=== PATIENT | male | born 1950 | race Caucasian/White ===

== ENCOUNTER → 2019-11-15 | Outpatient (CLI) | payer OTHER ==
[~2019-11-15] MED LIST: ALBU90OI6; ALBU90OI6 INH; ALPR1; ALPR1 PO; AMLO10 PO; AMLO5; ARIP10 PO; ASPI325 PO; ASPI81CH PO; Abilify2 MG PO; Antivert25 MG PO; BUTONI; CARI350 PO; CARV25 PO; CLOB.05TC TOP; CYCL10; DESV50 PO; Dyazide 37.5-21 EACH PO; FISH1000 PO; FLUT.05NI; FURO20; GABA300 PO; GABA300T24 PO; HYDCOR1TC TOP; HYDR10 PO; IMMODIUM A-D PO; Klor-Con 1010 MEQ PO; LISI10; LISINOPRIL PO; MEDICAL MARIJUANA; METH10; METH5; METO50; METPHE20 PO; METPHE5 PO; MORP15ER PO; MULVITMIND; Minocycline HC100 M1 PO; Norco 5-325 Ta1 EACH PO; OTC ALLERGY MED; OXYACE5T PO; POTCHL20ER; POTCHL20ER PO; PRAVASTATIN SOD10 MG PO; PSEU120ER PO; Pepto-Bism525 MG/15 PO; Pravachol PO; QUET100 PO; Robaxin-750750 MG PO; SODCHL.65S; SOMA350 MG PO; TIZA4 PO; TRIA80TC TOP; TRIHYD253A; TRIHYD253A PO; ZESTRIL40 MG PO
[2019-11-20 17:09] LABS: METHYLPHENIDATE 88 ng/mL (.); RITALINIC ACID >10000 ng/mL (.)
== END | disposition home or self-care (01) ==
LOC: LAB EV 08:42 → LAB SHORT 08:42
PROVIDERS: Nurse Practitioner Psychiatric/Mental Health
DX: Z51.81 Encounter for therapeutic drug level monitoring (principal); Z79.899 Other long term (current) drug therapy
CPT/HCPCS: G0480

== ENCOUNTER 2020-06-03 08:32 | Day surgery (SDC) | payer OTHER ==
[~2020-06-03] VITALS: Ht 180.3 cm; Wt 134.5 kg
== END 2020-06-03 11:05 | disposition home or self-care (01) ==
LOC: ORSCSDS 08:32
PROVIDERS: Internal Medicine Gastroenterology
PROC: 0DB78ZX Excision of Stomach, Pylorus, Via Natural or Artificial Opening Endoscopic, Diagnostic (ICD-10-PCS; principal; 2020-06-03 10:00)
PROC: 0DB58ZX Excision of Esophagus, Via Natural or Artificial Opening Endoscopic, Diagnostic (ICD-10-PCS; principal; 2020-06-03 10:00)
PROC: 0DB98ZX Excision of Duodenum, Via Natural or Artificial Opening Endoscopic, Diagnostic (ICD-10-PCS; principal; 2020-06-03 10:00)
DX: K21.9 Gastro-esophageal reflux disease without esophagitis (principal); K29.70 Gastritis, unspecified, without bleeding; G47.33 Obstructive sleep apnea (adult) (pediatric); E66.01 Morbid (severe) obesity due to excess calories; Z68.41 Body mass index [BMI] 40.0-44.9, adult; I10 Essential (primary) hypertension; E78.5 Hyperlipidemia, unspecified; J44.9 Chronic obstructive pulmonary disease, unspecified; R73.03 Prediabetes; Z79.899 Other long term (current) drug therapy
CPT/HCPCS: 82947; 87081; 88305; 88342; J2250; J2704; J7120

== ENCOUNTER → 2021-09-24 | Outpatient (CLI) | payer OTHER | END | disposition home or self-care (01) | LOC: LAB SHORT 09:25 → LAB 09:25 | DX: R22.42 Localized swelling, mass and lump, left lower limb (principal) | CPT/HCPCS: 85379 ==

== ENCOUNTER 2022-05-06 04:43 | Emergency (ER) | payer OTHER ==
[~2022-05-06] VITALS: Ht 180.3 cm; Wt 147.4 kg
== END 2022-05-06 06:52 | disposition home or self-care (01) ==
LOC: ER 04:43
DX: M16.12 Unilateral primary osteoarthritis, left hip (principal); I10 Essential (primary) hypertension; Z88.0 Allergy status to penicillin; Z91.040 Latex allergy status; Z79.899 Other long term (current) drug therapy
CPT/HCPCS: 73502; 96372; 99284-25; A9270; J1885

== ENCOUNTER 2022-05-11 08:52 | Emergency (ER) | payer OTHER ==
[~2022-05-11] VITALS: Ht 180.3 cm; Wt 136.1 kg
[2022-05-11] MEDS ORDERED: Roxicodone5 MG PO (12:25)
== END 2022-05-11 13:28 | disposition home or self-care (01) ==
LOC: ER 08:52
DX: M16.12 Unilateral primary osteoarthritis, left hip (principal); G89.29 Other chronic pain; M54.50 Low back pain, unspecified; R19.4 Change in bowel habit; I11.0 Hypertensive heart disease with heart failure; I50.9 Heart failure, unspecified; E11.9 Type 2 diabetes mellitus without complications; E78.5 Hyperlipidemia, unspecified; G47.30 Sleep apnea, unspecified; Z88.0 Allergy status to penicillin; Z91.040 Latex allergy status; Z79.899 Other long term (current) drug therapy
CPT/HCPCS: 72131; 99284-25; A9270

== ENCOUNTER 2022-06-16 11:32 | Inpatient (IN) | payer OTHER ==
[~2022-06-16] VITALS: Ht 180.3 cm; Wt 132.3 kg
[~2022-06-16 11:32] MED LIST changes: +Roxicodone5 MG PO
[2022-06-16 13:22] LABS: BASOPHILS ABSOLUTE AUTO 0.06 K/mm3 (0.00-0.23); BASOPHILS PERCENT AUTO 1 % (0-2); EOSINOPHILS PERCENT AUTO 2 % (0-6); Hematocrit 43.9 % (37.0-53.0); Hemoglobin 15.2 g/dL (13.5-17.5); IMMATURE GRAN ABSOLUTE AUTO 0.07 K/mm3 (0.00-0.10); IMMATURE GRAN PERCENT AUTO 1 % (0-1); LYMPHOCYTES ABSOLUTE AUTO 1.93 K/mm3 (0.84-5.20); LYMPHOCYTES PERCENT AUTO 17 % (21-46); MONOCYTES ABSOLUTE AUTO 0.82 K/mm3 (0.16-1.47); MONOCYTES PERCENT AUTO 7 % (4-13); Mean Corpuscular HGB 29.9 pg (26.0-34.0); Mean Corpuscular HGB Conc 34.6 g/dL (31.5-36.5); Mean Corpuscular Volume 86 fL (80-100); Mean Platelet Volume 9.4 fL (9.1-12.4); NEUTROPHILS ABSOLUTE AUTO 8.33 K/mm3 (1.96-9.15); NEUTROPHILS PERCENT AUTO 73 % (41-73); Platelet Count 314 K/mm3 (150-400); RDW Coefficient Variation 13.2 % (11.7-14.2); RDW Standard Deviation 41.2 fL (35.1-46.3); Red Blood Cell Count 5.09 M/mm3 (4.30-5.90); White Blood Cell Count 11.41 K/mm3 (4.00-11.30)
[2022-06-16 13:35] LABS: Bun/Creatinine Ratio 18.8 (12.0-20.0); Calcium, Blood 9.5 mg/dL (8.5-10.1); Creatinine, Blood 0.69 mg/dL (0.60-1.20); Potassium, Blood 3.8 mmol/L (3.5-5.5)
[2022-06-16 15:31] LABS: International Normalized Ratio 1.19; Prothrombin Time Results 12.4 Sec (9.7-11.5)
[2022-06-16] MEDS ORDERED: OMEP20ER PO (16:32)
[2022-06-16] MEDS ORDERED: FLOMAX0.4 MG PO (16:33)
[2022-06-16] MEDS ORDERED: TIZANIDINE HCL2 M1 PO (16:34)
[2022-06-16 17:28] VITALS: BP 197/66
--- NOTE | 2022-06-16 18:01 | NUR ---
ARRIVED FROM ED VIA GURNEY, TRANSFERRED TO BED, A&OX4, DENIES ANY PAIN AT THIS TIME, DR. TREVIÑO SAW PT THIS EVENING, ORIENTED TO ROOM AND CALL LIGHT, PAS PLACED, RT FOR CPAP, NPO AFTER MN.
[2022-06-16 19:27] VITALS: BP 164/83
[2022-06-17] VITALS (18 sets, daily range): BP systolic 94–154; BP diastolic 44–84
--- NOTE | 2022-06-17 04:48 | NUR ---
SHIFT SUMMARY ADMITTED FOR L HIP FX, PATIENT IS AOX4. NPO SINCE MIDNIGHT FOR POSSIBLE SURGERY. PAIN MANAGED WITH PO MEDS PER ORDERS. IV IS SALINE LOCKED PATIENT HAS A HX OF CHF, NOTED EDEMA IN BLE. LUNGS SOUNDS CLEAR AND DIMINSHED BASES. CPAP ON THROUGHOUT NIGHT. BLEED IN OF 3L O2. SATS REMAIN ABOVE 94%. CONT. PULSE OX ON. SCD'S IN PLACE. PATIENT VOIDING USING URINAL. DENIES N/T, N/V. VSS. CALL LIGHT IN REACH. WILL REPORT TO DAY RN
[2022-06-17 06:21] LABS: BASOPHILS ABSOLUTE AUTO 0.05 K/mm3 (0.00-0.23); BASOPHILS PERCENT AUTO 1 % (0-2); EOSINOPHILS ABSOLUTE AUTO 0.22 K/mm3 (0.00-0.68); EOSINOPHILS PERCENT AUTO 3 % (0-6); Hematocrit 41.6 % (37.0-53.0); Hemoglobin 14.1 g/dL (13.5-17.5); IMMATURE GRAN ABSOLUTE AUTO 0.04 K/mm3 (0.00-0.10); IMMATURE GRAN PERCENT AUTO 1 % (0-1); LYMPHOCYTES ABSOLUTE AUTO 1.65 K/mm3 (0.84-5.20); LYMPHOCYTES PERCENT AUTO 20 % (21-46); MONOCYTES ABSOLUTE AUTO 0.67 K/mm3 (0.16-1.47); MONOCYTES PERCENT AUTO 8 % (4-13); Mean Corpuscular HGB 29.5 pg (26.0-34.0); Mean Corpuscular HGB Conc 33.9 g/dL (31.5-36.5); Mean Corpuscular Volume 87 fL (80-100); NEUTROPHILS ABSOLUTE AUTO 5.51 K/mm3 (1.96-9.15); NEUTROPHILS PERCENT AUTO 68 % (41-73); Platelet Count 256 K/mm3 (150-400); RDW Coefficient Variation 13.5 % (11.7-14.2); RDW Standard Deviation 42.7 fL (35.1-46.3); Red Blood Cell Count 4.78 M/mm3 (4.30-5.90); White Blood Cell Count 8.14 K/mm3 (4.00-11.30)
--- NOTE | 2022-06-17 10:52 | NUR ---
Spiritual Care Pt. Request Attempted Pt. is soundly resting. Will attempt to see Pt. before the end of my flex shift.
--- NOTE | 2022-06-17 11:50 | NUR ---
PATIENT IS BEING TAKEN BACK TO THE OR.
--- NOTE | 2022-06-17 12:25 | NUR ---
History, Chart, Medications and Allergies reviewed before start of procedure. Lungs clear T/O to Auscultation. Patient confirms NPO status and agrees with scheduled surgery. Pre-Op teaching done. Pt verbalizes understanding. SAUL PATEL AND PHIL ESTRADA SENT WITH PT TO OR. REPORT TO ANDI LIGHT
--- NOTE | 2022-06-17 17:22 | NUR ---
PATIENT CAME BACK FROM PACU TODAY AT 1720. POD 0 LEFT TOTAL HIP- POSTERIOR PATIENT IS A&OX4. VS ARE WNL AND IS ON RA. PATIENT REPORTS A 2/10 PAIN BUT REFUSES PAIN MEDICATION AT THIS TIME. HIS LEFT HIP HAS FOAM WITH GAUZE X2 THAT ARE C/D/I. DENIES NUMBNESS OR TINGLING. CAN WIGGLE ALL FINGERS AND TOES WHEN ASKED. HE IS TOLERATING PO INTAKE AND HAS ATTENDS IN PLACE. IMMOBILIZER IS ALSO IN PLACE ON THE LEFT LEG WITH A ROLLED UP TOWEL IN BETWEEN LEGS. PATIENT IS LAYING IN BED WATCHING TV WITH CALL LIGHT IN REACH.
[2022-06-18 00:09] VITALS: BP 136/72
[2022-06-18 04:30] VITALS: BP 139/75
[2022-06-18 04:48] LABS: BASOPHILS ABSOLUTE AUTO 0.02 K/mm3 (0.00-0.23); BASOPHILS PERCENT AUTO 0 % (0-2); EOSINOPHILS PERCENT AUTO 0 % (0-6); Hematocrit 36.4 % (37.0-53.0); Hemoglobin 12.4 g/dL (13.5-17.5); IMMATURE GRAN ABSOLUTE AUTO 0.07 K/mm3 (0.00-0.10); IMMATURE GRAN PERCENT AUTO 1 % (0-1); LYMPHOCYTES ABSOLUTE AUTO 1.57 K/mm3 (0.84-5.20); LYMPHOCYTES PERCENT AUTO 13 % (21-46); MONOCYTES ABSOLUTE AUTO 0.71 K/mm3 (0.16-1.47); MONOCYTES PERCENT AUTO 6 % (4-13); Mean Corpuscular HGB 29.7 pg (26.0-34.0); Mean Corpuscular HGB Conc 34.1 g/dL (31.5-36.5); Mean Corpuscular Volume 87 fL (80-100); NEUTROPHILS ABSOLUTE AUTO 9.84 K/mm3 (1.96-9.15); NEUTROPHILS PERCENT AUTO 81 % (41-73); Platelet Count 264 K/mm3 (150-400); RDW Coefficient Variation 13.2 % (11.7-14.2); RDW Standard Deviation 42.3 fL (35.1-46.3); Red Blood Cell Count 4.17 M/mm3 (4.30-5.90); White Blood Cell Count 12.21 K/mm3 (4.00-11.30)
[2022-06-18 05:13] LABS: Albumin, Blood 2.5 g/dL (3.4-5.0); Anion Gap 2 mmol/L (6-16); Blood Urea Nitrogen 19 mg/dL (8-24); Bun/Creatinine Ratio 25.3 (12.0-20.0); CO2, Blood 30 mmol/L (21-32); Calcium, Blood 8.4 mg/dL (8.5-10.1); Chloride, Blood 107 mmol/L (98-108); Creatinine, Blood 0.75 mg/dL (0.60-1.20); Glomerular Filtration Rate 95 (60-); Glucose, Blood 128 mg/dL (70-99); Magnesium, Blood 2.1 mg/dL (1.6-2.4); Phosphorus, Blood 3.4 mg/dL (2.5-4.9); Potassium, Blood 3.7 mmol/L (3.5-5.5); Sodium, Blood 139 mmol/L (136-145)
[2022-06-18 07:24] VITALS: BP 146/107
[2022-06-18 07:26] VITALS: BP 143/77
[2022-06-18 15:39] VITALS: BP 119/61
--- NOTE | 2022-06-18 18:24 | NUR ---
SHIFT SUMMARY PT POD 1 L POSTERIOR TOTAL HIP. DRESSINGS CHANGED BY THIS MORNING. C/D/I. GAUZE/ FOAM TAPE IN PLACE. CLOSURE WITH YASHIRA POSTERIOR AND STITCHES ANTERIOR. IMMOBLIZER ON L KNEE IN PLACE WITH ROLLED TOWEL BETWEEN LEGS. A&OX3. O2>95% ON RA. PT INCONTINENT, ATTENDS IN PLACE AND USES URINAL INDEPENDENTLY. PT HAS REDNESS IN FOLDS, MEDICATED PER EMAR. SKIN TEAR ON POSTERIOR UPPER THIGH NOTED IN ASSESSMENT. TODAY IS PT BIRTHDAY. PT ON THE PHONE WITH FAMILY, CALL LIGHT WITHIN REACH. WILL REPORT TO [facility] NURSE.
[2022-06-18 19:18] VITALS: BP 105/61
--- NOTE | 2022-06-19 03:52 | NUR ---
SHIFT SUMMERY PT RESTING IN BED, CALL LIGHTIN REACH. PT HAD INCONT URINE AND BEDDING CHANGED, PT ABLE TO TURN SIDE TO SIDE AND PULL SELF UP TO ASSIST WITH BEDING CHANGE. CALL LIGHT IN REACH.
[2022-06-19 04:22] VITALS: BP 138/60
[2022-06-19 07:26] VITALS: BP 144/72
--- NOTE | 2022-06-19 15:49 | NUR ---
SHIFT SUMMARY POD 2 L TOTAL POSTERIOR HIP. A&OX4. PT USES URINAL, RESIDUAL DRIBBLE. 1 PERSON ASSIST WITH WALKER TO BEDSIDE COMMODE. INCISION C/D/I. NOTICED APPROX 2CM SKIN TEAR IN L ABD FOLD. REDNESS REDUCED WITH USE OF NYSTATIN CREAM. PT PAIN WITHIN ACCEPTABLE LIMITS, MEDICATED PER EMAR. USE OF COLD THERAPY ON HIP. PT RESTING IN BED, CALL LIGHT WITHIN REACH.
[2022-06-19 16:03] VITALS: BP 139/45
[2022-06-19 16:04] VITALS: BP 137/52
[2022-06-19 16:06] VITALS: BP 114/94
--- NOTE | 2022-06-19 18:36 | NUR ---
UPDATE ASSUMED CARE OF PT AT 1600. SINCE PT HAS BEEN UP TO THE COMMODE 4 TIMES HAVING LOOSE STOOLS. TRANSFERRING WITH WALKER AND 2 PERSON ASST. PT DENIES ANY PAIN.
[2022-06-19 19:28] VITALS: BP 119/66
[2022-06-20 04:03] VITALS: BP 126/61
--- NOTE | 2022-06-20 04:57 | NUR ---
SUMMARY: NO ACUTE EVENTS OVERNIGHT. VSS. AOX4. PAIN MEDS PER EMAR. PATIENT AMBULATED 2X ASSIST BETWEEN BED AND CHAIR. INC THROUGHOUT NIGHT CHANGED FREQUENTLY. BED ALARM ON. PATIENT ABLE TO MAKE NEEDS KNOWN.
[2022-06-20 07:24] VITALS: BP 133/67
[2022-06-20] MEDS ORDERED: BACTRIM DS TAB1 EAC1 PO (07:35)
[2022-06-20 11:11] VITALS: BP 143/71
[2022-06-20 14:45] VITALS: BP 109/60
--- NOTE | 2022-06-20 16:12 | NUR ---
SHIFT SUMMARY PATIENT IS ALERT AND ORIENTED X3. PATIENT HAS HAD NO ACUTE EVENTS THIS SHIFT. VITAL SIGNS REVIEWED. PATIENT HAS BEEN A ONE PERSON ASSIST TO BATHROOM FOR FREQUENT URINATION. PATIENT HAS NOT COMPLAINED OF SOB, NAUSEA, VOMITTING. PAIN IS WELL CONTROLLED WITH SCHEDULED PAIN MEDICATION. PATIENT IS ABLE TO MAKE NEEDS KNOWN. PATIENT HAS BEEN RESTING IN RECLINER MOST OF SHIFT. BED IN LOCKED AND LOWEST POSITION. CALL LIGHT IN PLACE. WILL MONITOR UNTIL SHIFT CHANGE.
--- NOTE | 2022-06-20 17:51 | NUR ---
DISCHARGE SUMMARY PATIENT IS BEING DISCHARGED TO [facility]. REFER TO SHIFT SUMMARY. PATIENT REQUESTED TORADOL BEFORE BEING TRANSFERED. [facility] PICKED UP PATIENT.
== END 2022-06-20 17:50 | DRG 522 ==
LOC: ER 11:32 → SURS 16:16
PROVIDERS: Orthopaedic Surgery; Student in an Organized Health Care Education/Training Program; ADMIT Family Medicine
PROC: 0SRB0JA Replacement of Left Hip Joint with Synthetic Substitute, Uncemented, Open Approach (ICD-10-PCS; principal; 2022-06-17 12:30)
DX: S72.002A Fracture of unspecified part of neck of left femur, initial encounter for closed fracture (principal); Z68.41 Body mass index [BMI] 40.0-44.9, adult; F41.9 Anxiety disorder, unspecified; G47.33 Obstructive sleep apnea (adult) (pediatric); F32.A Depression, unspecified; M19.90 Unspecified osteoarthritis, unspecified site; E66.9 Obesity, unspecified; I11.0 Hypertensive heart disease with heart failure; I50.9 Heart failure, unspecified; I27.20 Pulmonary hypertension, unspecified; E78.5 Hyperlipidemia, unspecified; Z96.653 Presence of artificial knee joint, bilateral; Z98.890 Other specified postprocedural states; Z88.0 Allergy status to penicillin; Z91.040 Latex allergy status; Z79.51 Long term (current) use of inhaled steroids; Z79.899 Other long term (current) drug therapy; W18.39XA Other fall on same level, initial encounter; Y92.000 Kitchen of unspecified non-institutional (private) residence as the place of occurrence of the external cause
CPT/HCPCS: 36415; 72170; 73502; 73560-LT; 80048; 80069; 82947; 83036; 83735; 85025; 85610; 85730; 86850; 86900; 86901; 88305; 88311; 93005; 93010; 94660; 94760; 94762; 96374; 97110; 97116; 97161; 97166; 97530; 97535; 99285-25; A9270; C1713; C1776; J0171; J0690; J0735; J1100; J1170; J1815; J1885; J2370; J2405; J2704; J2795; J3010; J3370; J7120

== ENCOUNTER 2022-08-29 00:24 | Emergency (ER) | payer OTHER ==
[~2022-08-29] VITALS: Ht 180.3 cm; Wt 136.1 kg
[~2022-08-29 00:24] MED LIST changes: +BACTRIM DS TAB1 EAC1 PO; +FLOMAX0.4 MG PO; +OMEP20ER PO; +TIZANIDINE HCL2 M1 PO
[2022-08-29 05:45] VITALS: BP 132/75
== END 2022-08-29 06:20 | disposition home or self-care (01) ==
LOC: ER 00:24
DX: T84.021A Dislocation of internal left hip prosthesis, initial encounter (principal); W06.XXXA Fall from bed, initial encounter; Z88.0 Allergy status to penicillin; Z91.040 Latex allergy status; Z79.899 Other long term (current) drug therapy; I11.0 Hypertensive heart disease with heart failure; I50.9 Heart failure, unspecified; G47.30 Sleep apnea, unspecified; E11.9 Type 2 diabetes mellitus without complications; X58.XXXA Exposure to other specified factors, initial encounter; M19.90 Unspecified osteoarthritis, unspecified site
CPT/HCPCS: 27265; 73501; 73502; 73560-LT; 73560-RT; 96374-59; 96375-59; 99152; 99284-25; J1170; J2405; J2704; J3010; J7030

== ENCOUNTER 2022-09-21 10:47 | Emergency (ER) | payer OTHER ==
[~2022-09-21] VITALS: Ht 177.8 cm; Wt 127.0 kg
[2022-09-21] MEDS ORDERED: AMLODIPINE BESYL5 MG PO (11:05)
[2022-09-21] MEDS ORDERED: DESVENLAFAXINE100 M3 PO (11:05)
[2022-09-21] MEDS ORDERED: DEPAKOTE ER500 M2 PO (11:06)
[2022-09-21] MEDS ORDERED: MELO7.5 PO (11:07)
[2022-09-21 11:15] LABS: BASOPHILS ABSOLUTE AUTO 0.03 K/mm3 (0.00-0.23); BASOPHILS PERCENT AUTO 0 % (0-2); EOSINOPHILS ABSOLUTE AUTO 0.14 K/mm3 (0.00-0.68); EOSINOPHILS PERCENT AUTO 2 % (0-6); Hemoglobin 12.6 g/dL (13.5-17.5); IMMATURE GRAN ABSOLUTE AUTO 0.03 K/mm3 (0.00-0.10); IMMATURE GRAN PERCENT AUTO 0 % (0-1); LYMPHOCYTES PERCENT AUTO 26 % (21-46); MONOCYTES ABSOLUTE AUTO 0.66 K/mm3 (0.16-1.47); MONOCYTES PERCENT AUTO 8 % (4-13); Mean Corpuscular HGB 27.3 pg (26.0-34.0); Mean Corpuscular HGB Conc 32.3 g/dL (31.5-36.5); Mean Corpuscular Volume 84 fL (80-100); Mean Platelet Volume 9.6 fL (9.1-12.4); NEUTROPHILS ABSOLUTE AUTO 4.99 K/mm3 (1.96-9.15); NEUTROPHILS PERCENT AUTO 64 % (41-73); Platelet Count 268 K/mm3 (150-400); RDW Coefficient Variation 15.4 % (11.7-14.2); RDW Standard Deviation 47.6 fL (35.1-46.3); Red Blood Cell Count 4.62 M/mm3 (4.30-5.90); White Blood Cell Count 7.85 K/mm3 (4.00-11.30)
[2022-09-21 11:42] LABS: Albumin, Blood 2.7 g/dL (3.4-5.0); Albumin/Globulin Ratio 0.6 (0.8-1.8); Bilirubin, Total 0.5 mg/dL (0.1-1.0); Bun/Creatinine Ratio 32.5 (12.0-20.0); Calcium, Blood 8.5 mg/dL (8.5-10.1); Creatinine, Blood 0.83 mg/dL (0.60-1.20); Globulin, Blood 4.3 g/dL (2.2-4.0)
[2022-09-21 13:45] VITALS: BP 115/58
[2022-09-21] MEDS ORDERED: CEPH500 PO (13:50)
== END 2022-09-21 14:03 | disposition home or self-care (01) ==
LOC: ER 10:47
PROVIDERS: Emergency Medicine
DX: T42.6X1A Poisoning by other antiepileptic and sedative-hypnotic drugs, accidental (unintentional), initial encounter (principal); L03.116 Cellulitis of left lower limb; I11.0 Hypertensive heart disease with heart failure; I50.9 Heart failure, unspecified; E78.5 Hyperlipidemia, unspecified; E11.9 Type 2 diabetes mellitus without complications; Z88.0 Allergy status to penicillin; Z91.040 Latex allergy status; Z79.899 Other long term (current) drug therapy
CPT/HCPCS: 80053; 84484; 85025; 93005; 93010; 99284-25; J7030

== ENCOUNTER 2022-09-25 07:34 | Emergency (ER) | payer OTHER ==
[~2022-09-25] VITALS: Ht 177.8 cm; Wt 127.0 kg
[~2022-09-25 07:34] MED LIST changes: +AMLODIPINE BESYL5 MG PO; +CEPH500 PO; +DEPAKOTE ER500 M2 PO; +DESVENLAFAXINE100 M3 PO; +MELO7.5 PO
[2022-09-25 08:02] LABS: BASOPHILS ABSOLUTE AUTO 0.03 K/mm3 (0.00-0.23); BASOPHILS PERCENT AUTO 0 % (0-2); EOSINOPHILS ABSOLUTE AUTO 0.04 K/mm3 (0.00-0.68); EOSINOPHILS PERCENT AUTO 0 % (0-6); Hematocrit 41.2 % (37.0-53.0); Hemoglobin 13.6 g/dL (13.5-17.5); IMMATURE GRAN ABSOLUTE AUTO 0.07 K/mm3 (0.00-0.10); IMMATURE GRAN PERCENT AUTO 1 % (0-1); LYMPHOCYTES PERCENT AUTO 19 % (21-46); MONOCYTES ABSOLUTE AUTO 0.64 K/mm3 (0.16-1.47); MONOCYTES PERCENT AUTO 7 % (4-13); Mean Corpuscular HGB 27.2 pg (26.0-34.0); Mean Corpuscular Volume 82 fL (80-100); Mean Platelet Volume 9.4 fL (9.1-12.4); NEUTROPHILS ABSOLUTE AUTO 6.79 K/mm3 (1.96-9.15); NEUTROPHILS PERCENT AUTO 73 % (41-73); Platelet Count 257 K/mm3 (150-400); RDW Coefficient Variation 15.1 % (11.7-14.2); RDW Standard Deviation 45.4 fL (35.1-46.3); White Blood Cell Count 9.37 K/mm3 (4.00-11.30)
[2022-09-25 08:14] LABS: Albumin/Globulin Ratio 0.6 (0.8-1.8); Bilirubin, Total 0.6 mg/dL (0.1-1.0); Bun/Creatinine Ratio 15.3 (12.0-20.0); Calcium, Blood 8.7 mg/dL (8.5-10.1); Creatinine, Blood 0.72 mg/dL (0.60-1.20); Globulin, Blood 4.9 g/dL (2.2-4.0); Potassium, Blood 3.6 mmol/L (3.5-5.5); Total Protein, Blood 7.9 g/dL (6.4-8.2)
[2022-09-25 08:55] VITALS: BP 171/94
== END 2022-09-25 09:10 | disposition home or self-care (01) ==
LOC: ER 07:34
PROVIDERS: Emergency Medicine
DX: T84.021A Dislocation of internal left hip prosthesis, initial encounter (principal); S91.302A Unspecified open wound, left foot, initial encounter; R60.0 Localized edema; I11.0 Hypertensive heart disease with heart failure; I50.9 Heart failure, unspecified; E11.9 Type 2 diabetes mellitus without complications; E78.5 Hyperlipidemia, unspecified; E66.01 Morbid (severe) obesity due to excess calories; Z68.41 Body mass index [BMI] 40.0-44.9, adult; Z88.0 Allergy status to penicillin; Z91.040 Latex allergy status; Z79.899 Other long term (current) drug therapy; W18.30XA Fall on same level, unspecified, initial encounter
CPT/HCPCS: 27265; 73501; 73502; 80053; 82550; 85025; 99152; 99284-25; J2704; J7030

== ENCOUNTER 2022-10-13 09:13 | Inpatient (IN) | payer OTHER ==
[~2022-10-13] VITALS: Ht 175.3 cm; Wt 126.3 kg
[2022-10-13 09:28] LABS: Source, Urine Clean Catch
[2022-10-13 09:30] LABS: Appearance, Urine Clear (Clear); Bilirubin, Urine Neg (Neg); Blood, Urine 1+ (Neg); Color, Urine Yellow (P-Yellow); Glucose Qualitative, Urine Neg (Neg); Ketones, Urine 2+ (Neg); Leukocyte Esterase, Urine 1+ (Neg); Nitrite, Urine Neg (Neg); Protein, Urine 1+ (Neg); Urobilinogen, Urine NORM (Normal)
[2022-10-13 09:48] LABS: Mucus Heavy (0-Heavy)
[2022-10-13 09:49] LABS: White Blood Cells, Urine 0-2 /hpf (0-5)
[2022-10-13 09:50] LABS: Red Blood Cells, Urine 0-2 /hpf (0-2)
[2022-10-13 09:51] LABS: Hyaline Casts 0-2 /lpf (0-2); Squamous Epithelial Cells Not Seen /hpf (Few)
[2022-10-13 09:52] LABS: Bacteria Mod /hpf
[2022-10-13 16:13] VITALS: BP 145/71
--- NOTE | 2022-10-13 17:39 | NUR ---
SHIFT SUMMARY PT REPORTS PAIN TOLERABLE WHILE AT REST. PAIN LOCATED TO LEFT HIP. BILATERAL LEGS WITH DRESSINGS ON. PATIENT REPORTS HE SEES HOME HEALTH FOR DRESSING CHANGES "EVERY TWO WEEKS" UNABLE TO REMOVE DRESSINGS AT THIS TIME THEY ARE STUCK TO LEGS, PT REPORTS THEY ARE NOT DUE TO BE CHANGED. INPATIENT WOUND CONSULT PLACED. WILL ATTEMPT TO REMOVE AND REDRESS WOUNDS PATIENT TOLERATES. PLAN IS FOR PATIENT TO BE NPO AT MIDNIGHT FOR REDUCTION OF DISLOCATION TOMORROW. PT AGREEABLE TO PLAN.
--- NOTE | 2022-10-13 18:14 | NUR ---
DRESSING CHANGED TO RLE. SMALL WEEPING SORES ON CALF. COVERED WITH ABSORBANT DRESSING. CIRCULAR PUNCHED OUT WOUND TO DORSAL FOOT AT THE ANKLE. YELLOWISH DRAINAGE IN WOUND PRIOR TO CLEANSING, REDNESS AROUND WOUND. ALGINATE PLACED AND COVERED WITH NON ADHERANT DRESSING TO KEEP DRESSINGS IN PLACE. UNABLE TO REMOVE DRESSING TO LLE R/T PAIN AND IMMOBILIZER, PT WANTS TO ATTEMPT TOMORROW. PT STATES AGAIN THAT IT HAS BEEN TWO WEEKS AT LEAST SINCE DRESSINGS HAVE BEEN CHANGED, HE WAS SUPPOSED TO SCHEDULE AN APPOINTMENT TODAY BUT CANCELED DUE TO BEING ADMITTED TO HOSPITAL.
[2022-10-13 19:16] VITALS: BP 142/71
[2022-10-14] VITALS (21 sets, daily range): BP systolic 102–137; BP diastolic 52–88
[2022-10-14 04:34] LABS: BASOPHILS ABSOLUTE AUTO 0.04 K/mm3 (0.00-0.23); BASOPHILS PERCENT AUTO 1 % (0-2); EOSINOPHILS ABSOLUTE AUTO 0.42 K/mm3 (0.00-0.68); EOSINOPHILS PERCENT AUTO 6 % (0-6); Hemoglobin 12.3 g/dL (13.5-17.5); IMMATURE GRAN ABSOLUTE AUTO 0.04 K/mm3 (0.00-0.10); IMMATURE GRAN PERCENT AUTO 1 % (0-1); LYMPHOCYTES ABSOLUTE AUTO 2.11 K/mm3 (0.84-5.20); LYMPHOCYTES PERCENT AUTO 29 % (21-46); MONOCYTES ABSOLUTE AUTO 0.71 K/mm3 (0.16-1.47); MONOCYTES PERCENT AUTO 10 % (4-13); Mean Corpuscular HGB 26.7 pg (26.0-34.0); Mean Corpuscular HGB Conc 32.4 g/dL (31.5-36.5); Mean Corpuscular Volume 83 fL (80-100); Mean Platelet Volume 9.1 fL (9.1-12.4); NEUTROPHILS ABSOLUTE AUTO 4.05 K/mm3 (1.96-9.15); NEUTROPHILS PERCENT AUTO 55 % (41-73); Platelet Count 291 K/mm3 (150-400); RDW Coefficient Variation 15.9 % (11.7-14.2); RDW Standard Deviation 47.8 fL (35.1-46.3); White Blood Cell Count 7.37 K/mm3 (4.00-11.30)
[2022-10-14 04:56] LABS: Albumin, Blood 2.3 g/dL (3.4-5.0); Albumin/Globulin Ratio 0.5 (0.8-1.8); Bilirubin, Total 0.8 mg/dL (0.1-1.0); Calcium, Blood 8.3 mg/dL (8.5-10.1); Creatinine, Blood 0.73 mg/dL (0.60-1.20); Globulin, Blood 4.6 g/dL (2.2-4.0); Potassium, Blood 3.3 mmol/L (3.5-5.5); Total Protein, Blood 6.9 g/dL (6.4-8.2)
--- NOTE | 2022-10-14 05:14 | NUR ---
SHIFT SUMMARY VSS. PT SLEPT THROUGH THE ENTIRE NIGHT. REPOSITIONED TOLLERATED. HAS BEEN NPO SINCE 0000. DURING AM VITALS IT WAS NOTED PT HAS NOT VOIDED T/O THE NIGHT. PT IS SLEEPING EXTREMELY HARD AND IS AROUNSABLE, BUT IMMEDIATELY FALLS BACK ASLEEP AND IS UNABLE TO AROUSE ENOUGH TO VOID. LAST BLADDER SCAN WAS 398 MLS PLAN TO BLADDER SCAN AT 0600 AND ASSESS IS STRAIT CATH IS NEEDED. PT MEDICATED FOR PAIN ONCE WITH NORCO, AND ONCE WITH KAILASH FLEX FOR MUSCLE SPASMS. WOUNDS NOTED T/O PTS LEGS. DURING BLADDER SCAN, PURULENT DRAINAGE NOTED FROM RIGHT SIDE OF PTS ABD FOLD/LEG, FOUL ODOR NOTED. PLAN FOR PT TO GO TO OR TODAY TO HAVE L HIP ASSESS FOR REDUCTION.
--- NOTE | 2022-10-14 11:48 | NUR ---
PT TO OR AT THIS TIME
--- NOTE | 2022-10-14 12:22 | NUR ---
PT HERE FROM SURGICAL FLOOR VIA BED. PT IS SLEEPY BUT WAKES EASILY TO VOICE AND ANSWERS APPROPRIATELY. PT HAS DOUGLASS CATH DRAINING TODD URINE. PT HAS BANDAGES ON BILATERAL LOWER EXTREMETIES. MEPILEX DRESSING ON RIGHT KNEE. LEFT HIP MARKED PER DR. POWELL AREA IS FIRM, PINK AND WARM TO TOUCH.
--- NOTE | 2022-10-14 12:34 | NUR ---
History, Chart, Medications and Allergies reviewed before start of procedure.Patient confirms NPO status and agrees with scheduled surgery. Pre-Op teaching done. Pt verbalizes understanding.
--- NOTE | 2022-10-14 14:03 | NUR ---
10/14/22 1403 Juanita Castillo PATIENT RECEIVED 1GM OF VANCO IV IN THE PREOP SETTING PRIOR TO ARRIVING IN THE OR. PATIENT ALSO RECEIVED AN ADDITIONAL 1GM OF ANCEF FOR A TOTAL OF 3GM ANCEF IV BY AT 1232 IN THE OR.
--- NOTE | 2022-10-14 18:45 | NUR ---
POST OP: REPORT RECIEVED FROM BOATING SAFETY OFFICEROMARI. PT TO UNIT AT 1630. VSS, A/O, SURGICAL SITES WNL. JENN WRAP FROM OLD DRESSING AT L [place] REMOVED AND PICTURES TAKEN BY NADEGE PRIDE. WOUND DRESSED WITH ALGINATE, EXUDRY AND KERLEX. DRESSING AT L [place] ALSO REMOVED AND REPLACED. PT TO SEE ZIPPER SETTER LOCKSTITCH ON MONDAY WHEN SHE RETURNS TO WORK. L KNEE IMMOBILIZER PLACED. ABDUCTION PILLOW ALSO IN PLACE. PT DENIES ANY PAIN AT THIS TIME. WILL CTM AND REPORT TO NOC RN.
[2022-10-15 01:01] VITALS: BP 105/52
[2022-10-15 03:25] VITALS: BP 114/55
[2022-10-15 04:24] LABS: BASOPHILS ABSOLUTE AUTO 0.01 K/mm3 (0.00-0.23); BASOPHILS PERCENT AUTO 0 % (0-2); EOSINOPHILS PERCENT AUTO 0 % (0-6); Hematocrit 35.7 % (37.0-53.0); Hemoglobin 11.5 g/dL (13.5-17.5); IMMATURE GRAN ABSOLUTE AUTO 0.03 K/mm3 (0.00-0.10); IMMATURE GRAN PERCENT AUTO 0 % (0-1); LYMPHOCYTES ABSOLUTE AUTO 1.34 K/mm3 (0.84-5.20); LYMPHOCYTES PERCENT AUTO 15 % (21-46); MONOCYTES ABSOLUTE AUTO 0.39 K/mm3 (0.16-1.47); MONOCYTES PERCENT AUTO 4 % (4-13); Mean Corpuscular HGB 26.7 pg (26.0-34.0); Mean Corpuscular HGB Conc 32.2 g/dL (31.5-36.5); Mean Corpuscular Volume 83 fL (80-100); Mean Platelet Volume 9.4 fL (9.1-12.4); NEUTROPHILS ABSOLUTE AUTO 7.23 K/mm3 (1.96-9.15); NEUTROPHILS PERCENT AUTO 80 % (41-73); Platelet Count 268 K/mm3 (150-400); RDW Coefficient Variation 15.5 % (11.7-14.2); RDW Standard Deviation 46.7 fL (35.1-46.3)
[2022-10-15 05:25] LABS: Calcium, Blood 8.2 mg/dL (8.5-10.1); Creatinine, Blood 0.85 mg/dL (0.60-1.20); Magnesium, Blood 1.9 mg/dL (1.6-2.4); Potassium, Blood 4.3 mmol/L (3.5-5.5)
--- NOTE | 2022-10-15 06:27 | NUR ---
SHIFT SUMMARY PT A&OX3, LITTLE TROUBLE WITH THE DATE. NO ACUTE CHANGES, VSS. PT RESTED MAJORITY OF SHIFT. PAIN MANAGED WITH SCHEDULE MEDICATIONS. TOLERATING PO INTAKE. DRESSING TO L HIP C/D/I. DRESSING TO BI-LAT LOWER EXT CHANGED 10/14 ON DAY SHIFT, C/D/I. IMMOBILIZER IN PLACE. CALL LIGHT WITHIN REACH.
[2022-10-15 07:10] VITALS: BP 114/72
[2022-10-15 14:47] VITALS: BP 125/58
--- NOTE | 2022-10-15 18:30 | NUR ---
BLE DRESSINGS REMOVED AND WOUNDS CLEANSED. DRESSING ABSORBANT PAD, AND KERLEX REAPPLIED TO WOUNDS. ALLEVYN DRESSINGS PLACED ON PT'S KNEES. KNEE IMMOBILIZER PLACED BACK ON PT'S LEG. POSTERIOR HIP PRECAUTIONS MAINTAINED.
--- NOTE | 2022-10-15 18:36 | NUR ---
SHIFT SUMMARY PT IS POD#1 FROM L HIP REVISION. PAIN MANAGED WITH TYLENOL AND TORADOL. PT ATTEMPTED TO GET OOB WITH THERAPY BUT WAS UNABLE. PT IS TOLERATING PO. PT IS STILL GETTING IV ABX. PLAN OF CARE ONGOING.
[2022-10-15 19:50] VITALS: BP 136/63
[2022-10-16 03:50] VITALS: BP 142/63
--- NOTE | 2022-10-16 05:36 | NUR ---
SHIFT SUMMARY PT A&OX3, PLEASANT AND COOPERATIVE WITH CARE. NO ACUTE CHANGES, VSS. PAIN MANAGED WITH SCHEDULED TYLENOL/TORADOL. TOLERATING PO INTAKE. DOUGLASS REMOVED @0400, CONDOM CATH IN PLACE NOW. PT HAD SMALL/SMEAR BM. AQUACEL TO L HIP CHANGED. CALLS APPROPRIATELY, CALL LIGHT WITHIN REACH.
[2022-10-16 08:09] VITALS: BP 141/70
--- NOTE | 2022-10-16 11:18 | NUR ---
DR. PAK ROUNDED DISCUSSED HOLDING AM METOPROLOL R/T HR <60. DISCUSSED SEROQUEL DOSAGE AND THAT IS APPEARED TO BE CAUSING CONFUSION, DR. PAK LOWERED DOSE AND CHANGED MEDICATION TO PRN. PLAN OF CARE ONGOING.
[2022-10-16 11:53] LABS: Creatinine, Blood 0.63 mg/dL (0.60-1.20); Vancomycin, Trough 13.5 ug/mL (5.0-10.0)
[2022-10-16 14:53] VITALS: BP 146/66
--- NOTE | 2022-10-16 15:45 | NUR ---
L HIP DRAINAGE PT HAS HAD HEAVY SEROSANGUINOUS DRAINAGE FROM L HIP. DRESSING CHANGED AT 1430. BULKY DRESSING OF ABD PAD, GAUZE AND FOAM TAPE PLACED. DR. POWELL NOTIFIED. PER DR. POWELL XARELTO SHOULD BE HELD. DR. PAK NOTIFIED THAT XARELTO WOULD BE HELD TONIGHT. HE WAS ALSO NOTIFIED THAT SCD'S CANNOT BE PLACED R/T BLE WOUNDS. DR. PAK CONFIRMED THAT XARELTO ORDER SHOULD BE DC'D AT THIS TIME.
[2022-10-16 19:31] VITALS: BP 148/66
--- NOTE | 2022-10-16 19:46 | NUR ---
SHIFT SUMMARY PT IS POD#2 FROM L HIP REVISION WITH DR. POWELL. PT HAD INCREASED SEROSANGUINOUS DRAINAGE FROM INCISION SITE, DR. POWELL NOTIFIED AND BULKY DRESSING PLACED ORDERED. PT HAS BEEN INCONTINENT OF MULTIPLE BMS TODAY. PT IS INCONTINENT OF URINE AND IS USING A CONDOM CATH. PT HAS BEEN ABLE TO DO SOME REPOSITIONING WITH VERBAL COACHING. ALLEVYN DRESSING REMOVED FROM BUTTOCKS R/T MULTIPLE BMS SOILING DRESSING, HARMEET RN NOTIFIED. BLE DRESSINGS WILL NEED CHANGED TONIGHT, HARMEET RN NOTIFIED; MESSAGE LEFT FOR WOUND CENTER CONSULT 10/15/22. PT IS TOLERATING PO. PLAN FOR SNF WHEN STABLE FOR DISCHARGE. REPORT GIVEN TO HARMEET RN, DURING BEDSIDE REPORT PT SITTING UP IN BED WITH CALL LIGHT IN REACH AND INVOLVED IN REPORT.
[2022-10-17 02:31] VITALS: BP 133/61
[2022-10-17 07:16] VITALS: BP 139/61
--- NOTE | 2022-10-17 07:42 | NUR ---
SUMMARY NO ACUTE CHANGES. JER EFFECTIVE FOR PAIN.
[2022-10-17 12:41] LABS: BASOPHILS ABSOLUTE AUTO 0.07 K/mm3 (0.00-0.23); BASOPHILS PERCENT AUTO 1 % (0-2); EOSINOPHILS PERCENT AUTO 6 % (0-6); Hematocrit 36.6 % (37.0-53.0); Hemoglobin 11.8 g/dL (13.5-17.5); IMMATURE GRAN ABSOLUTE AUTO 0.04 K/mm3 (0.00-0.10); IMMATURE GRAN PERCENT AUTO 1 % (0-1); LYMPHOCYTES ABSOLUTE AUTO 1.65 K/mm3 (0.84-5.20); LYMPHOCYTES PERCENT AUTO 20 % (21-46); MONOCYTES ABSOLUTE AUTO 0.57 K/mm3 (0.16-1.47); MONOCYTES PERCENT AUTO 7 % (4-13); Mean Corpuscular HGB 27.1 pg (26.0-34.0); Mean Corpuscular HGB Conc 32.2 g/dL (31.5-36.5); Mean Corpuscular Volume 84 fL (80-100); Mean Platelet Volume 9.1 fL (9.1-12.4); NEUTROPHILS ABSOLUTE AUTO 5.24 K/mm3 (1.96-9.15); NEUTROPHILS PERCENT AUTO 65 % (41-73); Platelet Count 309 K/mm3 (150-400); RDW Coefficient Variation 15.6 % (11.7-14.2); RDW Standard Deviation 48.2 fL (35.1-46.3); Red Blood Cell Count 4.35 M/mm3 (4.30-5.90); White Blood Cell Count 8.07 K/mm3 (4.00-11.30)
[2022-10-17 13:02] LABS: Albumin, Blood 2.5 g/dL (3.4-5.0); Albumin/Globulin Ratio 0.5 (0.8-1.8); Bilirubin, Total 0.3 mg/dL (0.1-1.0); Bun/Creatinine Ratio 22.2 (12.0-20.0); Calcium, Blood 8.5 mg/dL (8.5-10.1); Creatinine, Blood 0.68 mg/dL (0.60-1.20); Globulin, Blood 4.8 g/dL (2.2-4.0); Potassium, Blood 3.7 mmol/L (3.5-5.5); Total Protein, Blood 7.3 g/dL (6.4-8.2)
[2022-10-17 14:42] VITALS: BP 140/67
[2022-10-17 19:18] VITALS: BP 124/65
[2022-10-18 04:33] VITALS: BP 139/62
--- NOTE | 2022-10-18 04:37 | NUR ---
SHIFT SUMMARY POD4 L ANGELA W/ REVISION. POSTERIOR HIP PRECAUTIONS W/ KNEE IMMOBILIZER IN PLACE FOR REMINDER OF PRECAUTIONS. COMPRESSION TAPE AND MAX INTACT W/ NO VISIBLE DRAINAGE. ANTICOAGS DC'D R/T BLEEDING/DRAINAGE. PT RECEIVES WOUND CARE M/W/F FOR WOUNDS TO BLLE, DRESSINGS INTACT. NO SCD'S OR COMPRESSION STOCKINGS R/T WOUNDS TO LE. PT AMBULATED TO BATHROOM W/ FWW AND STAFF ASSIST 3X THIS SHIFT, TOLERATED WELL. PT REPORTS LIVES ALONE AND AWAITING MEETING W/ SS FOR POSSIBLE STATE ASSIST CAREGIVERS. NO ACUTE CHANGES THIS SHIFT. PT PLANS FOR DISCHARGE MONDAY TO [facility].
[2022-10-18 07:12] VITALS: BP 138/55
--- NOTE | 2022-10-18 11:48 | NUR ---
Pt. is sitting in a recliner with his leg immobilized when he welcomes my visit. Pt. is pleasant. Facilitate a life review. Pt. verbalized some of his earlier maladies as well as the of his longtime SO. Listen with interest and empathy. Pt. displays evidence of engagement and awareness. Considered matters of grace and belief. Pt. verballized his expectation to be discharged to [facility] tomorrow. Prayed with Pt. Pt. vebralized gratitude for the spiritual care visit and welcomed this auto body shop manager to return.
[2022-10-18 12:32] LABS: Albumin, Blood 2.6 g/dL (3.4-5.0); Albumin/Globulin Ratio 0.6 (0.8-1.8); Bilirubin, Total 0.3 mg/dL (0.1-1.0); Calcium, Blood 8.6 mg/dL (8.5-10.1); Creatinine, Blood 0.72 mg/dL (0.60-1.20); Globulin, Blood 4.6 g/dL (2.2-4.0); Potassium, Blood 3.9 mmol/L (3.5-5.5); Total Protein, Blood 7.2 g/dL (6.4-8.2)
[2022-10-18 12:42] LABS: BASOPHILS ABSOLUTE AUTO 0.06 K/mm3 (0.00-0.23); BASOPHILS PERCENT AUTO 1 % (0-2); EOSINOPHILS ABSOLUTE AUTO 0.58 K/mm3 (0.00-0.68); EOSINOPHILS PERCENT AUTO 6 % (0-6); Hematocrit 38.3 % (37.0-53.0); Hemoglobin 12.4 g/dL (13.5-17.5); IMMATURE GRAN ABSOLUTE AUTO 0.04 K/mm3 (0.00-0.10); IMMATURE GRAN PERCENT AUTO 0 % (0-1); LYMPHOCYTES ABSOLUTE AUTO 2.25 K/mm3 (0.84-5.20); LYMPHOCYTES PERCENT AUTO 23 % (21-46); MONOCYTES PERCENT AUTO 5 % (4-13); Mean Corpuscular HGB 27.1 pg (26.0-34.0); Mean Corpuscular HGB Conc 32.4 g/dL (31.5-36.5); Mean Corpuscular Volume 84 fL (80-100); Mean Platelet Volume 8.8 fL (9.1-12.4); NEUTROPHILS ABSOLUTE AUTO 6.22 K/mm3 (1.96-9.15); NEUTROPHILS PERCENT AUTO 65 % (41-73); Platelet Count 300 K/mm3 (150-400); RDW Coefficient Variation 15.4 % (11.7-14.2); RDW Standard Deviation 47.1 fL (35.1-46.3); Red Blood Cell Count 4.57 M/mm3 (4.30-5.90); White Blood Cell Count 9.65 K/mm3 (4.00-11.30)
[2022-10-18 14:58] VITALS: BP 118/64
[2022-10-18 19:51] VITALS: BP 124/65
--- NOTE | 2022-10-18 22:55 | NUR ---
DISORIENTATION PT WALKED OUT TO HALLWAY QUESTIONING WHERE HIS CAT IS. PT REMINDED OF STATUS AND APPEARS AWARE AT THIS TIME. REPORTS WOKE A LITTLE DISORIENTED. ESCORTED PT BACK TO ROOM WHERE HE USED THE BATHROOM AND BACK TO BED.
[2022-10-19 05:42] VITALS: BP 137/56
--- NOTE | 2022-10-19 06:01 | NUR ---
SHIFT SUMMARY L HIP DISLOCATION/ REVISION. GAUZE/ PRESSURE TAPE DRESSING C/D/I, POLAR PACK IN USE AND KNEE IMMOBILIZER IN PLACE FOR HIP PRECAUTION REMINDERS. PT MEDICATED 2X W/ PERCOCET THIS SHIFT. SBA W/ FWW TO BATHROOM SEVERAL TIMES. PT CONTINUED USE OF CPAP DURING SLEEP. WOUND CARE DRESSINGS TO BLLE C/D/I. CONTINUE TO ENCOURAGE PT TO STAND CLOSE TO TOILET TO PREVENT URINATING ON FLOOR/ FEET. NO ACUTE CHANGES THIS SHIFT. PT PLEASANT AND COOPERATIVE. PT PLANS FOR DISCHARGE TODAY TO [facility]. CALL LIGHT W/IN REACH
[2022-10-19 07:36] LABS: BASOPHILS ABSOLUTE AUTO 0.06 K/mm3 (0.00-0.23); BASOPHILS PERCENT AUTO 1 % (0-2); EOSINOPHILS ABSOLUTE AUTO 0.53 K/mm3 (0.00-0.68); EOSINOPHILS PERCENT AUTO 7 % (0-6); Hematocrit 34.9 % (37.0-53.0); Hemoglobin 11.3 g/dL (13.5-17.5); IMMATURE GRAN ABSOLUTE AUTO 0.02 K/mm3 (0.00-0.10); IMMATURE GRAN PERCENT AUTO 0 % (0-1); LYMPHOCYTES ABSOLUTE AUTO 1.81 K/mm3 (0.84-5.20); LYMPHOCYTES PERCENT AUTO 25 % (21-46); MONOCYTES ABSOLUTE AUTO 0.45 K/mm3 (0.16-1.47); MONOCYTES PERCENT AUTO 6 % (4-13); Mean Corpuscular HGB 27.1 pg (26.0-34.0); Mean Corpuscular HGB Conc 32.4 g/dL (31.5-36.5); Mean Corpuscular Volume 84 fL (80-100); Mean Platelet Volume 8.8 fL (9.1-12.4); NEUTROPHILS ABSOLUTE AUTO 4.46 K/mm3 (1.96-9.15); NEUTROPHILS PERCENT AUTO 61 % (41-73); Platelet Count 295 K/mm3 (150-400); RDW Coefficient Variation 15.6 % (11.7-14.2); RDW Standard Deviation 47.2 fL (35.1-46.3); Red Blood Cell Count 4.17 M/mm3 (4.30-5.90); White Blood Cell Count 7.33 K/mm3 (4.00-11.30)
[2022-10-19 07:53] VITALS: BP 121/92
[2022-10-19 11:38] LABS: BASOPHILS ABSOLUTE AUTO 0.04 K/mm3 (0.00-0.23); BASOPHILS PERCENT AUTO 1 % (0-2); EOSINOPHILS PERCENT AUTO 5 % (0-6); Hematocrit 35.8 % (37.0-53.0); Hemoglobin 12.1 g/dL (13.5-17.5); IMMATURE GRAN ABSOLUTE AUTO 0.04 K/mm3 (0.00-0.10); IMMATURE GRAN PERCENT AUTO 1 % (0-1); LYMPHOCYTES ABSOLUTE AUTO 1.66 K/mm3 (0.84-5.20); LYMPHOCYTES PERCENT AUTO 22 % (21-46); MONOCYTES ABSOLUTE AUTO 0.48 K/mm3 (0.16-1.47); MONOCYTES PERCENT AUTO 6 % (4-13); Mean Corpuscular HGB 27.1 pg (26.0-34.0); Mean Corpuscular HGB Conc 33.8 g/dL (31.5-36.5); Mean Corpuscular Volume 80 fL (80-100); NEUTROPHILS ABSOLUTE AUTO 4.99 K/mm3 (1.96-9.15); NEUTROPHILS PERCENT AUTO 66 % (41-73); RDW Coefficient Variation 15.5 % (11.7-14.2); RDW Standard Deviation 44.6 fL (35.1-46.3); Red Blood Cell Count 4.47 M/mm3 (4.30-5.90); White Blood Cell Count 7.61 K/mm3 (4.00-11.30)
[2022-10-19 12:00] LABS: SARS-Cov-2 (COVID-19) PCR, MMC NEGATIVE (NEGATIVE)
[2022-10-19 12:05] LABS: Platelet Count 280 K/mm3 (150-400)
--- NOTE | 2022-10-19 12:19 | NUR ---
GERALDO PT GERALDO IN LOW 40S AFTER WORKING WITH THERAPY. ASYMPTOMATIC. APICAL PULSE DONE AND HAD READING OF 54 WHICH CORRELTED WITH NIBP. CALLED AND DISCUSSED WITH DR COY. ORDERS OBTAINED TO PLACE ON TELE TO MONITOR. PT SITTING UP IN CHAIR. CALL LIGHT IN REACH.
--- NOTE | 2022-10-19 12:57 | NUR ---
TELE PER ANTONY; SR w/PACS AT 69
[2022-10-19 13:08] LABS: Albumin, Blood 2.5 g/dL (3.4-5.0); Albumin/Globulin Ratio 0.6 (0.8-1.8); Bilirubin, Total 0.3 mg/dL (0.1-1.0); Calcium, Blood 8.6 mg/dL (8.5-10.1); Creatinine, Blood 0.77 mg/dL (0.60-1.20); Globulin, Blood 4.4 g/dL (2.2-4.0); Total Protein, Blood 6.9 g/dL (6.4-8.2)
--- NOTE | 2022-10-19 13:13 | NUR ---
ANTHONY/WOUND CARE IN TO SEE PT, CHANGES BLE DRESSINGS.
[2022-10-19 15:01] VITALS: BP 123/56
--- NOTE | 2022-10-19 16:45 | NUR ---
REPORT GIVEN TO CLARA AT . PT AWAITING TRANSPORT TO FACILITY. SITTING UP IN CHAIR. IMMOBILIZER IN PLACE. CALL LIGHT IN REACH.
--- NOTE | 2022-10-19 17:07 | NUR ---
PT DISCHARGED TO SNF PT LEFT UNIT IN WC TRANSPORT WITH POSSESSIONS. TRANSPORTER GIVEN DC PACKET.
== END 2022-10-19 17:03 | DRG 467 ==
LOC: ER 09:13 → ORSCMMR 09:14 → SURS 09:14 → ORSCMMR 12:22 → SURS 14:00 → ORSCMMR 10-16 09:26 → SURS 10-16 09:26
PROVIDERS: Family Medicine; Internal Medicine Endocrinology, Diabetes & Metabolism; Orthopaedic Surgery; Physician Assistant; ADMIT Family Medicine
PROC: 0SPS0JZ Removal of Synthetic Substitute from Left Hip Joint, Femoral Surface, Open Approach (ICD-10-PCS; 2022-10-14)
PROC: 0SRS03Z Replacement of Left Hip Joint, Femoral Surface with Ceramic Synthetic Substitute, Open Approach (ICD-10-PCS; principal; 2022-10-14 12:30)
DX: T84.021A Dislocation of internal left hip prosthesis, initial encounter (principal); Z68.41 Body mass index [BMI] 40.0-44.9, adult; I50.9 Heart failure, unspecified; F41.9 Anxiety disorder, unspecified; I11.0 Hypertensive heart disease with heart failure; E78.5 Hyperlipidemia, unspecified; Z20.822 Contact with and (suspected) exposure to COVID-19; E87.6 Hypokalemia; E11.42 Type 2 diabetes mellitus with diabetic polyneuropathy; M19.90 Unspecified osteoarthritis, unspecified site; G47.33 Obstructive sleep apnea (adult) (pediatric); G89.29 Other chronic pain; F90.9 Attention-deficit hyperactivity disorder, unspecified type; F32.9 Major depressive disorder, single episode, unspecified; K21.9 Gastro-esophageal reflux disease without esophagitis; E66.9 Obesity, unspecified; I70.90 Unspecified atherosclerosis; Z96.653 Presence of artificial knee joint, bilateral; Z96.642 Presence of left artificial hip joint; W01.0XXA Fall on same level from slipping, tripping and stumbling without subsequent striking against object, initial encounter; Y93.01 Activity, walking, marching and hiking; Y92.009 Unspecified place in unspecified non-institutional (private) residence as the place of occurrence of the external cause; Z98.890 Other specified postprocedural states; Z88.0 Allergy status to penicillin; Z91.040 Latex allergy status; Z79.899 Other long term (current) drug therapy; Z79.2 Long term (current) use of antibiotics
CPT/HCPCS: 27266; 36415; 72170; 73502; 76000; 80048; 80053; 80202; 81001; 82565; 82947; 83735; 85025; 85651; 86140; 87070; 87075; 87086; 87205; 94660; 94762; 97110; 97116; 97161; 97165; 97530; 97535; 99152; 99285-25; A9270; C1713; C1776; J0171; J0690; J0735; J1100; J1170; J1885; J2371; J2405; J2704; J2795; J3010; J3260; J3370; J3480; J7030; J7120; U0002

== ENCOUNTER 2022-12-26 16:10 | Emergency (ER) | payer OTHER ==
[~2022-12-26] VITALS: Ht 180.3 cm; Wt 122.5 kg
[2022-12-26 16:58] LABS: BASOPHILS ABSOLUTE AUTO 0.06 K/mm3 (0.00-0.23); BASOPHILS PERCENT AUTO 1 % (0-2); EOSINOPHILS PERCENT AUTO 2 % (0-6); Hematocrit 36.2 % (37.0-53.0); Hemoglobin 11.3 g/dL (13.5-17.5); IMMATURE GRAN ABSOLUTE AUTO 0.03 K/mm3 (0.00-0.10); IMMATURE GRAN PERCENT AUTO 0 % (0-1); LYMPHOCYTES ABSOLUTE AUTO 2.27 K/mm3 (0.84-5.20); LYMPHOCYTES PERCENT AUTO 27 % (21-46); MONOCYTES ABSOLUTE AUTO 0.74 K/mm3 (0.16-1.47); MONOCYTES PERCENT AUTO 9 % (4-13); Mean Corpuscular HGB 26.5 pg (26.0-34.0); Mean Corpuscular HGB Conc 31.2 g/dL (31.5-36.5); Mean Corpuscular Volume 85 fL (80-100); Mean Platelet Volume 9.7 fL (9.1-12.4); NEUTROPHILS ABSOLUTE AUTO 5.02 K/mm3 (1.96-9.15); NEUTROPHILS PERCENT AUTO 60 % (41-73); Platelet Count 237 K/mm3 (150-400); Red Blood Cell Count 4.27 M/mm3 (4.30-5.90); White Blood Cell Count 8.32 K/mm3 (4.00-11.30)
[2022-12-26 17:33] LABS: Source, Urine Straight Cath
[2022-12-26 17:47] VITALS: BP 128/72
[2022-12-26 18:07] LABS: Albumin, Blood 2.6 g/dL (3.4-5.0); Albumin/Globulin Ratio 0.5 (0.8-1.8); Bilirubin, Total 0.9 mg/dL (0.1-1.0); Bun/Creatinine Ratio 25.5 (12.0-20.0); Creatinine, Blood 0.82 mg/dL (0.60-1.20); Globulin, Blood 5.4 g/dL (2.2-4.0); Potassium, Blood 3.3 mmol/L (3.5-5.5); Thyroid Stimulating Hormone 1.22 uIU/mL (0.360-4.800)
[2022-12-26 18:32] LABS: Appearance, Urine Clear (Clear); Blood, Urine Neg (Neg); Glucose Qualitative, Urine Neg (Neg); Ketones, Urine Neg (Neg); Leukocyte Esterase, Urine 1+ (Neg); Nitrite, Urine Neg (Neg); Protein, Urine 1+ (Neg); Urobilinogen, Urine 1+ (Normal)
[2022-12-26 18:36] LABS: Influenza A, PCR NEGATIVE (NEGATIVE); Influenza B, PCR NEGATIVE (NEGATIVE); Resp Syncytial Virus, PCR NEGATIVE (NEGATIVE); SARS-Cov-2 (COVID-19) PCR, MMC NEGATIVE (NEGATIVE)
[2022-12-26 19:26] LABS: Bilirubin, Urine 1+ (Neg); Color, Urine Amber (P-Yellow)
[2022-12-26 19:28] LABS: Red Blood Cells, Urine 0-2 /hpf (0-2)
[2022-12-26 19:29] LABS: Amorphous Light (0-Heavy); Bacteria Few /hpf; Mucus Mod (0-Heavy); Squamous Epithelial Cells Rare /hpf (Few)
== END 2022-12-26 20:15 | disposition home or self-care (01) ==
LOC: ER 16:10
PROVIDERS: Emergency Medicine
DX: R53.1 Weakness (principal); I11.0 Hypertensive heart disease with heart failure; I50.30 Unspecified diastolic (congestive) heart failure; E11.9 Type 2 diabetes mellitus without complications; F32.A Depression, unspecified; F41.9 Anxiety disorder, unspecified; Z88.0 Allergy status to penicillin; Z91.040 Latex allergy status; Z79.899 Other long term (current) drug therapy; Z20.822 Contact with and (suspected) exposure to COVID-19
CPT/HCPCS: 0241U; 51701; 51798; 71045; 80053; 81001; 83880; 84443; 84484; 85025; 93005; 93010; 96374-59; 99285-25; J2405

== ENCOUNTER 2022-12-30 15:40 | Emergency (ER) | payer OTHER ==
[~2022-12-30] VITALS: Ht 177.8 cm; Wt 117.9 kg
[2022-12-30 15:49] VITALS: BP 146/79
[2022-12-30] MEDS ORDERED: CEPH500 PO (16:21)
== END 2022-12-30 16:51 | disposition home or self-care (01) ==
LOC: ER 15:40
DX: S91.342A Puncture wound with foreign body, left foot, initial encounter (principal); W45.0XXA Nail entering through skin, initial encounter; I11.0 Hypertensive heart disease with heart failure; I50.30 Unspecified diastolic (congestive) heart failure; E11.9 Type 2 diabetes mellitus without complications; F41.9 Anxiety disorder, unspecified; F32.A Depression, unspecified; Z23 Encounter for immunization; Z88.0 Allergy status to penicillin; Z91.040 Latex allergy status; Z79.899 Other long term (current) drug therapy
CPT/HCPCS: 73650; 90471; 90715; 99283-25; A9270

== ENCOUNTER 2023-02-02 10:18 | Emergency (ER) | payer OTHER ==
[~2023-02-02] VITALS: Ht 182.9 cm; Wt 122.5 kg
[2023-02-02 13:55] VITALS: BP 168/71
== END 2023-02-02 13:52 | disposition home or self-care (01) ==
LOC: ER 10:18
DX: T84.021A Dislocation of internal left hip prosthesis, initial encounter (principal); Y79.2 Prosthetic and other implants, materials and accessory orthopedic devices associated with adverse incidents; I11.0 Hypertensive heart disease with heart failure; I50.30 Unspecified diastolic (congestive) heart failure; I27.20 Pulmonary hypertension, unspecified; G47.30 Sleep apnea, unspecified; E11.9 Type 2 diabetes mellitus without complications; E78.5 Hyperlipidemia, unspecified; Z79.01 Long term (current) use of anticoagulants; Z79.899 Other long term (current) drug therapy; Z88.0 Allergy status to penicillin; Z91.040 Latex allergy status; X50.9XXA Other and unspecified overexertion or strenuous movements or postures, initial encounter
CPT/HCPCS: 27265; 73501; 73502; 96374; 99152; 99284-25; J1170; J2704; J7030

== ENCOUNTER 2023-12-28 21:16 | Emergency (ER) | payer OTHER ==
[~2023-12-28] VITALS: Ht 180.3 cm; Wt 127.0 kg
[2023-12-28 22:25] LABS: BASOPHILS ABSOLUTE AUTO 0.04 K/mm3 (0.00-0.23); BASOPHILS PERCENT AUTO 0 % (0-2); EOSINOPHILS ABSOLUTE AUTO 0.08 K/mm3 (0.00-0.68); EOSINOPHILS PERCENT AUTO 1 % (0-6); Hematocrit 45.3 % (37.0-53.0); Hemoglobin 15.2 g/dL (13.5-17.5); IMMATURE GRAN ABSOLUTE AUTO 0.07 K/mm3 (0.00-0.10); IMMATURE GRAN PERCENT AUTO 1 % (0-1); LYMPHOCYTES ABSOLUTE AUTO 3.38 K/mm3 (0.84-5.20); LYMPHOCYTES PERCENT AUTO 32 % (21-46); MONOCYTES ABSOLUTE AUTO 0.88 K/mm3 (0.16-1.47); MONOCYTES PERCENT AUTO 8 % (4-13); Mean Corpuscular HGB 27.1 pg (26.0-34.0); Mean Corpuscular HGB Conc 33.6 g/dL (31.5-36.5); Mean Corpuscular Volume 81 fL (80-100); Mean Platelet Volume 9.6 fL (9.1-12.4); NEUTROPHILS ABSOLUTE AUTO 6.28 K/mm3 (1.96-9.15); NEUTROPHILS PERCENT AUTO 59 % (41-73); Platelet Count 327 K/mm3 (150-400); RDW Coefficient Variation 14.7 % (11.7-14.2); RDW Standard Deviation 42.5 fL (35.1-46.3); White Blood Cell Count 10.73 K/mm3 (4.00-11.30)
[2023-12-28 22:40] LABS: Albumin, Blood 3.6 g/dL (3.4-5.0); Albumin/Globulin Ratio 0.8 (0.8-1.8); Bilirubin, Total 0.9 mg/dL (0.1-1.0); Bun/Creatinine Ratio 25.7 (12.0-20.0); Calcium, Blood 9.6 mg/dL (8.5-10.1); Creatinine, Blood 1.05 mg/dL (0.60-1.20); Globulin, Blood 4.7 g/dL (2.2-4.0); Potassium, Blood 3.1 mmol/L (3.5-5.5); Total Protein, Blood 8.3 g/dL (6.4-8.2)
[2023-12-28 23:52] LABS: Magnesium, Blood 1.4 mg/dL (1.6-2.4)
[2023-12-29 01:00] VITALS: BP 125/68
[2023-12-29] MEDS ORDERED: Magnesium Sulf 2 GM/Water 50ML 50 ML IV ONE (01:35)
[2023-12-29 02:37] LABS: C DIFFICILE DNA NEGATIVE (Negative)
[2023-12-29] MEDS ORDERED: Loperamide2 MG PO (02:49)
[2023-12-29] MEDS ORDERED: DICY20 PO (02:49)
[2023-12-29] MEDS ORDERED: Dicyclomine HCl 10 MG/ML 2ML Amp IM ONE (02:50)
[2023-12-29] MEDS ORDERED: Loperamide HCl 2 MG Cap PO ONE (02:50)
[2023-12-29] MEDS ORDERED: Potassium Chloride 20 MEQ TabCR PO ONE (02:50)
== END 2023-12-29 03:52 | disposition home or self-care (01) ==
LOC: ER 21:16
PROVIDERS: Emergency Medicine
DX: E87.6 Hypokalemia (principal); E83.42 Hypomagnesemia; R19.7 Diarrhea, unspecified; I11.0 Hypertensive heart disease with heart failure; I50.9 Heart failure, unspecified; E11.9 Type 2 diabetes mellitus without complications; G47.30 Sleep apnea, unspecified; Z79.899 Other long term (current) drug therapy; Z88.0 Allergy status to penicillin; Z91.040 Latex allergy status
CPT/HCPCS: 80053; 83735; 85025; 87493; 96365; 96372-59; 99284-25; A9270; J0500; J3475

== ENCOUNTER → 2024-07-02 | Outpatient (CLI) | payer OTHER ==
[~2024-07-02] MED LIST changes: +DICY20 PO; +Loperamide2 MG PO
== END | disposition home or self-care (01) ==
LOC: LAB 18:19 → LAB SHORT 18:19
DX: N39.0 Urinary tract infection, site not specified (principal)
CPT/HCPCS: 87086

== ENCOUNTER 2024-09-30 08:04 | Inpatient (IN) | payer OTHER ==
[~2024-09-30] VITALS: Ht 182.9 cm; Wt 128.3 kg
[2024-09-30] MEDS ORDERED: NS 1,000 ML IV SCH ×3 (08:35→13:55)
[2024-09-30 09:03] LABS: BASOPHILS ABSOLUTE AUTO 0.04 K/mm3 (0.00-0.23); BASOPHILS PERCENT AUTO 0 % (0-2); EOSINOPHILS ABSOLUTE AUTO 0.03 K/mm3 (0.00-0.68); EOSINOPHILS PERCENT AUTO 0 % (0-6); Hematocrit 32.7 % (37.0-53.0); Hemoglobin 11.2 g/dL (13.5-17.5); IMMATURE GRAN ABSOLUTE AUTO 0.07 K/mm3 (0.00-0.10); IMMATURE GRAN PERCENT AUTO 1 % (0-1); LYMPHOCYTES ABSOLUTE AUTO 2.07 K/mm3 (0.84-5.20); LYMPHOCYTES PERCENT AUTO 23 % (21-46); MONOCYTES ABSOLUTE AUTO 0.91 K/mm3 (0.16-1.47); MONOCYTES PERCENT AUTO 10 % (4-13); Mean Corpuscular HGB Conc 34.3 g/dL (31.5-36.5); Mean Corpuscular Volume 83 fL (80-100); NEUTROPHILS ABSOLUTE AUTO 5.89 K/mm3 (1.96-9.15); NEUTROPHILS PERCENT AUTO 65 % (41-73); NRBC ABSOLUTE 0.00 K/mm3 (0.00-0.02); NRBC Auto 0.0 /100 WBC (0.0-0.2); Platelet Count 272 K/mm3 (150-400); RDW Coefficient Variation 15.4 % (11.7-14.2); RDW Standard Deviation 46.6 fL (35.1-46.3)
[2024-09-30] MEDS ORDERED: BUME1 PO (09:10)
[2024-09-30] MEDS ORDERED: FLUC200 PO (09:10)
[2024-09-30] MEDS ORDERED: TAMS.4ER PO (09:10)
[2024-09-30] MEDS ORDERED: MELO7.5 PO (09:11)
[2024-09-30 09:14] LABS: Alanine Aminotransfer (ALT/SGP 18.0 U/L (12-78); Albumin, Blood 2.1 g/dL (3.4-5.0); Albumin/Globulin Ratio 0.4 (0.8-1.8); Anion Gap 13.0 mmol/L (3-11); Aspartate Aminotrans (AST/SGOT 21.0 U/L (12-37); Bilirubin, Total 1.6 mg/dL (0.1-1.0); Blood Urea Nitrogen 29.0 mg/dL (8-24); CO2, Blood 28.0 mmol/L (21-32); Calcium, Blood 6.6 mg/dL (8.5-10.1); Chloride, Blood 93.0 mmol/L (98-108); Creatinine, Blood 0.94 mg/dL (0.60-1.20); Globulin, Blood 4.7 g/dL (2.2-4.0); Glucose, Blood 107.0 mg/dL (70-99); Potassium, Blood 3.8 mmol/L (3.5-5.5); Sodium, Blood 130.0 mmol/L (136-145); Total Protein, Blood 6.8 g/dL (6.4-8.2)
[2024-09-30] MEDS ORDERED: Magnesium Sulf 2 GM/Water 50ML 50 ML IV ONE ×2 (09:20→16:40)
[2024-09-30] MEDS ORDERED: CARV25 PO (09:56)
[2024-09-30] MEDS ORDERED: LISI20 PO (09:56)
[2024-09-30] MEDS ORDERED: AMLO5 PO (09:56)
[2024-09-30] MEDS ORDERED: OMEP20ER PO (09:56)
[2024-09-30] MEDS ORDERED: Calcium Carbon500 MG PO (09:56)
[2024-09-30] MEDS ORDERED: ACET325 PO (09:57)
[2024-09-30] MEDS ORDERED: DIVA250ER PO (09:57)
[2024-09-30] MEDS ORDERED: BISA5EC (09:57)
[2024-09-30] MEDS ORDERED: DIVA500ER PO (09:57)
[2024-09-30] MEDS ORDERED: LOPE2C PO (10:08)
[2024-09-30] MEDS ORDERED: POTCHL20ER PO (10:11)
[2024-09-30] MEDS ORDERED: TIZA4 PO (10:11)
[2024-09-30] MEDS ORDERED: KETO15TC TOP (10:12)
[2024-09-30] MEDS ORDERED: ARTHRITIS PAIN150 GM TOP (10:12)
[2024-09-30] MEDS ORDERED: DOCU100 PO (10:12)
[2024-09-30] MEDS ORDERED: DESV50 PO (10:12)
[2024-09-30] MEDS ORDERED: Artificial Tear15 ML BOTHEYES (10:12)
[2024-09-30] MEDS ORDERED: MEMANTINE H2 MG/1 ML (10:12)
[2024-09-30] MEDS ORDERED: ALKINDI SPRINK0.5 MG (10:13)
[2024-09-30] MEDS ORDERED: METAMUCIL174 GM PO (10:13)
[2024-09-30] MEDS ORDERED: BETA.05TCA TOP (10:13)
[2024-09-30] MEDS ORDERED: DOXY100 PO (10:13)
[2024-09-30] MEDS ORDERED: TRAM50 PO (10:14)
[2024-09-30 10:56] LABS: Source, Urine Clean Catch
[2024-09-30 11:14] LABS: Color, Urine Amber (P-Yellow); Glucose Qualitative, Urine Neg (Neg); Ketones, Urine Neg (Neg); Leukocyte Esterase, Urine 1+ (Neg); Protein, Urine 2+ (Neg); Specific Gravity, Urine 1.015 (1.003-1.022); Urobilinogen, Urine 2+ (Normal)
[2024-09-30 11:32] LABS: Bilirubin, Urine 1+ (Neg)
[2024-09-30 11:33] LABS: Red Blood Cells, Urine 0-2 /hpf (0-2)
[2024-09-30 13:40] VITALS: BP 108/57
[2024-09-30] MEDS ORDERED: CefTRIAXone Sodium 1,000 MG in NS 100 ML IV SCH (14:00)
[2024-09-30] MEDS ORDERED: BISA10S PR (15:44)
[2024-09-30] MEDS ORDERED: Milk of Magnesia PO (15:46)
[2024-09-30] MEDS ORDERED: Hydrocortiso453.6 G1 TOP (15:47)
[2024-09-30] MEDS ORDERED: Insulin Regular 100 UNIT/ML 10ML Vial SC SCH (16:30)
[2024-09-30] MEDS ORDERED: CALCIUM GLUC IN NACL, ISO-OSM 50 ML IV ONE (16:40)
[2024-09-30 16:58] VITALS: BP 101/53
--- NOTE | 2024-09-30 19:25 | NUR ---
ADMIT/SHIFT SUMMARY: PT IS A NEW ADMIT, ARRIVING F/ER AT APPROX 1335. PT IS A&Ox4, ANSWERS QUESTIONS APPROPRIATELY, ABLE TO MAKE NEEDS KNOWN. PT HAS BEEN 1-2 ASSIST W/FWW TO BS. PT DENIES SOB, O2 SATS >93% ON RA. PT DENIES CP, SR ON MONITOR, RATE 70s. INDWELLING DOUGLASS CATHETER PLACED THIS SHIFT FOR RETENTION, DRAINING TODD/ORANGE COLORED URINE TO GRAVITY. SURGICAL CONSULTATION CALLED, SURE PREP INITIATED PER ORDERS, PT TO BE NPO TOMORROW AM AT [address] KELSEY. MAGNESIUM AND CALCIUM HAVE BEEN REPLETED THIS SHIFT. REPORT GIVEN TO NADEGE LIVINGSTON TO ASSUME CARE OF PT.
[2024-09-30 20:22] VITALS: BP 94/55
[2024-09-30] MEDS ORDERED: Divalproex Sodium 250 MG TABCR PO SCH (21:00)
[2024-09-30] MEDS ORDERED: Lactobacil 2-S.Thermo-Bifido 1 1 Cap PO SCH (21:00)
[2024-09-30] MEDS ORDERED: Divalproex Sodium 500 MG TABCR PO SCH (21:00)
[2024-09-30 23:47] VITALS: BP 117/54
[2024-10-01 03:43] VITALS: BP 117/58
[2024-10-01 03:54] LABS: BASOPHILS ABSOLUTE AUTO 0.02 K/mm3 (0.00-0.23); BASOPHILS PERCENT AUTO 0 % (0-2); EOSINOPHILS ABSOLUTE AUTO 0.02 K/mm3 (0.00-0.68); EOSINOPHILS PERCENT AUTO 0 % (0-6); Hematocrit 32.0 % (37.0-53.0); Hemoglobin 11.1 g/dL (13.5-17.5); IMMATURE GRAN ABSOLUTE AUTO 0.03 K/mm3 (0.00-0.10); IMMATURE GRAN PERCENT AUTO 0 % (0-1); LYMPHOCYTES ABSOLUTE AUTO 1.35 K/mm3 (0.84-5.20); LYMPHOCYTES PERCENT AUTO 20 % (21-46); MONOCYTES ABSOLUTE AUTO 0.71 K/mm3 (0.16-1.47); MONOCYTES PERCENT AUTO 11 % (4-13); Mean Corpuscular HGB Conc 34.7 g/dL (31.5-36.5); Mean Corpuscular Volume 81 fL (80-100); NEUTROPHILS ABSOLUTE AUTO 4.61 K/mm3 (1.96-9.15); NEUTROPHILS PERCENT AUTO 69 % (41-73); NRBC ABSOLUTE 0.00 K/mm3 (0.00-0.02); NRBC Auto 0.0 /100 WBC (0.0-0.2); Platelet Count 264 K/mm3 (150-400); RDW Coefficient Variation 15.3 % (11.7-14.2); RDW Standard Deviation 44.3 fL (35.1-46.3)
[2024-10-01 04:23] LABS: Anion Gap 12.0 mmol/L (3-11); Blood Urea Nitrogen 22.0 mg/dL (8-24); CO2, Blood 29.0 mmol/L (21-32); Calcium, Blood 7.1 mg/dL (8.5-10.1); Chloride, Blood 94.0 mmol/L (98-108); Creatinine, Blood 0.69 mg/dL (0.60-1.20); Glucose, Blood 111.0 mg/dL (70-99); Magnesium, Blood 1.4 mg/dL (1.6-2.4); Potassium, Blood 3.3 mmol/L (3.5-5.5); Sodium, Blood 132.0 mmol/L (136-145)
--- NOTE | 2024-10-01 06:31 | NUR ---
NOC SHIFT SUMMARY PT IS A+O X4 ABLE TO MAKE NEEDS KNOWN, DID HAVE A FEW EPISODES OFF CALLING OUT AND NOT USING HIS CALLL LIGHT. PT DID NOT HOWEVER ATTEMPT TO GET UP W/O ASSISTANCE. PT IS A 1-2 PERSON TRANSFER TO THE BSC W/ FWW AND GB. SECOND HALF OF SURPREP GIVEN AT 0600. PATIENT GOT UP AND DOWN TO THE BSC SEVERAL TIMES BEFORE HE WAS ABLE TO HAVE A BM YESTERDAY. TWO UNMEASURED LARGE BM'S D/T HIS URGENCY AND MOST OF IT ENDING UP ON THE FLOOR. PT WAS CLEANED UP AND LIEN WAS CHANGED. PT IS EXTERMLY "ANNOYED" THAT HE HAS TO DRINK THE OTHER PORTION OF THE PREP, BUT IS STILL DRINKING IT. TELE IN PLACE, DENIES CHEST PAIN OR PRESSURE. RA SATTING 90% AND ABOVE. HE DOES ENDOURSE BACK PAIN THAT IS CHRONIC. BED IN LOWEST POSTION, CALL LIGHT IN REACH.
[2024-10-01 07:47] VITALS: BP 107/65
[2024-10-01] MEDS ORDERED: Enoxaparin 40 MG/0.4 ML SYR SC SCH ×2 (09:00)
[2024-10-01] MEDS ORDERED: Magnesium Sulf 2 GM/Water 50ML 50 ML IV ONE (09:30)
[2024-10-01 09:39] VITALS: BP 114/49
[2024-10-01 11:46] VITALS: BP 98/59
[2024-10-01] MEDS ORDERED: MOMETASONE 0.1% TOP (13:33)
[2024-10-01 15:16] VITALS: BP 123/60
--- NOTE | 2024-10-01 15:53 | NUR ---
SHIFT SUMMARY/TRANSFER: PT HAS BEEN ALERT, TWICE THIS SHIFT C/O FEELING FUZZY HEADED AND UNSURE OF WHAT IS GOING ON BUT THEN HAS BEEN ABLE TO ANSWER ORIENTATION QUESTIONS, OTHERWISE PT HAS BEEN Ox4. MAGNESIUM AND POTASSIUM SUPPLEMENTED THIS SHIFT. PT GENERALLY WEAK, BUT ASSISTS W/TURNS. PT DENIES SOB OR CP, O2 SATS >93% ON RA, SR ON MONITOR W/RATE MOSTLY 70s. SURE PREP ADMINISTERED PER ORDERS, PT's STOOL CONTINUES TO BE MURKY YELLOW AND DIFFICULT TO SEE THROUGH, DR KELSEY NOTIFIED W/PLANS TO ADMINISTER ADDITIONAL PREP W/PROCEDURE BEING POSTPONED UNTIL TOMORROW (10/02). REDNESS TO COCCYX, PT REPOSITIONED FOR PRESSURE DISTRIBUTION, PT TOLERATING WELL. IV FLUIDS INFUSING PER ORDERS. PT ADMISSION STATUS CHANGED TO MEDICAL, NEW ROOM ASSIGNMENT RECEIVED, PT WILL BE TRANSFERED AFTER REPORT GIVEN.
--- NOTE | 2024-10-01 17:05 | NUR ---
TRANSFER: PT RECEIVES ROOM ASSIGNMENT IN MEDICAL DEPT, REPORT GIVEN TO NADEGE PATHAK. PT TRANSFERED W/OUT INCIDENT.
--- NOTE | 2024-10-01 17:37 | NUR ---
PATIENT TRANSFERRED FROM PCU 18 TO ROOM 357. REPORT RECEIVED FROM NADEGE FLORES. PATIENT ORIENTED TO ROOM AND USE OF CALL LIGHT. 2 RN SKIN CHECK COMPLETED WITH NADEGE CRANE. PATIENT HAS REDNESS TO BUTTOCKS FROM FREQUENT DIARRHEA AND SOME DARK DISCOLORED SKIN TO KNEES AND LOWER LEGS. PATIENT A/OX3, CONFUSED ABOUT SITUTATION, REORIENTED EASILY. BED ALARM SET FOR SAFETY AND BED PLACED IN LOWEST POSITION. PATIENT DENIES ANY NEEDS AT THIS TIME.
[2024-10-01 19:30] VITALS: BP 126/56
--- NOTE | 2024-10-01 23:15 | NUR ---
ASSUMED CARE OF PT AT 2300 AND THIS RN AGREES TO CHEYANNE'S NOCTE SHIFT ASSESSMENT FINDINGS. PT IS RESTING COMFORTABLY W/O S/S DISTRESS AND DENIES PAIN AND COMPLAINTS. HE REMAINS ON A CLEAR LIQUID DIET PENDING PROBABLE SCOPE IN AM W/PLAN TO COMMENCE SUPREP AT 0600 PER ORDERS. LIQUID BROWN STOOL PERSISTS W/SMALL AMT OF CHUNKS STILL OBSERVED, ATTENDS CHANGED PRN.
[2024-10-02] VITALS (28 sets, daily range): BP systolic 70–132; BP diastolic 38–87
[2024-10-02 05:06] LABS: BASOPHILS ABSOLUTE AUTO 0.01 K/mm3 (0.00-0.23); BASOPHILS PERCENT AUTO 0 % (0-2); Hematocrit 35.2 % (37.0-53.0); Hemoglobin 12.3 g/dL (13.5-17.5); LYMPHOCYTES ABSOLUTE AUTO 1.08 K/mm3 (0.84-5.20); LYMPHOCYTES PERCENT AUTO 23 % (21-46); MONOCYTES ABSOLUTE AUTO 0.29 K/mm3 (0.16-1.47); MONOCYTES PERCENT AUTO 6 % (4-13); Mean Corpuscular HGB Conc 34.9 g/dL (31.5-36.5); Mean Corpuscular Volume 82 fL (80-100); NRBC ABSOLUTE 0.00 K/mm3 (0.00-0.02); NRBC Auto 0.0 /100 WBC (0.0-0.2); Platelet Count 302 K/mm3 (150-400); RDW Coefficient Variation 15.2 % (11.7-14.2); RDW Standard Deviation 45.7 fL (35.1-46.3)
[2024-10-02 05:08] LABS: EOSINOPHILS ABSOLUTE AUTO 0.01 K/mm3 (0.00-0.68); EOSINOPHILS PERCENT AUTO 0 % (0-6); IMMATURE GRAN ABSOLUTE AUTO 0.06 K/mm3 (0.00-0.10); IMMATURE GRAN PERCENT AUTO 1 % (0-1); NEUTROPHILS ABSOLUTE AUTO 3.34 K/mm3 (1.96-9.15); NEUTROPHILS PERCENT AUTO 70 % (41-73)
[2024-10-02 05:37] LABS: Anion Gap 11.0 mmol/L (3-11); Blood Urea Nitrogen 11.0 mg/dL (8-24); CO2, Blood 26.0 mmol/L (21-32); Calcium, Blood 7.0 mg/dL (8.5-10.1); Chloride, Blood 97.0 mmol/L (98-108); Creatinine, Blood 0.58 mg/dL (0.60-1.20); Glucose, Blood 88.0 mg/dL (70-99); Magnesium, Blood 1.8 mg/dL (1.6-2.4); Potassium, Blood 3.2 mmol/L (3.5-5.5); Sodium, Blood 131.0 mmol/L (136-145)
--- NOTE | 2024-10-02 06:30 | NUR ---
SUMMARY: PT A/OX2-3 BUT IS FORGETFULL TO SITUATION AND PULLS/REMOVES LINES. TELE AND CONT BIOX REPLACED T/O NOCTE AND BED ALARM ON FOR POSSIBLE IMPULSVITITY. HE REMAINS ON CLEAR LIQUID DIET W/SUPREP COMMENCED AT O600 FOR SCOPE PLANNED AT 1000. PT HAD X1 BM PRIOR THAT WAS LIQUID BROWN W/A SMALL AMT OF CHUNKS STILL OBSERVED. REDNESS NOTED TO BUTTOCKS FROM FREQ DIARRHEA AND LEO CARE COMPLETED W/CREAM APPLIED PRN. PT ASSISTED W/REPOSITOINING PRN. HE'S NSR/S.TACH ON TELE AT 60'S-100'S BPM. DOUGLASS IS PATENT/DRAINING W/DARK TODD BLOOD TINGED URINE OBSERVED. NO ACUTE CHANGES, VSS/AFEBRILE. WILL REPORT TO DAY RN.
--- NOTE | 2024-10-02 09:10 | NUR ---
BOWEL PRE PT HAD A LARGE LIQUID, THICK BROWN WITH CHUNKS BOWEL MOVEMENT. DR LIANG CONTACTED. NO ORDERS. CARE ONGOING./
[2024-10-02] MEDS ORDERED: NS 1,000 ML IV SCH (12:15)
--- NOTE | 2024-10-02 12:16 | NUR ---
LOW BP DR AMARO CALLED. ORDER RECEIVED. CARE ONGOING.
--- NOTE | 2024-10-02 12:42 | NUR ---
BLOD PRESSURE BOLUS STARTED PER ORDER. HYPOTENSION REPORTED TO DAY SURGERY. CARE ONGOING.
--- NOTE | 2024-10-02 13:47 | NUR ---
DAY SURGERY DAY SURGERY NOTIFIED OF CURRENT BP 86/53. CARE ONGOING
--- NOTE | 2024-10-02 13:51 | NUR ---
LOW BP CALLED DR AMARO ABOUT BP 86/53. ORDERS RECEIVED. CARE ONGOING.
--- NOTE | 2024-10-02 17:11 | NUR ---
DR PREM HERNANDEZ LITER OF FLUID BOLUS COMPLETED. BP 68/40 MANULLY RIGHT UE AND 74/40 MANULA LEFT UE. NEW ORDER FOR LITER #3 GIVEN. RUNNING 999/HR. CARE DEMAR Browne
--- NOTE | 2024-10-02 18:08 | NUR ---
SUSTAINED HYPOTENSION INFORMED DR AMARO PT BP 78/40. NO IMPROVEMENT WITH THIRD LITER OF NS. SHE REQUESTED ICU WITH LEVAPHED. NURSING NETWORK CONTROL SUPERVISOR CONTACTED. TALKED WITH PT. HE IS AGREEABLE TO TRANSFER. CARE ONGOING.
--- NOTE | 2024-10-02 18:48 | NUR ---
ICU 15 PT TRANSFERED TO ICU 15 VIA BED. REPORT GIVEN TO RN. CARE ONGOING.
--- NOTE | 2024-10-02 19:15 | NUR ---
PATIENT ARRIVED IN ICU AT 1837. HYPOTENSTION, STAFF PICKING UP LEVO FROM THE PHARMACY PT DENIES ANY CHEST PAIN/PRESSURE OR LIGHTHEADED/DIZZINESS. HE IS ALERT AND ORIENTED X 3-4 WITH SOME CONFUSION REGARDING TIME LINE OF EVENTS OF THIS HOSPITALIZATION BUT ANSWERS QUESTIONS APPROPRIATELY. SMALL CLEAR/YELLOW BM AT START OF SHIFT. STATES HE IS HUNGRY. REPORT GIVEN TO ON COMING RN.
[2024-10-02] MEDS ORDERED: DIVA250ER PO (19:58)
[2024-10-02] MEDS ORDERED: Vasopressin 20 UNITS in NS 100 ML IV SCH (20:55)
[2024-10-02 22:34] LABS: Hematocrit 31.8 % (37.0-53.0); Hemoglobin 10.8 g/dL (13.5-17.5); Mean Corpuscular HGB Conc 34.0 g/dL (31.5-36.5); Mean Corpuscular Volume 86 fL (80-100); NRBC ABSOLUTE 0.00 K/mm3 (0.00-0.02); NRBC Auto 0.0 /100 WBC (0.0-0.2); Platelet Count 290 K/mm3 (150-400); RDW Coefficient Variation 15.8 % (11.7-14.2); RDW Standard Deviation 48.9 fL (35.1-46.3)
--- NOTE | 2024-10-02 22:55 | NUR ---
PATIENT HAVING A PROCEEDURE AT THIS TIME.
[2024-10-02 23:03] LABS: Alanine Aminotransfer (ALT/SGP 13.0 U/L (12-78); Albumin, Blood 1.7 g/dL (3.4-5.0); Albumin/Globulin Ratio 0.5 (0.8-1.8); Anion Gap 10.0 mmol/L (3-11); Aspartate Aminotrans (AST/SGOT 12.0 U/L (12-37); Bilirubin, Total 0.6 mg/dL (0.1-1.0); Blood Urea Nitrogen 14.0 mg/dL (8-24); CO2, Blood 23.0 mmol/L (21-32); Calcium, Blood 6.8 mg/dL (8.5-10.1); Chloride, Blood 99.0 mmol/L (98-108); Creatinine, Blood 0.84 mg/dL (0.60-1.20); Globulin, Blood 3.6 g/dL (2.2-4.0); Glucose, Blood 116.0 mg/dL (70-99); Magnesium, Blood 1.5 mg/dL (1.6-2.4); Potassium, Blood 3.4 mmol/L (3.5-5.5); Sodium, Blood 129.0 mmol/L (136-145); Total Protein, Blood 5.3 g/dL (6.4-8.2)
[2024-10-03] VITALS (92 sets, daily range): BP systolic 73–141; BP diastolic 38–108
[2024-10-03] MEDS ORDERED: Potassium Chl 20MEQ/Water100ML 100 ML IV SCH (00:05)
[2024-10-03] MEDS ORDERED: Magnesium Sulf 2 GM/Water 50ML 50 ML IV ONE (00:05)
--- NOTE | 2024-10-03 00:07 | NUR ---
CALL TO DR CAPUTO REGARDING LABS. POTASSIUM AND MAG ORDERED PER ICU ELECTROLYTE PROTOCOL.
[2024-10-03] MEDS ORDERED: CALCIUM GLUC IN NACL, ISO-OSM 50 ML IV ONE (00:20)
[2024-10-03 02:27] LABS: BAND PERCENT MAN 23 % (0-8); BASOPHILS ABSOLUTE MAN 0.00 K/mm3 (0.00-0.23); BASOPHILS PERCENT MAN 0 % (0-2); EOSINOPHILS ABSOLUTE MAN 0.00 K/mm3 (0.00-0.68); EOSINOPHILS PERCENT MAN 0 % (0-6); LYMPHOCYTES ABSOLUTE MAN 1.43 K/mm3 (0.84-5.20); LYMPHOCYTES PERCENT MAN 9 % (21-46); MONOCYTES ABSOLUTE MAN 0.15 K/mm3 (0.16-1.47); MONOCYTES PERCENT MAN 1 % (4-13); NEUTROPHILS ABSOLUTE MAN 14.34 K/mm3 (1.96-9.15); SEG NEUTROPHILS PERCENT MAN 67 % (41-73)
[2024-10-03 05:00] LABS: Hematocrit 33.1 % (37.0-53.0); Hemoglobin 11.1 g/dL (13.5-17.5); Mean Corpuscular HGB Conc 33.5 g/dL (31.5-36.5); Mean Corpuscular Volume 84 fL (80-100); NRBC ABSOLUTE 0.00 K/mm3 (0.00-0.02); NRBC Auto 0.0 /100 WBC (0.0-0.2); Platelet Count 316 K/mm3 (150-400); RDW Coefficient Variation 15.6 % (11.7-14.2); RDW Standard Deviation 47.2 fL (35.1-46.3)
[2024-10-03 06:01] LABS: Anion Gap 11.0 mmol/L (3-11); Blood Urea Nitrogen 15.0 mg/dL (8-24); CO2, Blood 25.0 mmol/L (21-32); Calcium, Blood 7.4 mg/dL (8.5-10.1); Chloride, Blood 98.0 mmol/L (98-108); Creatinine, Blood 0.73 mg/dL (0.60-1.20); Glucose, Blood 73.0 mg/dL (70-99); Potassium, Blood 3.9 mmol/L (3.5-5.5); Sodium, Blood 130.0 mmol/L (136-145)
--- NOTE | 2024-10-03 06:03 | NUR ---
SHIFT SUMMARY PT ALERT, ORIENTED X4 AT START OF SHIFT, BECAME FORGETFUL, DISORIENTED TO SITUATION LATER IN SHIFT, REORIENTED TO SURROUNDINGS AND SITUATION FREQ. BP UNSTABLE AT START OF SHIFT REQUIRING LEVOPHED AND THEN ADDITION OF VASOPRESSIN. DR CAPUTO UPDATED WITH LEVO VIA PERIPHERAL LINE AT MAX OF 10 MCG AND NEED FOR CENTRAL LINE. DR CAPUTO INSERTED RIGHT IJ CENTRAL LINE AND PRESSORS WHICHED TO CENTRAL LINE. TITRATED PRESSORS T/O NIGHT TO KEEP MAP>65. VASOPRESSIN ON HOLD AT THIS TIME AND LEVOPHED AT 5 MCG (SEE FLOWSHEET) LABS DRAWN PRIOR TO CENTRAL LINE INSERTION, RESULTS REPORTED TO DR CAPUTO, ORDERS RECEIVED FOR K, MG, AND CA REPLACEMENTS WHICH WERE GIVEN. REPEAT LABS DRAWN AFTER COMPLETION OF REPLACEMENTS, RESULTS PENDING. RR AN ISSUE OFF/ON T/O SHIFT, PT CPAP MACHINE AVAIL AND OFFERED MULT TIMES, PT REFUSED UNTIL 0545. NOW LESS TACHYPNIC, PT STATES HE FEELS LESS SOB. O2 SAT REMAINED >96% T/O SHIFT IN SPITE OF HIGHER RR. PT NPO AFTER MIDNIGHT PER ORDER, PENDING POSSIBLE COLONOSCOPY TODAY. WILL UPDATE DAY RN WITH ALL OUTSTANDING ISSUES AND PROBLEMS TO DATE.
[2024-10-03 06:12] LABS: BAND PERCENT MAN 29 % (0-8); BASOPHILS ABSOLUTE MAN 0.00 K/mm3 (0.00-0.23); BASOPHILS PERCENT MAN 0 % (0-2); EOSINOPHILS ABSOLUTE MAN 0.11 K/mm3 (0.00-0.68); EOSINOPHILS PERCENT MAN 1 % (0-6); LYMPHOCYTES ABSOLUTE MAN 2.27 K/mm3 (0.84-5.20); LYMPHOCYTES PERCENT MAN 20 % (21-46); MONOCYTES ABSOLUTE MAN 0.34 K/mm3 (0.16-1.47); MONOCYTES PERCENT MAN 3 % (4-13); NEUTROPHILS ABSOLUTE MAN 8.62 K/mm3 (1.96-9.15); SEG NEUTROPHILS PERCENT MAN 47 % (41-73)
--- NOTE | 2024-10-03 18:10 | NUR ---
SUMMARY PT A/O X4. FORGETFUL AT TIMES AND WILL SAY SOMETHING THAT DOESN'T FOLLOW CONVERSATION. CALLED DR. KELSEY THIS AFTERNOON ABOUT PT BEING NPO FOR COLONOSCOPY. DR. KELSEY SAYS HE WILL NOT BE GETTING ONE NOW. PT NOW TAKING CL DIET WITHOUT ISSUE. ON LEVOPHED AT 5MCG/MIN. DECREASED UO, DR. AMARO AWARE. OOB TO CHAIR WITH LIFT FOR CLOSE TO 2HOURS. WORKED WITH PT AND OT WELL. UNABLE TO DO MRI WITH PT ON LEVOPHED. PT IS WEAKER ON R SIDE. NO OTHER CHANGES.
[2024-10-04] VITALS (84 sets, daily range): BP systolic 79–136; BP diastolic 44–105
[2024-10-04 04:02] LABS: BASOPHILS ABSOLUTE AUTO 0.10 K/mm3 (0.00-0.23); BASOPHILS PERCENT AUTO 1 % (0-2); Hematocrit 33.3 % (37.0-53.0); Hemoglobin 11.3 g/dL (13.5-17.5); LYMPHOCYTES ABSOLUTE AUTO 1.61 K/mm3 (0.84-5.20); LYMPHOCYTES PERCENT AUTO 10 % (21-46); MONOCYTES ABSOLUTE AUTO 0.44 K/mm3 (0.16-1.47); MONOCYTES PERCENT AUTO 3 % (4-13); Mean Corpuscular HGB Conc 33.9 g/dL (31.5-36.5); Mean Corpuscular Volume 82 fL (80-100); NRBC ABSOLUTE 0.03 K/mm3 (0.00-0.02); NRBC Auto 0.2 /100 WBC (0.0-0.2); Platelet Count 323 K/mm3 (150-400); RDW Coefficient Variation 15.7 % (11.7-14.2); RDW Standard Deviation 47.0 fL (35.1-46.3)
[2024-10-04 04:03] LABS: EOSINOPHILS ABSOLUTE AUTO 0.02 K/mm3 (0.00-0.68); EOSINOPHILS PERCENT AUTO 0 % (0-6); IMMATURE GRAN ABSOLUTE AUTO 0.26 K/mm3 (0.00-0.10); IMMATURE GRAN PERCENT AUTO 2 % (0-1); NEUTROPHILS ABSOLUTE AUTO 14.33 K/mm3 (1.96-9.15); NEUTROPHILS PERCENT AUTO 86 % (41-73)
[2024-10-04 04:17] LABS: Anion Gap 8.0 mmol/L (3-11); Blood Urea Nitrogen 26.0 mg/dL (8-24); CO2, Blood 29.0 mmol/L (21-32); Calcium, Blood 7.8 mg/dL (8.5-10.1); Chloride, Blood 97.0 mmol/L (98-108); Creatinine, Blood 0.84 mg/dL (0.60-1.20); Glucose, Blood 104.0 mg/dL (70-99); Potassium, Blood 3.8 mmol/L (3.5-5.5); Sodium, Blood 130.0 mmol/L (136-145)
[2024-10-04 04:34] LABS: BAND PERCENT MAN 31 % (0-8); BASOPHILS ABSOLUTE MAN 0.00 K/mm3 (0.00-0.23); BASOPHILS PERCENT MAN 0 % (0-2); EOSINOPHILS ABSOLUTE MAN 0.00 K/mm3 (0.00-0.68); EOSINOPHILS PERCENT MAN 0 % (0-6); LYMPHOCYTES ABSOLUTE MAN 1.34 K/mm3 (0.84-5.20); LYMPHOCYTES PERCENT MAN 8 % (21-46); MONOCYTES ABSOLUTE MAN 0.16 K/mm3 (0.16-1.47); MONOCYTES PERCENT MAN 1 % (4-13); NEUTROPHILS ABSOLUTE MAN 15.25 K/mm3 (1.96-9.15); SEG NEUTROPHILS PERCENT MAN 60 % (41-73)
--- NOTE | 2024-10-04 06:31 | NUR ---
SHIFT SUMMARY REMAINS ALERT, ANSWERS ORIENTATION QUESTIONS CORRECTLY, BUT FORGETFUL AND NEEDS PERIODIC REORIENTING TO SURROUNDINGS AND SITUATION. RR CON'T MID 20'S TO LOW 30'S, REFUSES USE OF CPAP MACHINE, NC 2L PERIODICALLY PLACED, PT OCCAS REMOVES AND IT IS REAPPLIED. DENIES SOB. REMAINING PIV IN RIGHT FA REMOVED BY PT. RIGHT IJ CL ONLY ACCESS NOW. STILL IN AFIB 100'S TO 120'S, LEVO GTT AT 6 MCG FOR LAST FEW HOURS TO KEEP MAP>65. AFEBRILE. ORAL FULL LIQ, MOSTLY SIPS OF H20 INTAKE T/O NIGHT, U.O. MARGINAL T/O NIGHT. WILL UPDATE DAY RN WITH ALL OUTSTANDING ISSUES AND PROBLEMS TO DATE.
[2024-10-04] MEDS ORDERED: NS 500 ML IV STA (09:57)
[2024-10-04 10:50] LABS: pH Blood Venous 7.38 (7.34-7.37)
[2024-10-04] MEDS ORDERED: Albumin (Human) 25gm/100ml 100 ML IV SCH (12:15)
[2024-10-04] MEDS ORDERED: Cosyntropin 0.25 MG / ML 1ML Vial IV ONE (12:25)
[2024-10-04] MEDS ORDERED: NS 1,000 ML IV ONE (13:00)
[2024-10-04] MEDS ORDERED: NS 250 ML IV PRN (14:05)
--- NOTE | 2024-10-04 18:45 | NUR ---
PT LEHHARGIC BUT ORIENTED X3, WITH PERIODS OF CONFUSION AND MILD DISORIENTATION. REORIENTS EASILY. AFEBRILE BUT SKIN IS WARM AND DIAPHORETIC. PT REPORTS FEELING HOT - FAN AND ICE PACK AT BEDSIDE. GOWN REMOVED PER PT REQUEST DUE TO FEELING HOT AND SMOTHERED. PT INITIALLY IN AFIB WITH RATE 120S-130S BUT CONVERTED AROUND 0830 TO AN TACHYCARDIC ATRIAL ARRYTHMIA WITH FREQUENT PACS. PT HYPOTENSIVE, ON LEVOPHED AND MIDODRINE. PT ON ROOM AIR AT SHIFT CHANGE - AGREED TO UTILIZE CPAP RR INCREASED TO HIGH 40S AND REMAINED SHALLOW. DR. AMARO NOTIFIED OF OVERALL POOR PRESENTATION OF PATIENT AND PULMONARY CONSULT PLACED. DR. BOLANOS NOTIFIED IN UNIT. PT RECEIVED 1500 ML NS IV BOLUS, LR IVF AT 125/HR, 50G ALBUMIN, SOLUMEDROL BLOOD CULTURES PERFORMED, ACTH STIM TEST PERFORMED. DR. BOLANOS NOTIFIED OF DIMINISHED UOP OF 300 FOR SHIFT. AFTER RECEIVING IV FLUIDS, PT HR IMPROVED WITH TRANSIENT AND SELF-LIMITING EPISODES OF AFIB RVR HIGH 170S. LEVO CONTINUES TO INFUSE. RR IMPROVED AND NOW IN 20S. CHG BATH PERFORMED. LINEN AND LIFT SHEET CHANGED. CVL TO RIJ. SAFETY, COMFORT, HYGIENE ADDRESSED. PT RESTING COMFORTABLY IN BED WITH NO DISTRESS PRESENT.
[2024-10-04] MEDS ORDERED: NS 1,000 ML IV SCH (20:25)
[2024-10-05] VITALS (55 sets, daily range): BP systolic 92–147; BP diastolic 46–96
[2024-10-05 03:48] LABS: Hematocrit 27.9 % (37.0-53.0); Hemoglobin 9.5 g/dL (13.5-17.5); Mean Corpuscular HGB Conc 34.1 g/dL (31.5-36.5); Mean Corpuscular Volume 83 fL (80-100); NRBC ABSOLUTE 0.00 K/mm3 (0.00-0.02); NRBC Auto 0.0 /100 WBC (0.0-0.2); Platelet Count 223 K/mm3 (150-400); RDW Coefficient Variation 15.9 % (11.7-14.2); RDW Standard Deviation 48.1 fL (35.1-46.3)
[2024-10-05 04:08] LABS: BAND PERCENT MAN 18 % (0-8); BASOPHILS ABSOLUTE MAN 0.00 K/mm3 (0.00-0.23); BASOPHILS PERCENT MAN 0 % (0-2); EOSINOPHILS ABSOLUTE MAN 0.00 K/mm3 (0.00-0.68); EOSINOPHILS PERCENT MAN 0 % (0-6); LYMPHOCYTES ABSOLUTE MAN 0.60 K/mm3 (0.84-5.20); LYMPHOCYTES PERCENT MAN 5 % (21-46); MONOCYTES ABSOLUTE MAN 0.36 K/mm3 (0.16-1.47); MONOCYTES PERCENT MAN 3 % (4-13); NEUTROPHILS ABSOLUTE MAN 11.15 K/mm3 (1.96-9.15); SEG NEUTROPHILS PERCENT MAN 74 % (41-73)
[2024-10-05 04:12] LABS: Anion Gap 10.0 mmol/L (3-11); Blood Urea Nitrogen 27.0 mg/dL (8-24); CO2, Blood 26.0 mmol/L (21-32); Calcium, Blood 7.6 mg/dL (8.5-10.1); Chloride, Blood 99.0 mmol/L (98-108); Creatinine, Blood 0.61 mg/dL (0.60-1.20); Glucose, Blood 115.0 mg/dL (70-99); Potassium, Blood 3.6 mmol/L (3.5-5.5); Sodium, Blood 131.0 mmol/L (136-145)
--- NOTE | 2024-10-05 07:27 | NUR ---
ASSUME CARE: I have assumed care of this patient. At this time, he is awake and alert in bed on 3L O2 via NC.
[2024-10-05] MEDS ORDERED: Folic Acid 1 MG TAB PO SCH (09:00)
[2024-10-05] MEDS ORDERED: Albumin (Human) 25gm/100ml 100 ML IV ONE (10:55)
[2024-10-05] MEDS ORDERED: Vancomycin (Pharmacy Consult) IV SCH (14:45)
[2024-10-05] MEDS ORDERED: Vancomycin HCL 2,500 MG in NS 500 ML IV ONE (14:50)
--- NOTE | 2024-10-05 19:11 | NUR ---
SHIFT SUMMARY: Pt was up in chair for several hours today via lift. He was weaned down to room air and levophed titrated off. Pt attempted to stand to transfer to commode, however his legs were too weak. Pt attempted to call brother, Chris, without answer. Garrett in place for retention, draining clear dutch urine to gravity. Tylenol was given once for right shoulder pain. Cardiac rhythm changed to Afib in 110-120s; Dr Rico notified.
[2024-10-06 00:12] VITALS: BP 135/85
[2024-10-06 04:00] VITALS: BP 152/75
[2024-10-06 04:10] LABS: Hematocrit 31.2 % (37.0-53.0); Hemoglobin 10.5 g/dL (13.5-17.5); Mean Corpuscular HGB Conc 33.7 g/dL (31.5-36.5); Mean Corpuscular Volume 83 fL (80-100); NRBC ABSOLUTE 0.00 K/mm3 (0.00-0.02); NRBC Auto 0.0 /100 WBC (0.0-0.2); Platelet Count 240 K/mm3 (150-400); RDW Coefficient Variation 15.9 % (11.7-14.2); RDW Standard Deviation 48.5 fL (35.1-46.3)
--- NOTE | 2024-10-06 04:22 | NUR ---
SHIFT SUMMARY PT REMAINS ALERT HOWEVER FORGETFUL THROUGHOUT NIGHT. PLEASANTLY CONFUSED. VSS ON RA/CPAP @ NOC TO REMAINS >90%. ON TELE PT AFIB 100-120 WITH OCCASIONAL SPIKES TO 150s BUT DOES NOT SUSTAIN. PT HAS NO C/O PAIN THROUGHOUT NIGHT. ATTEMPTED THROUGHOUT NIGHT TO HAVE A BM BUT WAS UNSUCCESSFUL AND ONLY PASSED GAS. MEPILEX PLACED ON COCCYX D/T REDNESS. SHIFTING PT IN BED WITH PILLOWS AND WEDGES Q2HR. DOUGLASS CONTINUES TO DRAIN WITH GRAVITY, LESS THAN ADEQUATE DARK TODD URINE. FLUIDS RUNNING @ 50CC/HR. NO FURTHER QUESTIONS OR CONCERNS AT THIS TIME. WILL CONTINUE WITH PLAN OF CARE.
[2024-10-06 04:26] LABS: Albumin, Blood 1.9 g/dL (3.4-5.0); Anion Gap 7 mmol/L (3-11); Blood Urea Nitrogen 24 mg/dL (8-24); CO2, Blood 29 mmol/L (21-32); Calcium, Blood 7.9 mg/dL (8.5-10.1); Chloride, Blood 96 mmol/L (98-108); Creatinine, Blood 0.56 mg/dL (0.60-1.20); Glucose, Blood 121 mg/dL (70-99); Phosphorus, Blood 1.7 mg/dL (2.5-4.9); Potassium, Blood 4.0 mmol/L (3.5-5.5); Sodium, Blood 128 mmol/L (136-145)
[2024-10-06 04:33] LABS: BAND PERCENT MAN 34 % (0-8); BASOPHILS ABSOLUTE MAN 0.00 K/mm3 (0.00-0.23); BASOPHILS PERCENT MAN 0 % (0-2); EOSINOPHILS ABSOLUTE MAN 0.00 K/mm3 (0.00-0.68); EOSINOPHILS PERCENT MAN 0 % (0-6); LYMPHOCYTES ABSOLUTE MAN 0.91 K/mm3 (0.84-5.20); LYMPHOCYTES PERCENT MAN 8 % (21-46); MONOCYTES ABSOLUTE MAN 0.68 K/mm3 (0.16-1.47); MONOCYTES PERCENT MAN 6 % (4-13); MYELOCYTE ABSOLUTE MAN 0.11 K/mm3 (0.00-0.00); MYELOCYTE PERCENT MAN 1 % (0-0); NEUTROPHILS ABSOLUTE MAN 9.67 K/mm3 (1.96-9.15); SEG NEUTROPHILS PERCENT MAN 51 % (41-73)
[2024-10-06 07:19] VITALS: BP 122/81
[2024-10-06 12:00] VITALS: BP 125/73
[2024-10-06 16:43] VITALS: BP 107/63
--- NOTE | 2024-10-06 16:53 | NUR ---
SHIFT SUMMARY PT HAS CONTINUED TO BE CONFUSED THROUGHOUT THE DAY, OFTEN THINKING HE WAS AT HIS BROTHER'S HOUSE OR SOMEWHERE OTHER THAN THE HOSPITAL. HE HAS NOT HAD MANY HALLUCINATIONS HE HAD THIS MORNING. HE KEEPS SAYING HE IS READY TO GO HOME AND HAS TO BE REMINDED WHY HE IS IN THE HOSPITAL. PT RESPONDS WELL TO REORIENTATION, BUT DOESN'T RETAIN THE INFORMATION FOR LONG. PT GOT UP TO THE CHAIR WITH THE LIFT TODAY, LIGHTS ON AND DRAPES OPEN THROUGHOUT THE DAY TO TRY AND HELP WITH THE DELIRIUM. PT'S LUNGS ARE CLEAR, BUT HE HAS DYSPNEA WITH MINIMAL EXERTION. HE IS IN SR WITH FREQUENT PACS. DURING HIS BATH, WHEN HE WAS LYING FLAT AND ROLLING BACK AND FORTH, HE HAD SHORT, SELF - LIMITING RUNS OF SVT WITH RATE IN THE 150S. SPOKE WITH DR. AMARO THIS AFTERNOON AND RECEIVED OK TO ADVANCE DIET TOLERATED. NO BM TODAY. TODD COLORED URINE IN THE DOUGLASS BAG. PT'S BROTHER VISITED WITH HIM TODAY.
[2024-10-06 20:00] VITALS: BP 103/50
[2024-10-07] VITALS: BP 109/52
[2024-10-07 05:27] LABS: Hematocrit 35.8 % (37.0-53.0); Hemoglobin 12.3 g/dL (13.5-17.5); Mean Corpuscular HGB Conc 34.4 g/dL (31.5-36.5); Mean Corpuscular Volume 82 fL (80-100); NRBC ABSOLUTE 0.02 K/mm3 (0.00-0.02); NRBC Auto 0.1 /100 WBC (0.0-0.2); Platelet Count 238 K/mm3 (150-400); RDW Coefficient Variation 16.0 % (11.7-14.2); RDW Standard Deviation 48.1 fL (35.1-46.3)
[2024-10-07 05:53] LABS: Albumin, Blood 1.5 g/dL (3.4-5.0); Anion Gap 10 mmol/L (3-11); Blood Urea Nitrogen 24 mg/dL (8-24); CO2, Blood 26 mmol/L (21-32); Calcium, Blood 7.3 mg/dL (8.5-10.1); Chloride, Blood 96 mmol/L (98-108); Creatinine, Blood 0.57 mg/dL (0.60-1.20); Glucose, Blood 91 mg/dL (70-99); Phosphorus, Blood 2.2 mg/dL (2.5-4.9); Potassium, Blood 3.9 mmol/L (3.5-5.5); Sodium, Blood 128 mmol/L (136-145)
[2024-10-07 06:07] LABS: BAND PERCENT MAN 17 % (0-8); BASOPHILS ABSOLUTE MAN 0.00 K/mm3 (0.00-0.23); BASOPHILS PERCENT MAN 0 % (0-2); EOSINOPHILS ABSOLUTE MAN 0.00 K/mm3 (0.00-0.68); EOSINOPHILS PERCENT MAN 0 % (0-6); LYMPHOCYTES ABSOLUTE MAN 1.21 K/mm3 (0.84-5.20); LYMPHOCYTES PERCENT MAN 8 % (21-46); METAMYELOCYTE ABSOLUTE MAN 0.30 K/mm3 (0.00-0.00); METAMYELOCYTE PERCENT MAN 2 % (0-0); MONOCYTES ABSOLUTE MAN 0.45 K/mm3 (0.16-1.47); MONOCYTES PERCENT MAN 3 % (4-13); MYELOCYTE ABSOLUTE MAN 0.15 K/mm3 (0.00-0.00); MYELOCYTE PERCENT MAN 1 % (0-0); NEUTROPHILS ABSOLUTE MAN 13.04 K/mm3 (1.96-9.15); SEG NEUTROPHILS PERCENT MAN 69 % (41-73)
[2024-10-07 08:29] VITALS: BP 91/62
[2024-10-07 11:27] VITALS: BP 103/71
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
[2024-10-07 14:40] VITALS: BP 115/58
[2024-10-07 16:00] VITALS: BP 97/60
[2024-10-07 17:14] LABS: Anion Gap 7.0 mmol/L (3-11); Blood Urea Nitrogen 31.0 mg/dL (8-24); CO2, Blood 23.0 mmol/L (21-32); Calcium, Blood 7.9 mg/dL (8.5-10.1); Chloride, Blood 95.0 mmol/L (98-108); Creatinine, Blood 0.75 mg/dL (0.60-1.20); Glucose, Blood 117.0 mg/dL (70-99); Potassium, Blood 4.3 mmol/L (3.5-5.5); Sodium, Blood 121.0 mmol/L (136-145)
--- NOTE | 2024-10-07 17:35 | NUR ---
SHIFT SUMMARY PT'S MENTATION IMPROVED THROUGHOUT THE DAY, TO THE POINT PT WAS ORIENTED TO PERSON, PLACE, AND YEAR. NO HALLUCINATIONS NOTICED THIS AFTERNOON. HE WAS ABLE TO WORK WITH SPEECH, PT AND OT. LUNGS ARE CLEAR, RA, REMAINS IN SR WITH PACs. STILL HAVING OCCASIONAL SHORT RUNS OF SVT. MAP CURRENTLY 67. POOR URINE OUTPUT TODAY. SPOKE WITH DR. MILLER ABOUT IT THIS AFTERNOON AND REPEAT BMP DONE. DR. MILLER NOTIFIED WITH RESULTS.
[2024-10-08] VITALS (17 sets, daily range): BP systolic 65–106; BP diastolic 47–82
[2024-10-08 03:32] LABS: Hematocrit 31.1 % (37.0-53.0); Hemoglobin 10.7 g/dL (13.5-17.5); Mean Corpuscular HGB Conc 34.4 g/dL (31.5-36.5); Mean Corpuscular Volume 82 fL (80-100); NRBC ABSOLUTE 0.00 K/mm3 (0.00-0.02); NRBC Auto 0.0 /100 WBC (0.0-0.2); Platelet Count 277 K/mm3 (150-400); RDW Coefficient Variation 16.0 % (11.7-14.2); RDW Standard Deviation 47.8 fL (35.1-46.3)
[2024-10-08 03:52] LABS: BAND PERCENT MAN 14 % (0-8); BASOPHILS ABSOLUTE MAN 0.00 K/mm3 (0.00-0.23); BASOPHILS PERCENT MAN 0 % (0-2); EOSINOPHILS ABSOLUTE MAN 0.00 K/mm3 (0.00-0.68); EOSINOPHILS PERCENT MAN 0 % (0-6); LYMPHOCYTES ABSOLUTE MAN 1.27 K/mm3 (0.84-5.20); LYMPHOCYTES PERCENT MAN 5 % (21-46); METAMYELOCYTE ABSOLUTE MAN 0.25 K/mm3 (0.00-0.00); METAMYELOCYTE PERCENT MAN 1 % (0-0); MONOCYTES ABSOLUTE MAN 0.76 K/mm3 (0.16-1.47); MONOCYTES PERCENT MAN 3 % (4-13); NEUTROPHILS ABSOLUTE MAN 23.15 K/mm3 (1.96-9.15); SEG NEUTROPHILS PERCENT MAN 77 % (41-73)
[2024-10-08 03:59] LABS: Alanine Aminotransfer (ALT/SGP 16.0 U/L (12-78); Albumin, Blood 1.4 g/dL (3.4-5.0); Albumin/Globulin Ratio 0.4 (0.8-1.8); Anion Gap 10.0 mmol/L (3-11); Aspartate Aminotrans (AST/SGOT 17.0 U/L (12-37); Bilirubin, Total 0.9 mg/dL (0.1-1.0); Blood Urea Nitrogen 37.0 mg/dL (8-24); CO2, Blood 26.0 mmol/L (21-32); Calcium, Blood 7.6 mg/dL (8.5-10.1); Chloride, Blood 94.0 mmol/L (98-108); Creatinine, Blood 0.73 mg/dL (0.60-1.20); Globulin, Blood 3.9 g/dL (2.2-4.0); Glucose, Blood 110.0 mg/dL (70-99); Phosphorus, Blood 2.7 mg/dL (2.5-4.9); Potassium, Blood 3.9 mmol/L (3.5-5.5); Sodium, Blood 126.0 mmol/L (136-145); Total Protein, Blood 5.3 g/dL (6.4-8.2)
--- NOTE | 2024-10-08 05:45 | NUR ---
SHIFT SUMMARY PT HAS TOLERATED SHIFT OVERNIGHT WELL WITH NO SIGNIFICANT EVENTS. PT IS CURRENTLY RESTING COMFORTABLY IN ROOM. PT HAS BEEN CONFUSED THROUGHOUT SHIFT THIS EVENING. PT IS ABLE TO STATE NAME AND BIRTHDAY AND LOCATION ACCURATELY. CALL LIGHT WITHIN REACH. WILL CONTINUE TO MONITOR UNTIL REPORT PASSED TO DAY SHIFT TEAM.
--- NOTE | 2024-10-08 08:07 | NUR ---
NURSING ICU DAYSHIFT: Assumed care of pt at approx 0700. Awake, slow to respond, speech quiet. Oriented to self only, stated year is 2075 and Doyle is president. Very pleasant, follows simple commands, significant weakness and requires assistance w/ADL's. Skin pale w/scattered bruising to ext's, tegaderm to RIJ where previous CL was removed, redness reported to coccyx and abrasion to L buttocks. Cardiac monitoring in place, NSR w/frequent PAC's, SBP 90's prior to a.m. meds, trace general edema t/o, no c/o CP/pressure. L/S cta in upper lobes, RLL dim w/minimal air movement, LLL dim w/fine crackles, respirations shallow and rapid, O2 sat mid 90's on RA, occ SUPERINTENDENT TESTS cough. Abd obese, mildly distended, BT+, c/o mild nausea this a.m., FC in place draining dutch/orange urine. PG to LUE w/LR infusing at 50mls/hr. Nurse physician rounding completed, discussed plan of care. Follow up abd CT to be completed today. Pt denies any current questions/needs. Call light in reach though frequent rounding required. No s/s of acute distress, cont to monitor for any changes.
[2024-10-08] MEDS ORDERED: Cefepime HCl 2,000 MG in NS 100 ML IV SCH ×2 (14:00→23:00)
--- NOTE | 2024-10-08 15:46 | NUR ---
TRANSFER OF CARE Pt spent majority of a.m. in chair. Worked with PT/OT, tolerated minimally. Abd CT completed this afternoon, results given to this RN and PMD by radiologist. Surgeon consulted by PMD, surgical plan discussed and consent completed at bedside. Pt changed back to ICU status, LR increased to 200mls/hr x1 liter, new abx administered as ordered, pt xferred BTB w/ceiling lift. Noted to have short episodes of SVT w/HR 150's, provider notified. New d/o received for PO metoprolol tartrate. Transfer care to peer RN, report provided.
--- NOTE | 2024-10-08 15:56 | NUR ---
ASSUMPTION OF CARE ASSUMED CARE OF PT AT APPROXIMATELY 1500, PT AWAKE AND SLIGHTLY CONFUSED IN BED. ORIENTED TO SELF AND PLACE, CONFUSED ON SITUATION AND TIME. PT EASILY REDIRECTED AND IS COOPERATIVE W/ CARE ABLE TO ANSWER SIMPLE QUESTIONS AND FOLLOW COMMANDS. PT ABLE TO MOVE ALL EXTREMETIES, BUT IS WEAK. PT DENIES PAIN, BUT REPORTS ABD FEELS "FULL". LUNG SOUNDS DIM T/O DESAI, SATURATING >95% ON RA. NSR ON MONITOR W/ OCCASIONAL PAC AND RUNS OF SVT. ABD FIRM TO PALPATION, PT DENIES TENDERNESS. BOWEL SOUNDS HYPOACTIVE. DOUGLASS CATHERTER IN PLACE ND DRAINING TODD URINE TO GRAVITY D/T RETENTION. SCATTERED ECCHYMOSIS ON EXTREMETIES AND OLD CVC TO RIJ. DRESSING OF XEROFORM GAUZE AND TEGADERM REMOVED. REDNESS TO COCCYX NOTED. ACCESS: LUE POWERGLIDE, LUE PIV GTTS: LR AT 200ML/HR
[2024-10-08] MEDS ORDERED: MetroNIDAZOLE 500MG/NS 100 ml 100 ML IV SCH (16:00)
[2024-10-08] MEDS ORDERED: Etomidate 2MG / ML 10ML Vial ONE (16:22)
[2024-10-08] MEDS ORDERED: Ropivacaine 0.2% HCl/Pf 2 MG/ML 20ML Vial ONE (16:22)
[2024-10-08] MEDS ORDERED: Midazolam HCl 1MG / ML 2ML Vial ONE (16:25)
[2024-10-08] MEDS ORDERED: Bupivacaine 0.5% HCl 5 MG/ML 30MLVIAL ONE (16:42)
[2024-10-08] MEDS ORDERED: Benzocaine Oral Spray 0.5ML UD ONE (16:59)
--- NOTE | 2024-10-08 17:00 | NUR ---
DEPARTURE FROM ROOM TO OR PT TAKEN TO OR BY SURGERY TEAM VIA BED AT 1700. TAKEN ON CONINUOUS CARDIAC MONITORING.
[2024-10-08] MEDS ORDERED: FentaNYL Citrate 50 MCG/ML 2 ML Injection ONE ×2 (17:26→17:50)
[2024-10-08] MEDS ORDERED: Metoprolol Tartrate 0 ML IV ONE (17:32)
[2024-10-08] MEDS ORDERED: Metoclopramide HCl 5MG / ML 2ML Vial ONE (17:32)
[2024-10-08] MEDS ORDERED: Metoprolol Tartrate 1 MG/ML 5 ML VIAL IV SCH (17:40)
[2024-10-08] MEDS ORDERED: Ondansetron HCl 2 MG / ML 2ML Vial ONE (18:22)
[2024-10-08] MEDS ORDERED: Dexamethasone Sod Phos 10 MG/ML 1ML VIAL ONE (18:22)
[2024-10-08] MEDS ORDERED: HYDROmorphone HCl/Pf 1MG SYR ONE (18:59)
[2024-10-08] MEDS ORDERED: HYDROmorphone HCl/Pf 1MG SYR IV PRN (19:30)
[2024-10-08] MEDS ORDERED: HydrALAZINE HCl 20 MG / ML 1ML Vial IV PRN (19:30)
[2024-10-08] MEDS ORDERED: ePHEDrine Sulfate 50 MG/ML 1ML Injection IV PRN (19:30)
[2024-10-08] MEDS ORDERED: Ondansetron HCl 2 MG / ML 2ML Vial IV PRN (19:30)
[2024-10-08] MEDS ORDERED: Rocuronium Bromide 10 MG/ML 5ML Injection IV ONE (19:35)
[2024-10-08] MEDS ORDERED: FentaNYL Citrate 50 MCG/ML 2 ML Injection IV PRN ×2 (19:35)
[2024-10-08] MEDS ORDERED: Sugammadex Sodium 200 MG/2ML SDV (100 MG/ML) ONE (19:36)
[2024-10-08] MEDS ORDERED: ALBUMIN HUMAN IV ONE ×2 (21:30→21:45)
[2024-10-09] VITALS (84 sets, daily range): BP systolic 80–137; BP diastolic 49–78
[2024-10-09] MEDS ORDERED: Hydrogen Peroxide 1.5 % Solution MT SCH
--- NOTE | 2024-10-09 00:35 | NUR ---
ASSUMPTION OF CARE/RETURN FROM OR: ASSUMED CARE OF PT AT 1899; REPORT RECIEVED FROM ARABELLA LIGHT. PT RETURNED FROM OR AT 2101. PT REMAINS INTUBATED WITH 7.0, 25 @ TEETH. PT ARRRIVED UNRESPONSIVE, BAGGED BY ANESTHESIOLOGIST. JANETT RT PLACED PT ON VENT WITH SETTINGS AC/VC 16/480/5/45, SPO2 90<; PT LUNGS ARE CLEAR WITH DIM BASES. PT SR ON MONITOR WITH HR 70-80'S, SBP 90'S. PT HAS NGT THAT IS TO LIS; GREEN BILE NOTED. PT HAD ILEUCECECTOMY WITH INCISION TO R. ABD AND ASHIA DRESSING IN PLACE; SMALL AMOUNTS OF BLOOD NOTED ON ASHIA DRESSING, OUTLINED. ILEOSTOMY TO RLQ WITH A DUSKY STOMA; DR. LIANG AT BEDSIDE TO ASSESS STOMA WITH THIS RN AND ACKNOWLEDGE APPEARANCE OF STOMA AND ASHIA DRESSING. PT HAS DOUGLASS THAT IS PATENT AND DRAINING TO GRAVITY; DARK YELLOW URINE. 19 FR ANJELICA DRAIN IN PLACE WITH SANGUINEOUS FLUID NOTED. PG TO ROGER THAT FLUSHES BUT DOES NOT DRAW BACK; PIV TO ROGER THAT IS PATENT AND INFUSING. LR @ 200 ML/HR AND PROPOFOL @ 10 MCG. AROUND 2229 PT BECOMES HYPOTENSIVE WITH MAPS <65, DR BOLANOS NOTIFIED AND LEVO INITIATED. CURRENTLY LEVO IS RUNNING AT 10 MCG WITH MAP 65<. PT IS GRIMACING TO PAIN BUT DOES NOT OPEN EYES OR MOVE EXTREMITIES.
[2024-10-09] MEDS ORDERED: NS 1,000 ML IV ONE (01:25)
[2024-10-09] MEDS ORDERED: Albumin (Human) 25gm/100ml 100 ML IV ONE (01:25)
[2024-10-09 03:25] LABS: Hematocrit 25.3 % (37.0-53.0); Hemoglobin 8.7 g/dL (13.5-17.5); Mean Corpuscular HGB Conc 34.4 g/dL (31.5-36.5); Mean Corpuscular Volume 84 fL (80-100); NRBC ABSOLUTE 0.05 K/mm3 (0.00-0.02); NRBC Auto 0.1 /100 WBC (0.0-0.2); Platelet Count 287 K/mm3 (150-400); RDW Coefficient Variation 16.5 % (11.7-14.2); RDW Standard Deviation 50.5 fL (35.1-46.3)
[2024-10-09 03:42] LABS: Alanine Aminotransfer (ALT/SGP 13.0 U/L (12-78); Albumin, Blood 1.8 g/dL (3.4-5.0); Albumin/Globulin Ratio 0.6 (0.8-1.8); Anion Gap 10.0 mmol/L (3-11); Aspartate Aminotrans (AST/SGOT 18.0 U/L (12-37); Bilirubin, Total 1.1 mg/dL (0.1-1.0); Blood Urea Nitrogen 40.0 mg/dL (8-24); CO2, Blood 24.0 mmol/L (21-32); Calcium, Blood 6.9 mg/dL (8.5-10.1); Chloride, Blood 100.0 mmol/L (98-108); Creatinine, Blood 0.84 mg/dL (0.60-1.20); Globulin, Blood 2.9 g/dL (2.2-4.0); Glucose, Blood 126.0 mg/dL (70-99); Potassium, Blood 4.2 mmol/L (3.5-5.5); Sodium, Blood 130.0 mmol/L (136-145); Total Protein, Blood 4.7 g/dL (6.4-8.2)
[2024-10-09 03:51] LABS: BAND PERCENT MAN 17 % (0-8); BASOPHILS ABSOLUTE MAN 0.00 K/mm3 (0.00-0.23); BASOPHILS PERCENT MAN 0 % (0-2); EOSINOPHILS ABSOLUTE MAN 0.00 K/mm3 (0.00-0.68); EOSINOPHILS PERCENT MAN 0 % (0-6); LYMPHOCYTES ABSOLUTE MAN 1.19 K/mm3 (0.84-5.20); LYMPHOCYTES PERCENT MAN 3 % (21-46); METAMYELOCYTE ABSOLUTE MAN 0.39 K/mm3 (0.00-0.00); METAMYELOCYTE PERCENT MAN 1 % (0-0); MONOCYTES ABSOLUTE MAN 0.39 K/mm3 (0.16-1.47); MONOCYTES PERCENT MAN 1 % (4-13); MYELOCYTE ABSOLUTE MAN 0.39 K/mm3 (0.00-0.00); MYELOCYTE PERCENT MAN 1 % (0-0); NEUTROPHILS ABSOLUTE MAN 37.59 K/mm3 (1.96-9.15); SEG NEUTROPHILS PERCENT MAN 77 % (41-73)
--- NOTE | 2024-10-09 03:57 | NUR ---
PT UPDATE: DR. BOLANOS CALLED AND NOTIFIED OF LEVO @ 10 MCG AND DIFFICULTY OBTAINING MORE PERIPHREAL ACCESS. DR. BOLANOS PLACED CENTRAL LINE TO R. SUBCLAVIAN. PG TO ROGER INFILTRATED; DR BOLANOS AWARE. PT CONTINUES ON LEVO @ 10 MCG, LR @ 125 MLS/HR AND PROPOFOL @ 5 MCG.
[2024-10-09] MEDS ORDERED: Pantoprazole Sodium 40 MG Injection IV SCH (06:00)
--- NOTE | 2024-10-09 06:06 | NUR ---
SHIFT SUMMARY: PT REMAINS INTUBATED AND SEDATED, VENT SETTINGS AC/VC 16/480/5/45% AND PROPOFOL @ 15 MCG. PT LEVO @ 14 MCG WITH SBP 90'S AND MAP 64<. PT AROUSES TO VERBAL STIMULI AND ATTEMPTS TO OPEN EYES, CONTINUTES WITH GRIMACING WITH PAIN. ALL OTHER VSS. ASHIA DRESSING CHANGED DUE TO FAILURE TO SEAL; UNBLE TO GET A GOOD SEAL AT THIS TIME. RLQ ILEOSTOMY CONTINUES DUSKY, DARK RED, LIQUID OUTPUT NOTED IN BAG. ANJELICA DRAIN NOTED TO LLQ WITH APPROX 160 MLS OUTPUT OF SANGUINEOUS LIQUID. PT DOUGLASS PATENT AND DRAINING TO GRAVITY; OLIGURIA NOTED, TODD URINE, DR. BOLANOS AWARE. NGT CONTINUES TO LIS WITH 100 MLS OUTPUT OF DARK GREEN LIQUID. R. SUBCLAVIAN CENTRAL LINE PATENT WITH LR @ 125 MLS/HR.
--- NOTE | 2024-10-09 07:00 | NUR ---
0700 assumption of care note patient is resting comfortably in sedation of propofol of 15mcg/kg/hr on the ventilator. patient is in restraints therese upper extrem. Patient is on levophed for bp support. midline diamante drain in place mild suction Dr Tarango aware. Patient has a wendie more drain to left quad. putting out serosangoineus fluid. Ostomy to right quad is purple in color with dark red liqud from it about 20ml. out. Patient has abd that is distended and hypobowel tones. Patient has ng to left nare with green bile out from it. Patient has ETT 7.0 25 at teeth, teeth or partially missing, asked dental hygienist to see pt. Patient has central line to right subclavian. dressing dry and intact. all ports flushable and return blood back. coccyx has red area and mepilex is in place. will continue care as directed.
[2024-10-09] MEDS ORDERED: Cetylpyridinium Chloride 1 EA MISC MT SCH (08:00)
[2024-10-09 08:39] LABS: Magnesium, Blood 2.0 mg/dL (1.6-2.4); Phosphorus, Blood 3.4 mg/dL (2.5-4.9)
[2024-10-09] MEDS ORDERED: MetroNIDAZOLE 500MG/NS 100 ml 100 ML IV SCH (10:00)
[2024-10-09] MEDS ORDERED: Albumin (Human) 25gm/100ml 100 ML IV SCH (12:30)
--- NOTE | 2024-10-09 17:39 | NUR ---
END OF SHIFT NOTE PATIENT HAS REMAINED INTUBATED T/O THE DAY WITH A RASS OF -2 TO -1. PT IS ON PROPOFOL AT 15MCG AND LEVOPHED DOWN TO 10MCG. ALSO HE IS ON LR AT 125/HR AND DID GET ALBUMIN TODAY. HIS NG IS TO LIS WITH GREEN BILE OUT. DR OK TO GIVE MEDS DOWN TUBE PER DR LIANG HOWEVER TODAY IT WAS REST DAY AND DR BOLANOS CHANGED MEDS TO IV. PT HAS THE 7.0 ETT 25 AND TEETH. SPUTUM IS FROTHY WHITE MODERATE AMOUNT OUT. PT HAS BEEN SEE BY THE DENTAL HYGIENIST TODAY. HIS MIDLIN INCISION IS BELOW A ASHIA DRAIN AND IT IS OK TO NOT HAVE A FULL SUCTION ON IT NOW PER DR LIANG, "ITS A DRESSING NOW" NO SIGNS OF BLEEDING THROUGHT THE MIDLINE DRESSING. PT HAS AN OSTOMY THAT IS STILL DRK PURPLE IN COLOR. DR LIANG IS AWARE. PT HAS A ANJELICA ESPINO DRAIN TO LEFT QUAD. WITH SERIOSANGENOUS FLUID OUT. PT HAS A DOUGLASS 14 FR AND IS PUTTING OUT GOOD VOLUME TODAY. STILL ORANGE IN COLOR HOWEVER. PT HAD HIS LEFT ARM ELEVATED MOST OF DAY D/T EDEMA 3 TO 4+ WHERE IT HAD INFILTRATED LAST NIGHT. CENTRAL LINE IN PLACE TO RIGHT SUBCLAVIAN. ALL PORTS ARE FLUSHING AND DRAWING BLOOD BACK FROM IT. HE DID GET A CHLORHEXIDINE BATH TODAY. RESTRAINTS REMAIN ON AT THIS TIME. BUT DID WAKE AND OR GIVE A GRIMMACE WITH ORAL CARE AND TURNS. HE DID GET FENTANYL IV FOR PAIN TO ABD WITH TURNS. WILL GIVE REPORT TO NEXT SHIFT AT SHIFT CHANGE
--- NOTE | 2024-10-09 20:07 | NUR ---
ASSUMPTION OF CARE/ASSESSMENT: ASSUMED CARE OF PT AT 1900; REPORT RECIEVED FROM KIKE LIGHT. PT REMAINS INTUBATED AND SEDATED WITH VENT SETTINGS AC/VC 16/480/5/30%. PT GRIMACES TO PAIN, ATTEMPTING TO OPEN EYES TO VERBAL STIMULI AND VERY WEAKLY GRIPPING HANDS ON COMMAND. PT PAINFUL WITH REPOSITIONING; PRN PAIN MEDS. LUNG SOUNDS ARE COARSE WITH DIM BASES, SPO2 94<. SR ON MONITOR WITH HR 60'S, SBP 120'S AND MAP 65<. NGT TO LIS WITH DARK GREEN OUTPUT. ILEOSTOMY TO RLQ, STOMA DARK PURPLE WITH MINIMAL DARK RED OUTPUT; DR. LIANG AWARE. MIDLINE INCISION WITH YASHIRA AND A ASHIA DRESSING THAT IS C/D/I; ASHIA DRESSING UNABLE TO GET A SEAL ON IT, PROVIDER AWARE AND NO CONCERNS. ANJELICA DRAIN TO LLQ THAT IS PATENT AND DRAINING SEROSANGUINEOUS FLUID. DOUGLASS PATENT AND DRAINING TO GRAVITY; URINE YELLOW AND OUTPUT NOTED TO BE INCREASING. PPP X 4, SCD'S IN PLACE. PT HAS R. SUBCLAVIAN CENTRAL LINE THAT IS INFUSING LEVO @ 6 MCG, PROPOFOL @ 15 MCG AND LR @ 125 MLS/HR.
[2024-10-09] MEDS ORDERED: Lactobacil 2-S.Thermo-Bifido 1 1 Cap PT SCH (21:00)
[2024-10-10] VITALS (83 sets, daily range): BP systolic 85–187; BP diastolic 43–132
[2024-10-10 04:09] LABS: Hematocrit 19.8 % (37.0-53.0); Hemoglobin 6.7 g/dL (13.5-17.5); Mean Corpuscular HGB Conc 33.8 g/dL (31.5-36.5); Mean Corpuscular Volume 83 fL (80-100); NRBC ABSOLUTE 0.02 K/mm3 (0.00-0.02); NRBC Auto 0.1 /100 WBC (0.0-0.2); Platelet Count 256 K/mm3 (150-400); RDW Coefficient Variation 16.8 % (11.7-14.2); RDW Standard Deviation 50.8 fL (35.1-46.3)
[2024-10-10 04:33] LABS: Alanine Aminotransfer (ALT/SGP 11.0 U/L (12-78); Albumin, Blood 1.9 g/dL (3.4-5.0); Albumin/Globulin Ratio 0.7 (0.8-1.8); Anion Gap 7.0 mmol/L (3-11); Aspartate Aminotrans (AST/SGOT 15.0 U/L (12-37); Bilirubin, Total 1.1 mg/dL (0.1-1.0); Blood Urea Nitrogen 27.0 mg/dL (8-24); CO2, Blood 27.0 mmol/L (21-32); Calcium, Blood 7.1 mg/dL (8.5-10.1); Chloride, Blood 104.0 mmol/L (98-108); Creatinine, Blood 0.58 mg/dL (0.60-1.20); Globulin, Blood 2.6 g/dL (2.2-4.0); Glucose, Blood 113.0 mg/dL (70-99); Phosphorus, Blood 2.1 mg/dL (2.5-4.9); Potassium, Blood 3.6 mmol/L (3.5-5.5); Sodium, Blood 134.0 mmol/L (136-145); Total Protein, Blood 4.5 g/dL (6.4-8.2)
[2024-10-10 04:40] LABS: BAND PERCENT MAN 13 % (0-8); BASOPHILS ABSOLUTE MAN 0.00 K/mm3 (0.00-0.23); BASOPHILS PERCENT MAN 0 % (0-2); EOSINOPHILS ABSOLUTE MAN 0.00 K/mm3 (0.00-0.68); EOSINOPHILS PERCENT MAN 0 % (0-6); LYMPHOCYTES ABSOLUTE MAN 0.48 K/mm3 (0.84-5.20); LYMPHOCYTES PERCENT MAN 2 % (21-46); METAMYELOCYTE ABSOLUTE MAN 0.48 K/mm3 (0.00-0.00); METAMYELOCYTE PERCENT MAN 2 % (0-0); MONOCYTES ABSOLUTE MAN 0.97 K/mm3 (0.16-1.47); MONOCYTES PERCENT MAN 4 % (4-13); MYELOCYTE ABSOLUTE MAN 0.48 K/mm3 (0.00-0.00); MYELOCYTE PERCENT MAN 2 % (0-0); NEUTROPHILS ABSOLUTE MAN 21.87 K/mm3 (1.96-9.15); SEG NEUTROPHILS PERCENT MAN 77 % (41-73)
--- NOTE | 2024-10-10 06:30 | NUR ---
SHIFT SUMMARY: NO ACUTE CHANGES OVERNIGHT; VSS THROUGHOUT THE SHIFT. PT REMAINS INTUBATED AND SEDATED, VENT SETTINGS UNCHANGED. PROPOFOL @ 20 MCG. LEVO WAS TITRATED OFF THIS MORNING. PT ILEOSTOMY TO RLQ REMAINS DARK PURPLE WITH DARK RED FLUID OUTPUT AND SOME YELLOW PARTICLES IN OUTPUT; DR. LIANG AWARE OF STOMA APPEARANCE. MIDLINE INCISION WITH ASHIA DRESSING REMAINS C/D/I; UNABLE TO GET A SEAL ON ASHIA DRESSING. ANJELICA DRAIN TO LLQ WITH 20 MLS OUTPUT THIS SHIFT OF SEROSANGUINOUS FLUID. HGB AT 6.7 THIS MORNING; WAITING FOR A UNIT OF PRBC'S FROM BLOOD BANK. WILL REPORT OFF TO ONCOMING RN.
--- NOTE | 2024-10-10 07:12 | NUR ---
ASSUMED CARE OF PATIENT AT APPROXIMATELY 0700. REPORT RECEIVED FROM NADEGE SOTELO. PT INTUBATED AND SEDATED, ROUSES TO VERBAL STIMULI DURING BEDSIDE REPORT. CONTINUOUS CARDIAC MONITORING IN PLACE, BP STABLE. VENT SETTINGS A/C VC 16/480/5/30%. NGT TO LIS. ILEOSTOMY TO RLQ, STOMA IS DARK PURPLE. MIDLINE c ASHIA DRESSING C/D/I. ANJELICA DRAIN TO LLQ. DOUGLASS PATENT. R SUBCLAVIAN INFUSING PROPOFOL AT 20 MCG/KG/MIN, LR AT 125. CALCIUM REPLACEMENT INFUSING. SEE SHIFT ASSESSMENT FOR FULL DETAILS.
--- NOTE | 2024-10-10 09:56 | NUR ---
EXTUBATION Pt extubated to room air at 0951. SpO2 97%. RR 20. Pt nodding head yes/no appropriately to answer questions. Restraints removed.
[2024-10-10] MEDS ORDERED: FentaNYL Citrate 50 MCG/ML 2 ML Injection IV PRN ×2 (10:40→12:25)
[2024-10-10] MEDS ORDERED: TPN Consult Notification XX ONE (13:25)
[2024-10-10] MEDS ORDERED: Parenteral Electolytes 40 ML,POTASSIUM PHOS,M-BASIC-D-BASIC 30 MMOL,Multivitamins 10 ML... IV SCH ×3 (17:00)
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
--- NOTE | 2024-10-10 21:04 | NUR ---
ASSUMPTION OF CARE/ASSESSMENT: ASSUMED CARE OF PT AT 1900; BEDSIDE SHIFT REPORT RECIEVED FROM PALMA LIGHT. PT IS A&O X 3, UNABLE TO STATE WHY HE IS AT THE HOSPITAL AND WHICH MONTH IT IS, BUT VERY PLEASANT AND COOPERATIVE WITH CARE. PT ON NC @ 2LPM, LUNGS CLEAR T/O WITH DIM BASES AND DENIES SOB AT THIS TIME. PT SR ON MONITOR WITH HR 60-70'S, SBP 140'S AND DENIES CHEST PAIN/PRESSURE. PT HAS NGT IN PLACE TO LIS, DARK GREEN OUTPUT NOTED. PT POST-OP DAY 2 FROM ILECECECTOMY AND ILEOSTOMY TO RLQ THAT IS DARK PURPLE AND DARK RED OUTPUT NOTED; DR. LIANG AWARE. ANJELICA DRAIN TO LLQ WITH SEROSANGUINEOUS OUTPUT. PT HAS PICC TO LONA THAT IS PATENT AND INFUSING LR @ 125 MLS/HR AND CPN @ 50 MLS/HR. R. SUBCLAVIAN CENTRAL LINE TAKEN OUT WITH A PETROLEUM AND GAUZE DRESSING IN PLACE WITH CLEAR TEGADERM; PT TOLERATED REMOVAL WELL. SMALL AMOUNT OF BLOOD ON DRESSING, SITE WITHOUT HEMATOMA AND NO TENDERNESS. PT HAS DOUGLASS THAT IS PATENT AND DRAINING TO GRAVITY. BED LOWERED, CALL LIGHT IN REACH.
[2024-10-11] VITALS (65 sets, daily range): BP systolic 123–188; BP diastolic 57–153
[2024-10-11] MEDS ORDERED: HydrALAZINE HCl 20 MG / ML 1ML Vial IV PRN (03:40)
[2024-10-11 04:07] LABS: Hematocrit 27.5 % (37.0-53.0); Hemoglobin 9.3 g/dL (13.5-17.5); Mean Corpuscular HGB Conc 33.8 g/dL (31.5-36.5); Mean Corpuscular Volume 83 fL (80-100); NRBC ABSOLUTE 0.04 K/mm3 (0.00-0.02); NRBC Auto 0.1 /100 WBC (0.0-0.2); Platelet Count 285 K/mm3 (150-400); RDW Coefficient Variation 16.3 % (11.7-14.2); RDW Standard Deviation 49.1 fL (35.1-46.3)
[2024-10-11 04:23] LABS: Albumin, Blood 1.8 g/dL (3.4-5.0); Anion Gap 7 mmol/L (3-11); Blood Urea Nitrogen 20 mg/dL (8-24); CO2, Blood 29 mmol/L (21-32); Calcium, Blood 7.2 mg/dL (8.5-10.1); Chloride, Blood 103 mmol/L (98-108); Creatinine, Blood 0.52 mg/dL (0.60-1.20); Glucose, Blood 97 mg/dL (70-99); Magnesium, Blood 1.9 mg/dL (1.6-2.4); Phosphorus, Blood 1.7 mg/dL (2.5-4.9); Potassium, Blood 3.6 mmol/L (3.5-5.5); Sodium, Blood 135 mmol/L (136-145); Triglycerides 178 mg/dL (30-160)
[2024-10-11 04:30] LABS: BAND PERCENT MAN 8 % (0-8); BASOPHILS ABSOLUTE MAN 0.00 K/mm3 (0.00-0.23); BASOPHILS PERCENT MAN 0 % (0-2); EOSINOPHILS ABSOLUTE MAN 0.00 K/mm3 (0.00-0.68); EOSINOPHILS PERCENT MAN 0 % (0-6); METAMYELOCYTE ABSOLUTE MAN 0.30 K/mm3 (0.00-0.00); METAMYELOCYTE PERCENT MAN 1 % (0-0); MONOCYTES ABSOLUTE MAN 0.00 K/mm3 (0.16-1.47); MONOCYTES PERCENT MAN 0 % (4-13); MYELOCYTE ABSOLUTE MAN 1.23 K/mm3 (0.00-0.00); MYELOCYTE PERCENT MAN 4 % (0-0); NEUTROPHILS ABSOLUTE MAN 29.27 K/mm3 (1.96-9.15); SEG NEUTROPHILS PERCENT MAN 87 % (41-73)
[2024-10-11] MEDS ORDERED: Potassium Phosphate Dibasic 20 MM in Dextrose 5% 500 ML IV ONE (05:20)
--- NOTE | 2024-10-11 05:55 | NUR ---
SHIFT SUMMARY: NO ACUTE CHANGE OVERNIGHT; VSS THROUGHOUT THE NIGHT, WITH THE EXCEPTION OF HTN. PRN HYDRALAZINE GIVEN WITH MINIMAL EFFECT THIS MORNING. PT REMAINS ON 2LPM VIA NC. MIDLINE INCISION WITH ASHIA DRESSING REMAINS INTAKE WITH NO NEW BLEEDING NOTED ON DRESSING. 30 MLS OUTPUT FROM ANJELICA DRAIN, 20 MLS OUTPUT FROM ILEOSTOMY. STOMA APPEARANCE REMAINS UNCHANGED. DOUGLASS PATENT AND DRAINING TO GRAVITY. PT DID NOT SLEEP AT ALL, CONTINUES PLEASANTLY CONFUSED BY ABLE TO STATE NAME/, CITY, LOCATION AND YEAR. CPN @ 50 MLS/HR AND PT RECEIVING KPHOS THIS MORNING. WILL REPORT OFF TO ONCOMING RN.
--- NOTE | 2024-10-11 07:04 | NUR ---
ASSUMED CARE OF PATIENT AT APPROXIMATELY 0700. REPORT RECEIVED FROM NADEGE SOTELO. PT AWAKE, INTERACTING c STAFF APPROPRIATELY DURING BEDSIDE REPORT. REPORTS PAIN IN HIS BACK AND SHOULDERS. CONTINUOUS CARDIAC MONITORING IN PLACE. ON 2LPM O2 VIA NC. DOUGLASS PATENT AND DRAINING TO GRAVITY. CPN INFUSING AT 50, K PHOS INFUSING. SEE SHIFT ASSESSMENT FOR FULL DETAILS.
[2024-10-11] MEDS ORDERED: Labetalol HCL 5 MG/ML 20MLVIAL IV PRN (10:00)
[2024-10-11] MEDS ORDERED: Enoxaparin 40 MG/0.4 ML SYR SC SCH (11:00)
[2024-10-11] MEDS ORDERED: Ipratropium/Albuterol SulF 2.5-0.5MG/3 ML Amp INH SCH (15:55)
[2024-10-11] MEDS ORDERED: PARENTERAL ELECTOLYTES POTASSIUM PHOSPHATE DIBASIC MM MULTIVITAMINS ZINC IV SCH (17:00)
[2024-10-11] MEDS ORDERED: [UNRECOGNIZED DRUG - OTHER] IV SCH (17:00)
--- NOTE | 2024-10-11 17:21 | NUR ---
SHIFT SUMMARY PT REMAINED ALERT AND ORIENTED X 3 T/O ENTIRETY OF SHIFT. PT INTIALLY UNSURE TO WHY HE WAS IN THE HOSPITAL BUT WHEN HE IS REMINDED OF PRECIPITATING EVENTS HE STATES HE REMEMBERS. ABLE TO FOLLOW COMMANDS, MAKE PURPOSEFUL MOVEMENTS, AND MAKE NEEDS KNOWN. AFEBRILE. MEDICATED FOR PAIN PER EMAR c GOOD BENEFIT. TO CHAIR FOR A FEW HOURS TODAY. CONTINUOUS CARDIAC MONITORING IN PLACE SHOWS SR. HYPERTENSIVE THIS SHIFT, MEDICATED PER EMAR c GOOD BENEFIT. ONE EPISODE OF DESATURATION TO 80'S THIS SHIFT. 10LPM O2 APPLIED TAYLA OXYMASK, PT TURNED c DEEP COUGH AND SATURATIONS RETURNED TO 90'S. IMAGING ORDERED PER DR. PARISH. NOW ON 2LPM O2 VIA NC c O2 SATURATION > 92%. PT CONTINUES TO HAVE THICK SECRETIONS THAT HE IS ABLE TO SELF SUCTION. CPN INFUSING VIA PICC. DOUGLASS PATENT c TODD COLORED URINE OUT. INCREASED OUTPUT TO OSTOMY, DR. LIANG AWARE. 20 ml OUT OF ANJELICA DRAIN. ISLAND DRESSING APPLIED TO MIDLINE PER DR. GARTH reynolds ORDERS TO CHANGE PRN. WILL CONTINUE TO MONITOR AND REPORT TO ONCOMING RN.
--- NOTE | 2024-10-11 21:08 | NUR ---
ASSUMPTION OF CARE: ASSUMED CARE AT START OF SHIFT (1899). PT IS DOING WELL AND RESTING IN BED. PT ALERT AND FOLLOWING COMMANDS. PT STATES THEY ARE HAVE 9/10 ABDOMNIAL AND BACK PAIN BUT NO CP OR SOB AT THIS TIME. LUNG SOUNDS ARE EQUAL AND COARSE THROUGHOUT, O2 @ 2LPM VIA NC WITH SPO2 >95%. SINUS RYTHM SBP: 150'S MAP >65 HR: 70'S. IV: PICC LINE IN LUE. DOUGLASS CATHETER IN PLACE AND DRAINING TO GRAVITY. NG TUBE PLACED AND CONNECTED TO CONTINUOUS SUCTION. ILLOSTOMY IN RLQ AND ANJELICA DRAIN ON L SIDE. LINES, CORDS, AND TUBES PLACED OUT OF REACH. CALL LIGHT PLACED WITHIN REACH.
[2024-10-12] VITALS (87 sets, daily range): BP systolic 88–170; BP diastolic 61–98
[2024-10-12 04:04] LABS: Hematocrit 28.9 % (37.0-53.0); Hemoglobin 9.8 g/dL (13.5-17.5); Mean Corpuscular HGB Conc 33.9 g/dL (31.5-36.5); Mean Corpuscular Volume 83 fL (80-100); NRBC ABSOLUTE 0.06 K/mm3 (0.00-0.02); NRBC Auto 0.2 /100 WBC (0.0-0.2); Platelet Count 297 K/mm3 (150-400); RDW Coefficient Variation 16.4 % (11.7-14.2); RDW Standard Deviation 49.1 fL (35.1-46.3)
[2024-10-12 04:21] LABS: Albumin, Blood 1.6 g/dL (3.4-5.0); Anion Gap 8 mmol/L (3-11); Blood Urea Nitrogen 21 mg/dL (8-24); CO2, Blood 29 mmol/L (21-32); Calcium, Blood 7.1 mg/dL (8.5-10.1); Chloride, Blood 101 mmol/L (98-108); Creatinine, Blood 0.42 mg/dL (0.60-1.20); Glucose, Blood 114 mg/dL (70-99); Magnesium, Blood 1.8 mg/dL (1.6-2.4); Phosphorus, Blood 2.1 mg/dL (2.5-4.9); Potassium, Blood 4.0 mmol/L (3.5-5.5); Sodium, Blood 134 mmol/L (136-145)
[2024-10-12 04:23] LABS: BAND PERCENT MAN 6 % (0-8); BASOPHILS ABSOLUTE MAN 0.00 K/mm3 (0.00-0.23); BASOPHILS PERCENT MAN 0 % (0-2); EOSINOPHILS ABSOLUTE MAN 0.00 K/mm3 (0.00-0.68); EOSINOPHILS PERCENT MAN 0 % (0-6); LYMPHOCYTES ABSOLUTE MAN 0.26 K/mm3 (0.84-5.20); LYMPHOCYTES PERCENT MAN 1 % (21-46); MONOCYTES ABSOLUTE MAN 0.79 K/mm3 (0.16-1.47); MONOCYTES PERCENT MAN 3 % (4-13); MYELOCYTE ABSOLUTE MAN 0.53 K/mm3 (0.00-0.00); MYELOCYTE PERCENT MAN 2 % (0-0); NEUTROPHILS ABSOLUTE MAN 24.93 K/mm3 (1.96-9.15); SEG NEUTROPHILS PERCENT MAN 88 % (41-73)
--- NOTE | 2024-10-12 06:23 | NUR ---
SHIFT SUMMARY: PT IS DOING WELL AND RESTING IN BED. NO ACUTE CHANGES DURING THE SHIFT. PT WAS ABLE TO SLEEP PART OF THE NIGHT. PT CONTINUE TO HAVE BACK PAIN AND IS GETTING PAIN MEDICATION PER EMR ORDERS. VITAL SIGN HAVE BEEN STABLE. PICC LINE IN RUE. DOUGLASS CATHER IN PLACE AND DRAINING TO GRAVITY. ILLOSTOMY IN RLQ. ANJELICA DRAIN ON LLQ. NG TUBE IS CONECTED TO CONTINUOUS SUCTION. LINES, CORDS, AND TUBES PLACED OUT OF REACH. CALL LIGHT PLACED WITHIN REACH. PT WILL SOMETIMES PRESS CALL LIGHT BUT WILL USUALLY START TO CALL OUT WHEN THEY NEED ASSISTANCE.
[2024-10-12] MEDS ORDERED: Furosemide 10 MG / ML 2ML Vial IV SCH (10:00)
--- NOTE | 2024-10-12 10:26 | NUR ---
AM NOTE: THIS RN ASSUMED CARE OF PT AT APPROX 0700, BEDSIDE REPORT FROM NOC RN. PT ALERT, ORIENTED X4 THIS AM. ABLE TO ANSWER QUESTIONS APPROPRIATELY & COMMUNICATE NEEDS. SPEECH IS SOFT & SLOW BUT CLEAR. HR 70-90'S, SINUS RHYTHM ON MONITOR. SBP 130-160'S, MAP >65. SPO2 >90% ON 2L VIA NC. NT SUCTION THIS AM PER RT W/ THICK YELLOW SECRETIONS. PT W/ WEAK COUGH EFFORT, UNABLE TO CLEAR OWN SECRETIONS W/ SELF-SUCTION. LUNG SOUNDS DIM BILATERALLY POST-SUCTION. AFEBRILE. DOUGLASS CATH PATENT & DRAINING TODD URINE TO GRAVITY. OSTOMY W/ LIQUID BROWN OUTPUT THIS AM, STOMA NOTED TO BE DUSKY IN APPEARANCE; DR. LIANG AWARE. NGT TO LOW-INTERMITTENT SUCTION PER ORDERS. MIDLINE ABD DRESSING CHANGED BY DR. LIANG THIS AM. SB DRAIN W/ MINIMAL SEROSANGUINEOUS OUTPUT. PT UP TO CHAIR THIS AM W/ LIFT, ABLE TO PARTICIPATE IN PHYSICAL THERAPY. CALL LIGHT IN REACH.
[2024-10-12] MEDS ORDERED: TPN Consult Notification XX ONE (12:45)
[2024-10-12] MEDS ORDERED: PARENTERAL ELECTOLYTES POTASSIUM PHOSPHATE DIBASIC MM MULTIVITAMINS ZINC IV SCH (17:00)
[2024-10-12] MEDS ORDERED: [UNRECOGNIZED DRUG - OTHER] IV SCH (17:00)
--- NOTE | 2024-10-12 17:21 | NUR ---
END OF SHIFT NOTE: NO ACUTE EVENTS THIS SHIFT. PT REMAINS A/OX3-4, SOFT-SPOKEN BUT ABLE TO COMMUNICATE NEEDS W/ STAFF. VOICES DESIRE TO PARTICIPATE IN CARE, REQUIRES ENCOURAGEMENT TO COUGH & MOVE EXTREMITIES. HR 80-100'S, SINUS RHYTHM ON MONITOR. SBP 100-130'S THIS AFTERNOON, MAP >65. SPO2 >90% ON ROOM AIR. TMAX 100.2, DOWN TO 99.4 W/ FAN IN PLACE. DOUGLASS CATH PATENT & DRAINING TODD URINE TO GRAVITY; 2450ML OUTPUT. OSTOMY TO RLQ W/ MINIMAL LIQUID BROWN OUTPUT. STOMA REMAINS DUSKY, DR. LIANG AWARE. NGT TO LIS, 50ML LIGHT BROWN OUTPUT THIS SHIFT. SB DRAIN TO LEFT ABD W/ APPROX 10ML SEROSANGUINEOUS OUTPUT THIS SHIFT. CPN INFUSING PER ORDERS. PT TOLERATING ICE CHIPS WELL, NO S/SX OF ASPIRATION OBSERVED BY THIS RN. NO OTHER NEEDS AT THIS TIME, CALL LIGHT IN REACH.
--- NOTE | 2024-10-12 20:57 | NUR ---
ASSUMPTION OF CARE: ASSUMED CARE AT START OF SHIFT (1899). REPORT RECEIVED FROM DAY SHIFT RN. PT IS DOING WELL AND RESTING IN BED. ALERT AND FOLLOWING COMMANDS. PT STATES HAVING 7/10 BACK/BUTTOCKS PAIN BUT NO CP OR SOB AT THIS TIME. LUNG SOUNDS ARE EQUAL AND COARSE THROUGHOUT AND DIMINISHED IN THE BASES. SPO2 >95% ON RA. SINUS RYTHM, SBP: 120-140'S MAP >65 AND HR: 70-80'S. IV: PICC LINE IN RUE. ILLIOSTOMY IN RLQ, SB DRAIN ON L ABDOMEN. DOUGLASS CATHETER IN PLACE AND DRAINING TO GRAVITY. LINES AND CORDS PLACED OUT OF REACH. CALL LIGHT PLACED WITHIN REACH.
[2024-10-13] VITALS (32 sets, daily range): BP systolic 114–147; BP diastolic 59–111
[2024-10-13 04:27] LABS: Hematocrit 29.9 % (37.0-53.0); Hemoglobin 10.2 g/dL (13.5-17.5); Mean Corpuscular HGB Conc 34.1 g/dL (31.5-36.5); Mean Corpuscular Volume 84 fL (80-100); NRBC ABSOLUTE 0.04 K/mm3 (0.00-0.02); NRBC Auto 0.2 /100 WBC (0.0-0.2); Platelet Count 278 K/mm3 (150-400); RDW Coefficient Variation 16.1 % (11.7-14.2); RDW Standard Deviation 48.9 fL (35.1-46.3)
[2024-10-13 04:50] LABS: BAND PERCENT MAN 6 % (0-8); BASOPHILS ABSOLUTE MAN 0.00 K/mm3 (0.00-0.23); BASOPHILS PERCENT MAN 0 % (0-2); EOSINOPHILS ABSOLUTE MAN 0.00 K/mm3 (0.00-0.68); EOSINOPHILS PERCENT MAN 0 % (0-6); LYMPHOCYTES % ATYPICAL MANUAL 1 % (0-0); LYMPHOCYTES ABSOLUTE MAN 0.51 K/mm3 (0.84-5.20); LYMPHOCYTES PERCENT MAN 1 % (21-46); METAMYELOCYTE ABSOLUTE MAN 0.25 K/mm3 (0.00-0.00); METAMYELOCYTE PERCENT MAN 1 % (0-0); MONOCYTES ABSOLUTE MAN 0.00 K/mm3 (0.16-1.47); MONOCYTES PERCENT MAN 0 % (4-13); MYELOCYTE ABSOLUTE MAN 1.28 K/mm3 (0.00-0.00); MYELOCYTE PERCENT MAN 5 % (0-0); NEUTROPHILS ABSOLUTE MAN 23.55 K/mm3 (1.96-9.15); SEG NEUTROPHILS PERCENT MAN 86 % (41-73)
[2024-10-13 04:55] LABS: Alanine Aminotransfer (ALT/SGP 11.0 U/L (12-78); Albumin, Blood 1.6 g/dL (3.4-5.0); Albumin/Globulin Ratio 0.4 (0.8-1.8); Anion Gap 7.0 mmol/L (3-11); Aspartate Aminotrans (AST/SGOT 15.0 U/L (12-37); Bilirubin, Total 0.7 mg/dL (0.1-1.0); Blood Urea Nitrogen 24.0 mg/dL (8-24); CO2, Blood 31.0 mmol/L (21-32); Calcium, Blood 7.3 mg/dL (8.5-10.1); Chloride, Blood 98.0 mmol/L (98-108); Creatinine, Blood 0.44 mg/dL (0.60-1.20); Globulin, Blood 3.6 g/dL (2.2-4.0); Glucose, Blood 121.0 mg/dL (70-99); Magnesium, Blood 1.7 mg/dL (1.6-2.4); Phosphorus, Blood 2.4 mg/dL (2.5-4.9); Potassium, Blood 4.1 mmol/L (3.5-5.5); Sodium, Blood 132.0 mmol/L (136-145); Total Protein, Blood 5.2 g/dL (6.4-8.2)
--- NOTE | 2024-10-13 06:18 | NUR ---
SHIFT SUMMARY: PT IS DOING WELL AND RESTING IN BED. PT WAS ABLE TO SLEEP PART OF THE NIGHT. PT HAS BEEN IN CONSTANT GENERALIZED PAIN AND HAS BEEN RECEIVING PAIN MEDS PER EMR ORDERS. PT IS STILL NPO, BUT PASSED A BEDSIDE SWALLOW EVAL SO THEY COULD TAKE THEIR 2100 PO MEDICATIONS AND NG TUBE SUCTION WAS PLACED ON PAUSE FOR 2 HOURS AFTER PT RECEIVED THEIR PO MEDS. SPO2 WOULD DROP INTO THE 80'S WHILE PT WAS SLEEPING, THEY WERE PLACED ON O2 @ 2LPM VIA NC AND SPO2 >95%. BP REMAINED STABLE THROUGHOUT THE NIGHT. ODUGLASS CATHTER IN PLACE AND DRAINING TO GRAVITY. ILOSTOMY ON RLQ, SB DRAIN ON L ABDOMEN. PICC LINE IN RUE. PT'S NG TUBE WAS PARTIALLY PULLED OUT IN THE MIDDLE OF THE SHFIT, NG TUBE PUSHED BACK IN, PLACMENT WAS CONFIRMED WITH X-RAY. INTERMITENT SUCTION WAS PAUSED AFTER NG TUBE WAS DISLODGED AND RESTARTED ONCE PLACEMENT WAS CONFIRMED. LINES, CORDS, AND TUBES PLACED OUT OF REACH. CALL LIGHT PLACED WITHIN REACH.
--- NOTE | 2024-10-13 09:00 | NUR ---
ASSUMPTION OF CARE ASSUMPTION OF CARE AT 0700. PT A&Ox4, SLOW TO RESPOND AND SOFT SPOKEN, CALLS AND COMMUNICATES NEEDS APPROPRIATELY. BP STABLE, AFIB 110's, DENIES CP/PRESSURE. SpO2> 92% RA, DENIES SOB. DR. LIANG TO BEDSIDE AT START OF SHIFT TO REMOVE NGT & SB DRAIN, AND CHANGED MIDLINE INCISION DRESSING. DOUGLASS CATH IN PLACE WITH PALE YELLOW URINE OUT. C/O OF GENERALIZED PAIN, REPOSITIONING AND MEDICATING PER EMAR. DISCUSSED PAIN MANAGEMEMT WITH PROVIDER, ORDERS PLACED. DR. LIANG ADVANCED PTs DIET TO CLEARS, PT TOLERATING AT THIS TIME. CALL LIGHT IN REACH, BED IN LOWEST POSITION.
[2024-10-13] MEDS ORDERED: Morphine Sulfate 4 MG/1 ML Injection IV PRN (09:05)
--- NOTE | 2024-10-13 19:12 | NUR ---
SHIFT SUMMARY SEE PREVIOUS NOTE. NO ACUTE CHANGES. BP STABLE, AFIB 110's, DENIES CP/PRESSURE. SpO2> 92% RA, DENIES SOB. SATS DROP TO HIGH 80's AFTER IV PAIN MEDICATION, 2L VIA NC BRINGS SATS BACK TO 90's. MANAGED PAIN PER EMAR. MIDLINE INCISION WITH HEAVY DRAINAGE, DRESSING CHANGED NEEDED PER ORDERS. OSTOMY VERY DARK/DUSKY, DR. LIANG AWARE; SMALL AMOUNT OF BROWN LIQUID OUTPUT. DOUGLASS CATH IN PLACE WITH PALE YELLOW OUTPUT. PT TRANSFERED TO PCU 20 VIA HOSPITAL BED AT APPROXIMATELY 1840 BY THIS RN AND CONTINUED CARE IN PCU. NO OTHER EVENTS, WILL REPORT TO ONCOMING RN.
[2024-10-14 03:19] VITALS: BP 150/88
[2024-10-14 03:55] LABS: Anion Gap 5.0 mmol/L (3-11); Blood Urea Nitrogen 27.0 mg/dL (8-24); CO2, Blood 34.0 mmol/L (21-32); Calcium, Blood 7.4 mg/dL (8.5-10.1); Chloride, Blood 95.0 mmol/L (98-108); Creatinine, Blood 0.43 mg/dL (0.60-1.20); Glucose, Blood 106.0 mg/dL (70-99); Magnesium, Blood 1.5 mg/dL (1.6-2.4); Phosphorus, Blood 2.6 mg/dL (2.5-4.9); Potassium, Blood 4.3 mmol/L (3.5-5.5); Sodium, Blood 130.0 mmol/L (136-145)
--- NOTE | 2024-10-14 04:41 | NUR ---
SHIFT SUMMARY: POD 6 EX LAP ILEOCECECTOMY WITH ILEOSTOMY PATIENT IS A&OX4 BUT IS SOFT SPOKEN/SLOW TO RESPOND TO QUESTIONS BUT ANSWERS APPROPRIATELY. VITALS ARE STABLE AND PATIENT IS CURRENTLY ON HIS CPAP SINCE HE IS SLEEPING INTERMITTENTLY WITH SPO2 >90%. ILEOSTOMY HAD LIQUID BROWN OUTPUT IN OSTOMY BAG WELL NEEDED BURPED DURING THE NIGHT. ABD MIDLINE INCISION AND OLD SB SITE DRESSING ARE C/D/I AT THIS TIME. Q2H TURNS TOLERATED. DOUGLASS DRAINING TO GRAVITY WITH NO KINKS IN TUBING WITH TODD/DARK YELLOW URINE OUTPUT. TPN AND TKO NS FLUIDS RUNNING THROUGH HIS LONA PICC LINE. Q6H CBG CHECKS. PAIN IS MANAGED WITH IV MORPHINE AND FENTANYL PER APR. PATIENT IS LAYING IN BED WITH CALL LIGHT IN REACH.
[2024-10-14] MEDS ORDERED: Magnesium Sulf 2 GM/Water 50ML 50 ML IV ONE (06:30)
--- NOTE | 2024-10-14 08:30 | NUR ---
UPDATE DR. LIANG IN THIS AM AND CHANGED DRESSING TO MIDLINE INCISION. ILEOSTOMY DRESSING NOTED TO BE SOILED. APPLIANCE REMOVED AND NEW APPLIANCE PLACED. STOMA IS DUSKY IN THE CENTER, BUT PINK AROUND THE EDGES. LIQUID BROWN OUTPUT NOTED.
[2024-10-14 08:38] VITALS: BP 140/81
[2024-10-14] MEDS ORDERED: Mag Sulfate 1 GM/D5% 100ML 100 ML IV STA (09:45)
[2024-10-14 11:30] LABS: Hematocrit 29.3 % (37.0-53.0); Hemoglobin 9.8 g/dL (13.5-17.5); Mean Corpuscular HGB Conc 33.4 g/dL (31.5-36.5); Mean Corpuscular Volume 85 fL (80-100); NRBC ABSOLUTE 0.03 K/mm3 (0.00-0.02); NRBC Auto 0.1 /100 WBC (0.0-0.2); Platelet Count 301 K/mm3 (150-400); RDW Coefficient Variation 16.9 % (11.7-14.2); RDW Standard Deviation 48.9 fL (35.1-46.3)
[2024-10-14 11:49] LABS: BAND PERCENT MAN 5 % (0-8); BASOPHILS ABSOLUTE MAN 0.00 K/mm3 (0.00-0.23); BASOPHILS PERCENT MAN 0 % (0-2); EOSINOPHILS ABSOLUTE MAN 0.00 K/mm3 (0.00-0.68); EOSINOPHILS PERCENT MAN 0 % (0-6); LYMPHOCYTES ABSOLUTE MAN 0.56 K/mm3 (0.84-5.20); LYMPHOCYTES PERCENT MAN 2 % (21-46); METAMYELOCYTE ABSOLUTE MAN 1.13 K/mm3 (0.00-0.00); METAMYELOCYTE PERCENT MAN 4 % (0-0); MONOCYTES ABSOLUTE MAN 0.00 K/mm3 (0.16-1.47); MONOCYTES PERCENT MAN 0 % (4-13); MYELOCYTE ABSOLUTE MAN 0.28 K/mm3 (0.00-0.00); MYELOCYTE PERCENT MAN 1 % (0-0); NEUTROPHILS ABSOLUTE MAN 26.31 K/mm3 (1.96-9.15); SEG NEUTROPHILS PERCENT MAN 88 % (41-73)
[2024-10-14 12:38] VITALS: BP 128/78
--- NOTE | 2024-10-14 14:53 | NUR ---
UPDATE BED ASSIGNMENT PROVIDED ON MEDICAL FLOOR. REPORT GIVEN TO FIGUEROA LIGHT. PT TAKEN UP VIA BED WITH ALL OF HIS BELONGINGS.
[2024-10-14 15:01] VITALS: BP 130/71
--- NOTE | 2024-10-14 15:20 | NUR ---
PT TRANSFERED FROM PCU 20 TO RM 364. PT TRANSPORTED BY BED AND REMAINED IN BED. PT A/Ox2 STATES HE IS IN HOSPITAL BUT BELIEVES HE IS IN [place]. PT REPORTS 8/10 PAIN TO ABD - TREATED PER EMAR. UPPER LOBES OF LUNG CLEAR/DIMINISHED. DRESSINGS TO ABD C/D/I. DOUGLASS PATENT AND DRAINING YELLOW URINE. ILEOSTOMY DRAINING SOFT/LIQUID BROWN STOOL, MINIMAL GAS PRESENT AT THIS TIME. STOMA DUSKY IN COLOR - SODER AWARE. ABX STARTED PER EMAR. PICC LINE TO [facility]. ICE WATER PROVIDED. ORIENTED TO CALL SYSTEM. PT CURRENTLY RESTING IN BED WITH CALL LIGHT WITHIN REACH AND BED IN LOWEST POSITION.
[2024-10-14] MEDS ORDERED: PARENTERAL ELECTOLYTES POTASSIUM PHOSPHATE DIBASIC MM MULTIVITAMINS ZINC IV SCH (17:00)
[2024-10-14] MEDS ORDERED: [UNRECOGNIZED DRUG - OTHER] IV SCH (17:00)
--- NOTE | 2024-10-14 17:37 | NUR ---
NO ACUTE CHANGES SINCE TRANSFER FROM PCU. NEW BAG TPN STARTED WITH NEW TUBING. TREATED FOR PAIN PER EMAR. DOUGLASS PATENT AND DRAINING. OSTOMY INTACT WITH MINIMAL - EMPTYING NOT REQUIRED, OSTOMY BURPED. PT CURRENTY RESTING IN BED WITH BED IN LOWEST POSITION AND CALL LIGHT WITHIN REACH, CALLS APPROPRIATELY.
[2024-10-14 19:21] VITALS: BP 131/64
[2024-10-15] VITALS (7 sets, daily range): BP systolic 133–154; BP diastolic 66–79
[2024-10-15 05:06] LABS: BASOPHILS ABSOLUTE AUTO 0.06 K/mm3 (0.00-0.23); BASOPHILS PERCENT AUTO 0 % (0-2); EOSINOPHILS ABSOLUTE AUTO 0.01 K/mm3 (0.00-0.68); EOSINOPHILS PERCENT AUTO 0 % (0-6); Hematocrit 27.2 % (37.0-53.0); Hemoglobin 9.2 g/dL (13.5-17.5); IMMATURE GRAN ABSOLUTE AUTO 1.47 K/mm3 (0.00-0.10); IMMATURE GRAN PERCENT AUTO 6 % (0-1); LYMPHOCYTES ABSOLUTE AUTO 1.50 K/mm3 (0.84-5.20); LYMPHOCYTES PERCENT AUTO 6 % (21-46); MONOCYTES ABSOLUTE AUTO 0.70 K/mm3 (0.16-1.47); MONOCYTES PERCENT AUTO 3 % (4-13); Mean Corpuscular HGB Conc 33.8 g/dL (31.5-36.5); Mean Corpuscular Volume 84 fL (80-100); NEUTROPHILS ABSOLUTE AUTO 20.75 K/mm3 (1.96-9.15); NEUTROPHILS PERCENT AUTO 85 % (41-73); NRBC ABSOLUTE 0.00 K/mm3 (0.00-0.02); NRBC Auto 0.0 /100 WBC (0.0-0.2); Platelet Count 300 K/mm3 (150-400); RDW Coefficient Variation 17.1 % (11.7-14.2); RDW Standard Deviation 49.2 fL (35.1-46.3)
[2024-10-15 05:29] LABS: Anion Gap 8.0 mmol/L (3-11); Blood Urea Nitrogen 23.0 mg/dL (8-24); CO2, Blood 32.0 mmol/L (21-32); Calcium, Blood 7.5 mg/dL (8.5-10.1); Chloride, Blood 98.0 mmol/L (98-108); Creatinine, Blood 0.4 mg/dL (0.60-1.20); Glucose, Blood 121.0 mg/dL (70-99); Magnesium, Blood 1.9 mg/dL (1.6-2.4); Phosphorus, Blood 2.4 mg/dL (2.5-4.9); Potassium, Blood 4.5 mmol/L (3.5-5.5); Sodium, Blood 133.0 mmol/L (136-145)
[2024-10-15 05:31] LABS: BAND PERCENT MAN 1 % (0-8); BASOPHILS ABSOLUTE MAN 0.00 K/mm3 (0.00-0.23); BASOPHILS PERCENT MAN 0 % (0-2); EOSINOPHILS ABSOLUTE MAN 0.00 K/mm3 (0.00-0.68); EOSINOPHILS PERCENT MAN 0 % (0-6); LYMPHOCYTES ABSOLUTE MAN 1.22 K/mm3 (0.84-5.20); LYMPHOCYTES PERCENT MAN 5 % (21-46); METAMYELOCYTE ABSOLUTE MAN 1.22 K/mm3 (0.00-0.00); METAMYELOCYTE PERCENT MAN 5 % (0-0); MONOCYTES ABSOLUTE MAN 0.48 K/mm3 (0.16-1.47); MONOCYTES PERCENT MAN 2 % (4-13); MYELOCYTE ABSOLUTE MAN 0.24 K/mm3 (0.00-0.00); MYELOCYTE PERCENT MAN 1 % (0-0); NEUTROPHILS ABSOLUTE MAN 21.30 K/mm3 (1.96-9.15); SEG NEUTROPHILS PERCENT MAN 86 % (41-73)
--- NOTE | 2024-10-15 06:25 | NUR ---
PATIENT HAS CONFUSION ABOUT WHEN AND WHERE AT NIGHT NEEDING FREQUENT REORIENTATON . ON TELE PATIENT HR FREQUENTLY AND BRIEFLY CLIMBES ABOVE 150. PATIENT HAD RUN OF VT X7 DR NOTIFIED AND NEW ORDERS RECEIVED. ILEOSTOMY STOMA LOOKS DUSKY, PRODUCING LOOSE BROWN STOOL. DOUGLASS DRAINING WELL WITH GOOD YELLOW URINE PRODCTION. DEHIS IN MIDLINE INCISSION IS DRAINING REDDISH PINK CLEAR LIQUID DRESSING OF GAUZE AND TAPE CHANGED. NEW MEPELEX DRESSING APPLIED TO SKIN TEAR UNDER SCROTUM. PATIENT C/O BACK PAIN MANAGED WITH PRN'S. TRIPPLE LUMAN PICC FLUSHES AND DRAWS WELL. RUNNING TPN AT 102HR.
--- NOTE | 2024-10-15 07:39 | NUR ---
ASSUMPTION OF CARE: THIS RN ASSUMED CARE OF PATIENT. AWAKE DURING SHIFT CHANGE REPORT. LYING IN BED c HOB ELEVATED. ON LIFT SHEET. BREATHING EVEN AND UNLABORED c ROOM AIR. MAINTAINING SPO2 >92% c RA PER CONTINUOUS PULSE OX. CPAP @ BEDSIDE. DOUGLASS PATENT AND DRAINING YELLOW URINE TO GRAVITY. OSTOMY PATENT c DUSKY STOMA (PROVIDER AWARE) AND DRAIING LIQUID BROWN STOOL. MOST RECENT TELE READING @ ACC MONITOR SHOWS SINUS RHYTHM c PAIRED PVCs @ 95bpm. BED IN LOWEST POSITION. CALL LIGHT WITHIN REACH. ACUTE NEEDS MET.
--- NOTE | 2024-10-15 09:37 | NUR ---
CALL FROM TELE: PT SUSTAINING HR IN 150s. IRREGULAR RHYTHM ON AUSCULTATION. BP 140s/70s.
--- NOTE | 2024-10-15 11:38 | NUR ---
DR AMARO TO BEDSIDE FOR ROUNDING.
--- NOTE | 2024-10-15 14:05 | NUR ---
DR LIANG AND MED STUDENT TO BEDSIDE FOR ROUNDING. MIDLINE DRESSING CHANGE. MINIMAL DRAINAGE. NO C/O ABD PAIN. OKAY TO ADVANCE DIET TOLERATED TO REGULAR FOODS AND COMPLETE TPN ORDER ONCE THIS BAG IS COMPLETE. DR. AMARO NOTIFIED.
[2024-10-15] MEDS ORDERED: Insulin Regular 100 UNIT/ML 10ML Vial SC SCH (16:30)
--- NOTE | 2024-10-15 18:01 | NUR ---
END OF SHIFT SUMMARY: A&Ox2-3. DOES NOT UTILIZE CALL LIGHT SYSTEM AND CALLS INTO HALLWAY FOR HELP. BEDBOUND c MECHANICAL LIFT FOR TRANSFERS. MEDS WHOLE c FLUIDS. OSTOMY PATENT AND DRAINING DARK BROWN, LIQUID, FROTHY STOOL WITH PINKENING STOMA. DOUGLASS PATENT AND DRAINING YELLOW URINE TO GRAVITY. NO PAIN AT BEGINNING OF SHIFT THAT HAS SINCE RESOLVED. DR LIANG TO BEDSIDE. MIDLINE DRESSING CHANGED c MINIMAL DRAINAGE PRESENT. ORDERS TO DC TPN AND ADVANCE DIET TOLERATED. GLUCOSE CHECKS CHANGED TO AC/HS. SEEN BY STx. ANTICIPATE DC TO SNF. BED IN LOWEST POSITION, CALL LIGHT WITHIN REACH, ALL NEEDS MET. REPORT TO ONCOMING NURSE.
[2024-10-15] MEDS ORDERED: Albuterol 2.5 MG/3 ML VIAL INH PRN (20:10)
[2024-10-16] VITALS (9 sets, daily range): BP systolic 97–142; BP diastolic 67–98
[2024-10-16 04:54] LABS: BASOPHILS ABSOLUTE AUTO 0.04 K/mm3 (0.00-0.23); BASOPHILS PERCENT AUTO 0 % (0-2); EOSINOPHILS ABSOLUTE AUTO 0.01 K/mm3 (0.00-0.68); EOSINOPHILS PERCENT AUTO 0 % (0-6); Hematocrit 28.8 % (37.0-53.0); Hemoglobin 9.4 g/dL (13.5-17.5); IMMATURE GRAN ABSOLUTE AUTO 0.86 K/mm3 (0.00-0.10); IMMATURE GRAN PERCENT AUTO 4 % (0-1); LYMPHOCYTES ABSOLUTE AUTO 1.60 K/mm3 (0.84-5.20); LYMPHOCYTES PERCENT AUTO 8 % (21-46); MONOCYTES ABSOLUTE AUTO 0.68 K/mm3 (0.16-1.47); MONOCYTES PERCENT AUTO 4 % (4-13); Mean Corpuscular HGB Conc 32.6 g/dL (31.5-36.5); Mean Corpuscular Volume 86 fL (80-100); NEUTROPHILS ABSOLUTE AUTO 16.30 K/mm3 (1.96-9.15); NEUTROPHILS PERCENT AUTO 84 % (41-73); NRBC ABSOLUTE 0.03 K/mm3 (0.00-0.02); NRBC Auto 0.2 /100 WBC (0.0-0.2); Platelet Count 313 K/mm3 (150-400); RDW Coefficient Variation 17.3 % (11.7-14.2); RDW Standard Deviation 50.1 fL (35.1-46.3)
[2024-10-16 05:23] LABS: Magnesium, Blood 1.7 mg/dL (1.6-2.4)
[2024-10-16 05:24] LABS: Anion Gap 8.0 mmol/L (3-11); Blood Urea Nitrogen 22.0 mg/dL (8-24); CO2, Blood 31.0 mmol/L (21-32); Calcium, Blood 7.8 mg/dL (8.5-10.1); Chloride, Blood 99.0 mmol/L (98-108); Creatinine, Blood 0.46 mg/dL (0.60-1.20); Glucose, Blood 96.0 mg/dL (70-99); Phosphorus, Blood 2.6 mg/dL (2.5-4.9); Potassium, Blood 4.5 mmol/L (3.5-5.5); Sodium, Blood 133.0 mmol/L (136-145)
--- NOTE | 2024-10-16 06:22 | NUR ---
PATIENT CONFUSED TONIGHT. 2 PERSON ASSIST WITH BEDTURNS. REFUSES CPAP. SEVERAL EPISODES OF SVT LASTING LESS THEN 30SEC. PULLED ILLEOSTEOMY- APPLIANCE REPLACED. 4 LTRS OUT DOUGLASS. 300 OUT STOMA MORE SOLID THEN YESTERDAY. PATIENT CONTINUE TO HAVE 2+ GENERALIZED EDEMA.
[2024-10-16] MEDS ORDERED: Metoprolol Tartrate 1 MG/ML 5 ML VIAL IV PRN ×2 (13:45→17:55)
--- NOTE | 2024-10-16 16:45 | NUR ---
SHIFT SUMMARY EARLY THIS SHIFT, PT AOX4, SHIFT WENT ON, PT BECAME INCREASINGLY CONFUSED. PT THOUGHT HE WAS "AT THE COURT HOUSE", AND WHEN ASKED THE DATE, PT THOUGHT IT WAS "March". PT HAS BEEN TALKING ABOUT GETTING OUT OF BED, THIS RN REINFORCING THAT HE CAN NOT BEAR WEIGHT PER FOUNDER AND CHIEF TECHNICAL OFFICER. PT REPORTS HAVING TO "GO PEE", REINFORCING MULTIPLE TIMES THAT PT HAS A CATHETER. EMPTIED ILIOSTOMY, WHICH THIS RN DID CHANGE ONCE TODAY. MIDLINE DRESSING WAS CHANGED TODAY WELL BY . TOLERATING MEDICATIONS. BED IN LOWEST POSITION, CALL LIGHT T[place]AN [place].
--- NOTE | 2024-10-16 18:05 | NUR ---
TACHYCARDIA NOTIFIED BY BEDSIDE RN THAT PATIENT HR SUSTAINING ABOVE 150 AGAIN. CALL TO RATER ASSOCIATE KRYSTYNA, NEW ORDERS FOR IV LOPRESSOR Q2 FOR HR GREATER THAN 120. LOPRESSOR 5MG GIVE TO GOOD EFFECT AT THIS TIME. HR AFIB 100-110.
[2024-10-17 04:43] VITALS: BP 113/84
[2024-10-17 07:00] LABS: BASOPHILS ABSOLUTE AUTO 0.04 K/mm3 (0.00-0.23); BASOPHILS PERCENT AUTO 0 % (0-2); EOSINOPHILS ABSOLUTE AUTO 0.00 K/mm3 (0.00-0.68); EOSINOPHILS PERCENT AUTO 0 % (0-6); Hematocrit 29.4 % (37.0-53.0); Hemoglobin 9.8 g/dL (13.5-17.5); IMMATURE GRAN ABSOLUTE AUTO 0.47 K/mm3 (0.00-0.10); IMMATURE GRAN PERCENT AUTO 2 % (0-1); LYMPHOCYTES ABSOLUTE AUTO 1.57 K/mm3 (0.84-5.20); LYMPHOCYTES PERCENT AUTO 7 % (21-46); MONOCYTES ABSOLUTE AUTO 0.86 K/mm3 (0.16-1.47); MONOCYTES PERCENT AUTO 4 % (4-13); Mean Corpuscular HGB Conc 33.3 g/dL (31.5-36.5); Mean Corpuscular Volume 86 fL (80-100); NEUTROPHILS ABSOLUTE AUTO 19.52 K/mm3 (1.96-9.15); NEUTROPHILS PERCENT AUTO 87 % (41-73); NRBC ABSOLUTE 0.00 K/mm3 (0.00-0.02); NRBC Auto 0.0 /100 WBC (0.0-0.2); Platelet Count 305 K/mm3 (150-400); RDW Coefficient Variation 17.7 % (11.7-14.2); RDW Standard Deviation 50.3 fL (35.1-46.3)
[2024-10-17 07:16] LABS: Anion Gap 8.0 mmol/L (3-11); Blood Urea Nitrogen 19.0 mg/dL (8-24); CO2, Blood 30.0 mmol/L (21-32); Calcium, Blood 7.6 mg/dL (8.5-10.1); Chloride, Blood 99.0 mmol/L (98-108); Creatinine, Blood 0.47 mg/dL (0.60-1.20); Glucose, Blood 94.0 mg/dL (70-99); Potassium, Blood 4.1 mmol/L (3.5-5.5); Sodium, Blood 133.0 mmol/L (136-145)
[2024-10-17 07:49] VITALS: BP 104/59
--- NOTE | 2024-10-17 08:27 | NUR ---
pt laying in bed, awake, cooperative with care, follows commands, only answers in one word answers, lungs are dim t/o, on r/a, audible wet sounds in bronchial area, took po meds without diff, resp even and unlabored, no cough noted, hrr, distant, goes up to the 150's for brief times, picc line to ace, infusing ns tko, dressing intact, btx4, abd flat soft nontender, illiostomy in place draing soft material, is leaking, being changed at this time, peacock cath draining clear dutch urine, skin has mepilex to coccyx for redness, yeast under folds, and mid line surgical incision, with dressing over that is c/d/i, pt not moving himself too much, and is a two person to turn, lift to get oob, gwen, call light in reach.
[2024-10-17 13:12] VITALS: BP 119/72
--- NOTE | 2024-10-17 13:23 | NUR ---
SHASHI HAD EPISODE OF SINUS TACH SUSTAINED FOR 8 MINUTES OF >150. VEGAL MANEUVERS WERE USED AND PATIENT IS NOW SUSTAINED AT 90 HEART RATE. PATIENT WAS NEVER SYMPTOMATIC. NOTIFIED AND UPDATED VITAL SIGNS ENTERED IN CHART. NO NEW ORDERS RECEIVED.
[2024-10-17 17:26] VITALS: BP 104/60
--- NOTE | 2024-10-17 19:22 | NUR ---
pt had an xray and ct of abd today, got him up to chair with lift after ct was done, he has been pretty oriented today but flat, this evening he is very confused thought he was in a different place and wanted to take a shower, he was assisted back to bed with lift, illiostomy was changed several times today due to leaking, doesn't make much effort to move himself, call light in reach.
[2024-10-17 20:09] VITALS: BP 122/86
[2024-10-17 23:57] VITALS: BP 106/54
[2024-10-18 04:28] VITALS: BP 113/68
[2024-10-18 08:06] VITALS: BP 116/71
[2024-10-18 08:14] LABS: BASOPHILS ABSOLUTE AUTO 0.04 K/mm3 (0.00-0.23); BASOPHILS PERCENT AUTO 0 % (0-2); EOSINOPHILS ABSOLUTE AUTO 0.02 K/mm3 (0.00-0.68); EOSINOPHILS PERCENT AUTO 0 % (0-6); Hematocrit 29.1 % (37.0-53.0); Hemoglobin 9.7 g/dL (13.5-17.5); IMMATURE GRAN ABSOLUTE AUTO 0.27 K/mm3 (0.00-0.10); IMMATURE GRAN PERCENT AUTO 1 % (0-1); LYMPHOCYTES ABSOLUTE AUTO 1.48 K/mm3 (0.84-5.20); LYMPHOCYTES PERCENT AUTO 8 % (21-46); MONOCYTES ABSOLUTE AUTO 0.63 K/mm3 (0.16-1.47); MONOCYTES PERCENT AUTO 3 % (4-13); Mean Corpuscular HGB Conc 33.3 g/dL (31.5-36.5); Mean Corpuscular Volume 87 fL (80-100); NEUTROPHILS ABSOLUTE AUTO 16.85 K/mm3 (1.96-9.15); NEUTROPHILS PERCENT AUTO 87 % (41-73); NRBC ABSOLUTE 0.00 K/mm3 (0.00-0.02); NRBC Auto 0.0 /100 WBC (0.0-0.2); Platelet Count 323 K/mm3 (150-400); RDW Coefficient Variation 18.3 % (11.7-14.2); RDW Standard Deviation 51.9 fL (35.1-46.3)
[2024-10-18 08:38] LABS: Anion Gap 6 mmol/L (3-11); Blood Urea Nitrogen 16 mg/dL (8-24); CO2, Blood 30 mmol/L (21-32); Calcium, Blood 7.8 mg/dL (8.5-10.1); Chloride, Blood 100 mmol/L (98-108); Creatinine, Blood 0.48 mg/dL (0.60-1.20); Glucose, Blood 98 mg/dL (70-99); Potassium, Blood 4.1 mmol/L (3.5-5.5); Sodium, Blood 132 mmol/L (136-145); Triglycerides 94 mg/dL (30-160)
--- NOTE | 2024-10-18 09:00 | NUR ---
pt laying in bed, alert to self, hollers out and can be confused, easlily redrected, follows commands, lungs are clear in upper patel very dim in bases, resp even and unlabored, occ dry cough, on r/a, hrr, 2+ edema noted to b/l le, ppp+1 cap refill <3 sec, vs stable, afebrile, picc line to alice site is clear and patent, btx4, abd flat soft, illiostomy to r quad, draing soft matter, leaking a bit, mid line dressing, this was changed, incision is clean and dry, no s/s of infection, excoriated under panus, and scrotum, moves arms a bit, but pretty lethargic, is a two person to turn, lift to get in a chair, gwen, call light in reach.
[2024-10-18 11:55] VITALS: BP 93/61
[2024-10-18 16:51] VITALS: BP 123/46
[2024-10-18 20:20] VITALS: BP 87/66
[2024-10-18] MEDS ORDERED: Miconazole Nitrate 2% 85 GM PWD TOP SCH (21:00)
[2024-10-18 23:35] VITALS: BP 98/55
[2024-10-19 04:07] VITALS: BP 124/102
[2024-10-19 04:56] LABS: BASOPHILS ABSOLUTE AUTO 0.04 K/mm3 (0.00-0.23); BASOPHILS PERCENT AUTO 0 % (0-2); EOSINOPHILS ABSOLUTE AUTO 0.04 K/mm3 (0.00-0.68); EOSINOPHILS PERCENT AUTO 0 % (0-6); Hematocrit 27.6 % (37.0-53.0); Hemoglobin 8.9 g/dL (13.5-17.5); IMMATURE GRAN ABSOLUTE AUTO 0.20 K/mm3 (0.00-0.10); IMMATURE GRAN PERCENT AUTO 1 % (0-1); LYMPHOCYTES ABSOLUTE AUTO 1.27 K/mm3 (0.84-5.20); LYMPHOCYTES PERCENT AUTO 9 % (21-46); MONOCYTES ABSOLUTE AUTO 0.55 K/mm3 (0.16-1.47); MONOCYTES PERCENT AUTO 4 % (4-13); Mean Corpuscular HGB Conc 32.2 g/dL (31.5-36.5); Mean Corpuscular Volume 88 fL (80-100); NEUTROPHILS ABSOLUTE AUTO 12.61 K/mm3 (1.96-9.15); NEUTROPHILS PERCENT AUTO 86 % (41-73); NRBC ABSOLUTE 0.00 K/mm3 (0.00-0.02); NRBC Auto 0.0 /100 WBC (0.0-0.2); Platelet Count 270 K/mm3 (150-400); RDW Coefficient Variation 18.4 % (11.7-14.2); RDW Standard Deviation 54.1 fL (35.1-46.3)
[2024-10-19 05:17] LABS: Anion Gap 8.0 mmol/L (3-11); Blood Urea Nitrogen 12.0 mg/dL (8-24); CO2, Blood 27.0 mmol/L (21-32); Calcium, Blood 7.8 mg/dL (8.5-10.1); Chloride, Blood 101.0 mmol/L (98-108); Creatinine, Blood 0.51 mg/dL (0.60-1.20); Glucose, Blood 98.0 mg/dL (70-99); Potassium, Blood 4.0 mmol/L (3.5-5.5); Sodium, Blood 132.0 mmol/L (136-145)
--- NOTE | 2024-10-19 07:09 | NUR ---
SHIFT SUMMARY; PATIENT WAS AWAKE MOST OFF THE NIGHT, REMOVING TELE WIRES. MEDICATED FOR PAIN WITH MS BY RELIEF RN. TELE ST 100'S BUT HAD A RUN OF SVT AT 2230 150'S. GAVE THE MIDNIGHT METOPROLOL ALITTLE EARLY. HAD TO REPLLACE DRESSING ON OSTOMY . CHANGED MIDLINE DRESSSING ALSO. ORAL FLUIDS ENCOURAGED.
[2024-10-19 08:27] VITALS: BP 112/64
[2024-10-19 15:10] VITALS: BP 152/98
[2024-10-19 19:33] VITALS: BP 130/61
[2024-10-19 19:43] VITALS: BP 152/98
--- NOTE | 2024-10-19 19:47 | NUR ---
THIS CHARGE NURSE SUMMONED TO ROOM TO FIND PATIENT LAYING ON FLOOR AFTER A UNWITNESSED FALL. SOME BLOOD NOTED ON FLOOR NEAR PT'S HEAD. PT DENIES ANY INJURIES AT THIS TIME. PRIMARY RN DOES ASSESSMENT AND NOTED PT SAFE TO BE LIFTED BACK TO BED USING CEILING LIFT. 6 STAFF ASSIST IN SAFE TRANSFER. PT STATES THAT HE WAS "REACHING FOR SOMETHING WHEN HE FELL" BED ALARM TO BE PLACED ACTIVE ON BED AND VERBAL REMINDERS TO CALL FOR ASSIST. PRIMARY NURSE CALLS HOSPITALISTS. ORDERS WERE RECEIVED.
--- NOTE | 2024-10-19 20:07 | NUR ---
NOTIFIED BROTHER, TASHA CLIFFORD OF UNWITNESSED FALL. MR. CLIFFORD VERBALIZED UNDERSTANDING OF PLAN OF CARE, ALL QUESTIONS ANSWERED. ENCOURAGED RETURN CALL WITH ANY QUESTIONS OR CONCERNS.
--- NOTE | 2024-10-19 21:52 | NUR ---
PT DECLINED TO GIVE PAIN SCALE VALUE. NODDED HEAD WHEN ASKED IF PAIN DECREASED. CLOSES EYES IMMEDIATELY AFTER ANSWERING QUESTIONS. ABLE TO TELL ME HIS BROTHER'S NAME (TASHA) AND HIS LAST NAME (SOX). MONITORING CLOSELY. PUPILS ROUND, EQUAL, REACTIVE.
[2024-10-19 21:59] VITALS: BP 116/63
--- NOTE | 2024-10-19 23:24 | NUR ---
PT INTERACTING AT BASELINE NOW. DENIES PAIN. NOTIFIED PT OF UNREMARKABLE CT RESULTS.
[2024-10-20] VITALS (12 sets, daily range): BP systolic 91–147; BP diastolic 44–103
[2024-10-20 05:10] LABS: Anion Gap 8.0 mmol/L (3-11); Blood Urea Nitrogen 13.0 mg/dL (8-24); CO2, Blood 24.0 mmol/L (21-32); Calcium, Blood 7.5 mg/dL (8.5-10.1); Chloride, Blood 103.0 mmol/L (98-108); Creatinine, Blood 0.48 mg/dL (0.60-1.20); Glucose, Blood 92.0 mg/dL (70-99); Potassium, Blood 4.0 mmol/L (3.5-5.5); Sodium, Blood 131.0 mmol/L (136-145)
--- NOTE | 2024-10-20 06:27 | NUR ---
SHIFT SUMMARY PT A/Ox2-3, DISORIENTED TO TIME, DISORIENTED TO SITUATION AT TIMES. VARIABLE HR 90s-150s, OTHER VSS ON RA. UNWITNESSED FALL AT SHIFT CHANGE, PT REPORTS WANTING TO SOCIAL MEDIA CAMPAIGN MANAGER "A SMOCK" FROM THE FLOOR. APPEARED TO HAVE TIPPED FORWARD, STRIKING HEAD, LEGS REMAINED IN THE BED. MD CONTACTED, CT SCAN OF HEAD AND CERVICAL SPINE RETURNED WITH UNREMARKABLE RESULTS. PT REPORTS 10/10 NOSE OR NECK PAIN, PRN MORPHINE EFFECTIVE. PT CALLS OUT FOR "TASHA", REORIENTATION AND EDUCATION RES COUNSELOR LIGHT USE PROVIDED. PLEASE SEE NEW PHOTOS OF OSTOMY IN CHART; 1.5CM X 0.75CM OVAL SPACE ALONGSIDE STOMA. APPEARS THAT DRAINAGE SEEPS INTO FISSURE, POSSIBLE EROSION. REPLACED APPLIANCE DUE TO SIGNIFICANT LEAK FROM THE AREA. CONCERNED APPLIANCE DOES NOT EFFECTIVELY SEAL DUE TO THE LOSS OF SKIN NEAR THE LOWER EDGE OF STOMA. SAFETY PRECAUTIONS IN PLACE, TAB ALARM NEEDED IF UP TO CHAIR.
[2024-10-20 07:05] LABS: BASOPHILS ABSOLUTE AUTO 0.05 K/mm3 (0.00-0.23); BASOPHILS PERCENT AUTO 0 % (0-2); EOSINOPHILS ABSOLUTE AUTO 0.03 K/mm3 (0.00-0.68); EOSINOPHILS PERCENT AUTO 0 % (0-6); Hematocrit 28.1 % (37.0-53.0); Hemoglobin 9.3 g/dL (13.5-17.5); IMMATURE GRAN ABSOLUTE AUTO 0.15 K/mm3 (0.00-0.10); IMMATURE GRAN PERCENT AUTO 1 % (0-1); LYMPHOCYTES ABSOLUTE AUTO 1.15 K/mm3 (0.84-5.20); LYMPHOCYTES PERCENT AUTO 9 % (21-46); MONOCYTES ABSOLUTE AUTO 0.41 K/mm3 (0.16-1.47); MONOCYTES PERCENT AUTO 3 % (4-13); Mean Corpuscular HGB Conc 33.1 g/dL (31.5-36.5); Mean Corpuscular Volume 89 fL (80-100); NEUTROPHILS ABSOLUTE AUTO 10.52 K/mm3 (1.96-9.15); NEUTROPHILS PERCENT AUTO 86 % (41-73); NRBC ABSOLUTE 0.00 K/mm3 (0.00-0.02); NRBC Auto 0.0 /100 WBC (0.0-0.2); Platelet Count 305 K/mm3 (150-400); RDW Coefficient Variation 18.6 % (11.7-14.2); RDW Standard Deviation 57.8 fL (35.1-46.3)
--- NOTE | 2024-10-20 08:46 | NUR ---
RN AND TUBE TURNER TRANSFERRED THE PATIENT FROM THE BED TO CHAIR VIA LIFT. ONCE TO THE CHAIR, THE RN NOTICED PURULENT DRAINAGE POURING FROM THE PATIENT'S MIDLINE DRESSING. RN REMOVED THE DRESSING TO EXPOSE THE YASHIRA AND SAW THAT THE DRAINIAGE WAS COMING FROM BETWEEN TWO STABLES ON THE LOWER PART OF HE INSCISION. RN CALLED DR. CHUNG WHO IS MEDICAL RECORDS COORDINATOR AND EXPLAINED THE SITUATION. RN ALSO EXPLAINED THAT THE PATIENT HAS SOME SORT OF SEPARTION BETWEEN THE ILEOSTOMY AND THE SURROUNDING SKIN AND THAT THE NIGHT RN STATED THAT STOOL APPEARED TO HAVE BEEN IN THIS CREVICE. RN ASKED IF HE PATIENT COULD EAT HIS BREAKFAST OR IF DR. CHUNG WANTED HIM NPO, AND HE SAID THE PATIENT COULD EAT. DR. CHUNG SAID HE WILL LOOK INTO THIS PATIENT AND NEW FINIDINGS AND SEE THE PATIENT TODAY. WILL CONTINUE TO MONITOR. THE MIDLINE IS DESSED WITH 4X4 GAUZE AND TAPE.
--- NOTE | 2024-10-20 14:24 | NUR ---
RN NOTIFIED BY PCU SALON/SPA MANAGER THAT THE PATIENT HAD A 10 BEAT RUN OF VTACH THEN CAME OUT OF IT WITH A RATE OF 90 BPM. RN WENT TO THE BEDSIDE TO MONITOR THE PATIENT. HE COMPLAINS OF FEELING WARM AND BUTTOCKS PAIN. VITALS TAKEN WHICH REVEALED A BP OF 91/55 (66) AND HR 88 BPM INITIALLY. PATIENT WAS ENCOURAGED TO SIT UP, DRINK SOME WATER AND A REPEAT BP WAS 110/[address] AMARO WAS NOTIFIED BY TELEPHONE AND AN ORDER FOR A MAG LEVEL AND TO CALL HER IF THE RESULT IS LOW. WILL CONTINUE TO MONITOR
[2024-10-20] MEDS ORDERED: Magnesium Sulf 2 GM/Water 50ML 50 ML IV ONE (14:50)
--- NOTE | 2024-10-20 15:56 | NUR ---
OSTOMY APPLIANCE CHANGED BECAUSE IT WAS LEAKING. SKIN CLEANSED. FISTULA CLEANSED WITH STERILE WATER AND AN AQUACEL DRESSING PLACED OVER IT TO PROTECT FROM STOOL.
--- NOTE | 2024-10-20 17:50 | NUR ---
PATIENT IS ALERT AND ORINTED TO PERSON AND PLACE. HE YELLS OUT. HE CAN MAKE SOME NEEDS KNOWN. TELEMERY IN PLACE HR 90 BPM AT THIS TIME. ON RA. ILEOSTOMY, APPLIANCE CHANGED TWICE TODAY. PICC DRAWS, LABS DRAWN HIS AFTERNOON. MIDLINE INSCISION OPENED BY DR. CHUGN WITH NEW ORDERS. PATIENT C/O NECK PAIN, MEDICATED PER EMAR. REPOSITIONED Q2H WITH PILLOWS. ENCOURAGED TO DRINK WATER THIS SHIFT,WITH A TOTAL OF 1,237 ML SO FAR THIS SHIFT. DOUGLASS IN PLACE AND DRAINING DARK YELLOW URINE. WILL CONINUE TO MONITOR
[2024-10-21 04:15] VITALS: BP 118/57
[2024-10-21 05:11] LABS: BASOPHILS ABSOLUTE AUTO 0.04 K/mm3 (0.00-0.23); BASOPHILS PERCENT AUTO 1 % (0-2); EOSINOPHILS ABSOLUTE AUTO 0.07 K/mm3 (0.00-0.68); EOSINOPHILS PERCENT AUTO 1 % (0-6); Hematocrit 24.3 % (37.0-53.0); Hemoglobin 7.8 g/dL (13.5-17.5); IMMATURE GRAN ABSOLUTE AUTO 0.07 K/mm3 (0.00-0.10); IMMATURE GRAN PERCENT AUTO 1 % (0-1); LYMPHOCYTES ABSOLUTE AUTO 0.97 K/mm3 (0.84-5.20); LYMPHOCYTES PERCENT AUTO 11 % (21-46); MONOCYTES ABSOLUTE AUTO 0.32 K/mm3 (0.16-1.47); MONOCYTES PERCENT AUTO 4 % (4-13); Mean Corpuscular HGB Conc 32.1 g/dL (31.5-36.5); Mean Corpuscular Volume 89 fL (80-100); NEUTROPHILS ABSOLUTE AUTO 7.10 K/mm3 (1.96-9.15); NEUTROPHILS PERCENT AUTO 83 % (41-73); NRBC ABSOLUTE 0.00 K/mm3 (0.00-0.02); NRBC Auto 0.0 /100 WBC (0.0-0.2); Platelet Count 262 K/mm3 (150-400); RDW Coefficient Variation 18.7 % (11.7-14.2); RDW Standard Deviation 58.5 fL (35.1-46.3)
[2024-10-21 05:31] LABS: Anion Gap 8.0 mmol/L (3-11); Blood Urea Nitrogen 10.0 mg/dL (8-24); CO2, Blood 27.0 mmol/L (21-32); Calcium, Blood 7.5 mg/dL (8.5-10.1); Chloride, Blood 103.0 mmol/L (98-108); Creatinine, Blood 0.44 mg/dL (0.60-1.20); Glucose, Blood 81.0 mg/dL (70-99); Potassium, Blood 3.6 mmol/L (3.5-5.5); Sodium, Blood 134.0 mmol/L (136-145)
--- NOTE | 2024-10-21 06:30 | NUR ---
SHIFT SUMMARY A/Ox2-3, DISORIENTED TO TIME AND SITUATION INTERMITTENTLY. ST RHYTHM, OTHER VSS ON RA. RESTLESS FOR MOST OF NIGHT, FELL ASLEEP AROUND 0430. PT EXPRESSED EAGERNESS TO GO HOME, VERBALIZED MOTIVATION TO WORK WITH PT/OT. OSTOMY APPLIANCE INTACT. DOUGLASS DRAINING TO GRAVITY. PT REPORTS 10/10 NECK PAIN, MANAGED WITH SCHEDULED AND PRN MEDS. SAFETY PRECAUTIONS IN PLACE, CALL LIGHT IN REACH.
[2024-10-21 08:39] VITALS: BP 120/63
--- NOTE | 2024-10-21 10:48 | NUR ---
TELE VERIFICATION SCANNED TELE STRIP DATED 10/21/24 AT 07:31 VERIFIED NSR W/PAC'S IN 90'S.
[2024-10-21 16:26] VITALS: BP 119/57
--- NOTE | 2024-10-21 18:40 | NUR ---
SHIFT SUMMARY PT CONT LEVEL OF CARE WITH NO ACUTE CHANGES NOTED. PT DSG TO ABD MIDLINE AND OSTOMY HAS BEEN CHANGED THIS SHIFT PER ORDERS. PT NOTED TO BE UP IN CHAIR THIS SHIFT AND WORKED WITH THERAPY. PT NOTED TO BE VERY IMPULSIVE AND YELLING OUT THIS SHIFT. PT STATED HE JUST WANTS TO GO HOME AND THAT HE IS BORD WHEN YOU ASK WHAT YOU CAN HELP HIM WITH. PT CONT WITH DOUGLASS. DARK YELLOW URINE WITH SEDIMENT NOTED.
[2024-10-21 20:23] VITALS: BP 125/62
--- NOTE | 2024-10-21 20:24 | NUR ---
NEW T-ORDER FOR LOPRESSOR IV 5MG NOW RECIEVED FROM THE ON-CALL HOSPITALIST NP. [place]EN[place]OD. ENTERED TO [employer] SEE EMAR.
[2024-10-21] MEDS ORDERED: Metoprolol Tartrate 1 MG/ML 5 ML VIAL IV ONE (20:25)
[2024-10-21 21:23] VITALS: BP 115/57
[2024-10-21 23:36] LABS: Hematocrit 25.9 % (37.0-53.0); Hemoglobin 8.3 g/dL (13.5-17.5)
[2024-10-21 23:47] LABS: Magnesium, Blood 1.6 mg/dL (1.6-2.4); Potassium, Blood 3.6 mmol/L (3.5-5.5)
[2024-10-22] VITALS (7 sets, daily range): BP systolic 108–134; BP diastolic 55–78
--- NOTE | 2024-10-22 04:09 | NUR ---
SHIFT SUMMARY @HS, PT'S HR UP FROM 90'S TO SUSTAINING @ 150-160'S. NEW ORDER FOR LOPRESSOR IV 5MG X1 RECEIVED FROM THE ON-CALL HOSPITALIST. BP STABLE. NO OTHER CALLS FORM DIE FORGER NOTIFYING OF HR>100 SINCE THE ADMINISTRATION OF IV LOPRESSOR. SCHEDULED PO LOPRESSOR ADMINISTERED AT MIDNIGHT. ILEOSTOMY DRAINING LIQUID BROWN STOOL. DOUGLASS DRAINING TEA COLOR URINE. @HS PT C/O NECK PAIN 11/06. MEDICATED WITH HS SCHEDULED TRAMADOL. PT HAS BEEN CALLING OUT/YELLING FOR STAFF AND "BROTHER" DURING THIS SHIFT. REORIENTED AND PT APPEARS APOLOGETIC, BUT CONTINUES INTERMITTENTLY TO YELL FROM THE HOSPITAL ROOM. CONTINUING PT EDUCATION. PT IS ABLE TO PRESS THE CALL LIGHT. A/O X2-3. HS BG 98. MIDLINE DRESSING C/D./I. PT SCRATCHING THE DRESSING INTERMITTENTLY. BED AT THE LOWEST POSITION, CALL LIGHT W/I REACH.
[2024-10-22 04:58] LABS: BASOPHILS ABSOLUTE AUTO 0.04 K/mm3 (0.00-0.23); BASOPHILS PERCENT AUTO 1 % (0-2); EOSINOPHILS ABSOLUTE AUTO 0.06 K/mm3 (0.00-0.68); EOSINOPHILS PERCENT AUTO 1 % (0-6); Hematocrit 25.9 % (37.0-53.0); Hemoglobin 8.4 g/dL (13.5-17.5); IMMATURE GRAN ABSOLUTE AUTO 0.04 K/mm3 (0.00-0.10); IMMATURE GRAN PERCENT AUTO 1 % (0-1); LYMPHOCYTES ABSOLUTE AUTO 0.85 K/mm3 (0.84-5.20); LYMPHOCYTES PERCENT AUTO 12 % (21-46); MONOCYTES ABSOLUTE AUTO 0.33 K/mm3 (0.16-1.47); MONOCYTES PERCENT AUTO 5 % (4-13); Mean Corpuscular HGB Conc 32.4 g/dL (31.5-36.5); Mean Corpuscular Volume 90 fL (80-100); NEUTROPHILS ABSOLUTE AUTO 5.91 K/mm3 (1.96-9.15); NEUTROPHILS PERCENT AUTO 82 % (41-73); NRBC ABSOLUTE 0.00 K/mm3 (0.00-0.02); NRBC Auto 0.0 /100 WBC (0.0-0.2); Platelet Count 266 K/mm3 (150-400); RDW Coefficient Variation 19.2 % (11.7-14.2); RDW Standard Deviation 60.7 fL (35.1-46.3)
[2024-10-22 05:41] LABS: Alanine Aminotransfer (ALT/SGP 24.0 U/L (12-78); Albumin, Blood 1.8 g/dL (3.4-5.0); Albumin/Globulin Ratio 0.4 (0.8-1.8); Anion Gap 8.0 mmol/L (3-11); Aspartate Aminotrans (AST/SGOT 30.0 U/L (12-37); Bilirubin, Total 0.7 mg/dL (0.1-1.0); Blood Urea Nitrogen 8.0 mg/dL (8-24); CO2, Blood 28.0 mmol/L (21-32); Calcium, Blood 7.7 mg/dL (8.5-10.1); Chloride, Blood 102.0 mmol/L (98-108); Creatinine, Blood 0.45 mg/dL (0.60-1.20); Globulin, Blood 4.2 g/dL (2.2-4.0); Glucose, Blood 99.0 mg/dL (70-99); Potassium, Blood 3.4 mmol/L (3.5-5.5); Sodium, Blood 135.0 mmol/L (136-145); Total Protein, Blood 6.0 g/dL (6.4-8.2)
--- NOTE | 2024-10-22 11:30 | NUR ---
stoma ileostomy applinace changed d/t leaking wafer. Picture taken of stoma and surrounding skin. Sutues visible around the edge of the stoma. At about 6 O'clock position a small open area is noted along the margin. Stoma opening ovoid in shape. Stoma draining yellow/brown mucoid materail. No odor noted. cleaned skin with wound claener. allow to air dry. applied skin barrier. Allowed to air dry. Cut stoma opening to approximate stoma opening shape. Pt tolerated well. Care ongoing.
--- NOTE | 2024-10-22 18:34 | NUR ---
NOTE PT ALERT. HE HAS A HAND TREMOR WHERE HE CONSTITANTLY PICKS/SCRATCH MOTION. MIDLINE ABD DRESSING CHANGED THIS MORNING WITH DR CHUNG. PT PICKED/RUBBED IT APART. RE APPLIED ABD. NO DRAINAGE NOTED ON ABD. STOMA APPLIANCE REPLACED TODAY. NO LEAKING NOTED. TALKED WITH DR CHUNG ABOUT THE VISIBLE STITCHES AND THE DISTAL OPEN AREA. NO ORDERS. OSTOMY IS PUTTING OUT LIQUID/STOOL. FLATUS NOTED WELL. SKIN UNDER THE POUCH IRRITAED. APPLIED MOISTERIZER. PT EXPRESSED IMPROVEMENT IN ITCHING. TRIPLE LUMEN PICC PATENT. ALL PORTS DRAW AND FLUSH. ANTIBITICS INFUSING AT THIS TIME PER ORDER. PT GOT UP TO RECLINER THIS MORNING USING LIFT. HE YELLED AND SCREAMED THE ENTIRE TIME HE WAS UP. HE WAS COMPLAINING ABOUT HIS NECK. MEDICATED PER ORDER. TALKED WITH ANGELA ABOUT ORAL PAIN CONTROL. NO ORDERS AT THIS TIME. CARE ONGOING.
--- NOTE | 2024-10-23 03:43 | NUR ---
SHIFT SUMMARY PT AWAKE MOST OF THIS SHIFT. YELLING FOR "TASHA". PT TAKES OFF THE TELE LEADS. REAPPLIED MULTIPLE TIMES. CONTINUING PT EDUCATION, PT VERBALIZED UNDERSTANDING. PT APOLOGETIC OF THE YELLING. CONTINUES TO CALL OUT AND KEEPS PRESSING THE CALL BUTTON. WHEN ASKED FOR NEEDS, PT UNABLE TO VERBALIZE HIS NEEDS. A/O X2-3. ILEOSTOMY DRAINING LIQUID BROWN STOOL. DOUGLASS DRAINING TO GRAVITY, TEA COLOR URINE. HS BG 130.TELE SINUS TACH 95 WITH FREQUENT PVC'S. PT DENIES CP/PRESSURE. PT C/O ABDOMINAL PAIN 11/06. MEDICATED WITH SCHEDULED TRAMADOL PO AT HS. PT DID NOT REQUEST ADDITIONAL ANALGESICS. PT APPEARS PAINFUL WHEN REPOSITIONED Q2HRS T/O THIS SHIFT. BED AT THE LOWEST POSITION, CALL LIGHT W/I REACH.
[2024-10-23 05:04] LABS: BASOPHILS ABSOLUTE AUTO 0.04 K/mm3 (0.00-0.23); BASOPHILS PERCENT AUTO 1 % (0-2); EOSINOPHILS ABSOLUTE AUTO 0.08 K/mm3 (0.00-0.68); EOSINOPHILS PERCENT AUTO 1 % (0-6); Hematocrit 25.7 % (37.0-53.0); Hemoglobin 8.4 g/dL (13.5-17.5); IMMATURE GRAN ABSOLUTE AUTO 0.02 K/mm3 (0.00-0.10); IMMATURE GRAN PERCENT AUTO 0 % (0-1); LYMPHOCYTES ABSOLUTE AUTO 0.91 K/mm3 (0.84-5.20); LYMPHOCYTES PERCENT AUTO 15 % (21-46); MONOCYTES ABSOLUTE AUTO 0.33 K/mm3 (0.16-1.47); MONOCYTES PERCENT AUTO 6 % (4-13); Mean Corpuscular HGB Conc 32.7 g/dL (31.5-36.5); Mean Corpuscular Volume 89 fL (80-100); NEUTROPHILS ABSOLUTE AUTO 4.60 K/mm3 (1.96-9.15); NEUTROPHILS PERCENT AUTO 77 % (41-73); NRBC ABSOLUTE 0.00 K/mm3 (0.00-0.02); NRBC Auto 0.0 /100 WBC (0.0-0.2); Platelet Count 251 K/mm3 (150-400); RDW Coefficient Variation 19.2 % (11.7-14.2); RDW Standard Deviation 61.0 fL (35.1-46.3)
[2024-10-23 05:29] LABS: Anion Gap 7.0 mmol/L (3-11); Blood Urea Nitrogen 7.0 mg/dL (8-24); CO2, Blood 28.0 mmol/L (21-32); Calcium, Blood 7.6 mg/dL (8.5-10.1); Chloride, Blood 100.0 mmol/L (98-108); Creatinine, Blood 0.43 mg/dL (0.60-1.20); Glucose, Blood 87.0 mg/dL (70-99); Potassium, Blood 3.4 mmol/L (3.5-5.5); Sodium, Blood 132.0 mmol/L (136-145)
[2024-10-23 06:00] VITALS: BP 131/62
[2024-10-23 08:50] VITALS: BP 113/80
[2024-10-23 12:42] VITALS: BP 123/86
--- NOTE | 2024-10-23 12:44 | NUR ---
Met with pt today after conferencing with physical therapist. PT concerned that pt lacks insight into decision-making. This PC RN asked a series of questions, the patient answered incorrectly that this building is [facility] located in [place], the year is 2019, and doesn't know who the president is currently. Placed a call to pt's brother Chris, left a message requesting a return call. The plan at this time is for the patient to discharge to [facility] for long-term residential care. Plan to discuss pt's cognition with Chris, ask if he is willing to assist in pt's decision making.
[2024-10-23 17:52] VITALS: BP 125/73
[2024-10-23 20:01] VITALS: BP 129/98
[2024-10-24] VITALS (7 sets, daily range): BP systolic 95–147; BP diastolic 52–79
--- NOTE | 2024-10-24 04:39 | NUR ---
SHIFT SUMMARY NO ACUTE EVENTS DURING THIS SHIFT. PT'S HR IN 150'-160'S AFTER ADMINISTERING SCHEDULED PO METOPROLOL AT MIDNIGHT. EFFECTIVE. NO OTHER ISSUES WITH ELEVATED HR DURING THE NIGHT HRS. WAFER CHANGED TO THE ILEOSTOMY D/T LEAKAGE, BY THE BREAK NURSE. OSTOMY DRAINING DARK BROWN LIQUID STOOL, GOOD OUTPUT. DOUGLASS DRAINING TEA COLOR URINE. PT KEEPS USING THE CALL LIGHT OFTEN, BUT UNABLE TO MAKE HIS NEEDS KNOWN AT THE TIMES, WHEN ASKED HOW STAFF CAN HELP HIM. UNABLE TO REORIENT. CONTINUING PT EDUCATION. BED AT THE LOWEST POSITION, CALL LIGHT W/I REACH. HS B.
[2024-10-24 05:42] LABS: BASOPHILS ABSOLUTE AUTO 0.04 K/mm3 (0.00-0.23); BASOPHILS PERCENT AUTO 1 % (0-2); EOSINOPHILS ABSOLUTE AUTO 0.08 K/mm3 (0.00-0.68); EOSINOPHILS PERCENT AUTO 2 % (0-6); Hematocrit 26.1 % (37.0-53.0); Hemoglobin 8.3 g/dL (13.5-17.5); IMMATURE GRAN ABSOLUTE AUTO 0.03 K/mm3 (0.00-0.10); IMMATURE GRAN PERCENT AUTO 1 % (0-1); LYMPHOCYTES ABSOLUTE AUTO 0.80 K/mm3 (0.84-5.20); LYMPHOCYTES PERCENT AUTO 17 % (21-46); MONOCYTES ABSOLUTE AUTO 0.31 K/mm3 (0.16-1.47); MONOCYTES PERCENT AUTO 6 % (4-13); Mean Corpuscular HGB Conc 31.8 g/dL (31.5-36.5); Mean Corpuscular Volume 90 fL (80-100); NEUTROPHILS ABSOLUTE AUTO 3.59 K/mm3 (1.96-9.15); NEUTROPHILS PERCENT AUTO 74 % (41-73); NRBC ABSOLUTE 0.00 K/mm3 (0.00-0.02); NRBC Auto 0.0 /100 WBC (0.0-0.2); Platelet Count 233 K/mm3 (150-400); RDW Coefficient Variation 19.2 % (11.7-14.2); RDW Standard Deviation 61.6 fL (35.1-46.3)
[2024-10-24 06:01] LABS: Anion Gap 8.0 mmol/L (3-11); Blood Urea Nitrogen 8.0 mg/dL (8-24); CO2, Blood 28.0 mmol/L (21-32); Calcium, Blood 7.9 mg/dL (8.5-10.1); Chloride, Blood 101.0 mmol/L (98-108); Creatinine, Blood 0.43 mg/dL (0.60-1.20); Glucose, Blood 78.0 mg/dL (70-99); Potassium, Blood 3.4 mmol/L (3.5-5.5); Sodium, Blood 134.0 mmol/L (136-145)
[2024-10-24] MEDS ORDERED: ZINC OXIDE/PETROLATUM, YELLOW 1 APPLIC/71 GM PASTE TOP PRN (17:35)
--- NOTE | 2024-10-24 18:34 | NUR ---
SHIFT SUMMARY PATIENT A/OX2-3, PLEASANT AND COOPERATIVE WITH CARE. CONFUSED AND FORGETFUL, WILL CALL OUT FOR HIS BROTHER "TASHA" AND WHEN REORIENTED THAT HIS BROTHER IS NOT PRESENT WILL STATE "I KNOW THAT". WOUND CARE PROVIDED PER ORDER TO MIDLINE ABDOMINAL INCISION. DR. PRO NOTIFIED OF BUTTOCKS MOISTURE ASSOCIATED BREAKDOWN, NE ORDER FOR ZINC BARRIER CREAM RECIEVED AND MEPILEX TO BE PLACED TO OPEN AREAS. DOUGLASS CATHETER REMOVED THIS MORNING, PATIENT TOLERATED WELL AND HAS BEEN VOIDING, INCONTINENT. ATTENDS IN PLACE. INSULIN ORDER AND ACHS BLOOD SUGAR CHECKS DISCONTINUED AND CBG TO BE CHECKED ONCE DAILY IN THE MORNING AND PRN. FOLLOW UP CT ABDOMEN ONBTAINED. ILEOSTOMY BAG CHANGED TODAY, PATIENR PROVIDED WITH BEDBATH. POWER PICC DRESSING CHANGED THIS SHIFT. TELEMETRY IN PLACE, SINUS TACH IN 110s WITH MULTIPLE RUNS OF SVT, NO OTHER EVENTS NOTED. PATIENT COMPLINING OF PAIN "EVERYWHERE" PRN MORPHINE ADMINISTERED PER APR. NO OTHER CONCERNS AT THIS TIME, WILL CONTINUE TO MONITOR.
[2024-10-25 00:08] VITALS: BP 119/60
[2024-10-25 04:04] VITALS: BP 104/86
[2024-10-25 05:01] LABS: Alanine Aminotransfer (ALT/SGP 27.0 U/L (12-78); Albumin, Blood 1.8 g/dL (3.4-5.0); Albumin/Globulin Ratio 0.4 (0.8-1.8); Anion Gap 8.0 mmol/L (3-11); Aspartate Aminotrans (AST/SGOT 28.0 U/L (12-37); Bilirubin, Total 0.6 mg/dL (0.1-1.0); Blood Urea Nitrogen 7.0 mg/dL (8-24); CO2, Blood 29.0 mmol/L (21-32); Calcium, Blood 7.8 mg/dL (8.5-10.1); Chloride, Blood 103.0 mmol/L (98-108); Creatinine, Blood 0.43 mg/dL (0.60-1.20); Globulin, Blood 4.2 g/dL (2.2-4.0); Glucose, Blood 85.0 mg/dL (70-99); Potassium, Blood 3.6 mmol/L (3.5-5.5); Sodium, Blood 136.0 mmol/L (136-145); Total Protein, Blood 6.0 g/dL (6.4-8.2)
--- NOTE | 2024-10-25 05:12 | NUR ---
SHIFT SUMMARY: PT IS ALERT AND ORIENTED 2-3. AROUND 2246 PT WAS GIVEN LOW PRESSOR IV FOR HEART RATE SUSTAINING IN THE 150s. HEART RATE WAS NOTED TO BE IN THE 90S AFTER GIVING THE LOW PRESSOR. PT HAS A PICC LINE IN THE RIGHT UPPER ARM. PT REPOSITIONED Q2. PLAN IS FOR PT TO DC TO [facility].
[2024-10-25 05:25] LABS: BASOPHILS ABSOLUTE AUTO 0.04 K/mm3 (0.00-0.23); BASOPHILS PERCENT AUTO 1 % (0-2); EOSINOPHILS ABSOLUTE AUTO 0.12 K/mm3 (0.00-0.68); EOSINOPHILS PERCENT AUTO 3 % (0-6); Hematocrit 29.0 % (37.0-53.0); Hemoglobin 9.2 g/dL (13.5-17.5); IMMATURE GRAN ABSOLUTE AUTO 0.02 K/mm3 (0.00-0.10); IMMATURE GRAN PERCENT AUTO 1 % (0-1); LYMPHOCYTES ABSOLUTE AUTO 0.88 K/mm3 (0.84-5.20); LYMPHOCYTES PERCENT AUTO 21 % (21-46); MONOCYTES ABSOLUTE AUTO 0.34 K/mm3 (0.16-1.47); MONOCYTES PERCENT AUTO 8 % (4-13); Mean Corpuscular HGB Conc 31.7 g/dL (31.5-36.5); Mean Corpuscular Volume 91 fL (80-100); NEUTROPHILS ABSOLUTE AUTO 2.85 K/mm3 (1.96-9.15); NEUTROPHILS PERCENT AUTO 67 % (41-73); NRBC ABSOLUTE 0.00 K/mm3 (0.00-0.02); NRBC Auto 0.0 /100 WBC (0.0-0.2); Platelet Count 250 K/mm3 (150-400); RDW Coefficient Variation 19.3 % (11.7-14.2); RDW Standard Deviation 63.1 fL (35.1-46.3)
[2024-10-25 07:32] VITALS: BP 114/52
[2024-10-25 11:21] VITALS: BP 133/66
--- NOTE | 2024-10-25 13:35 | NUR ---
SPOKE WITH PT'S BROTHER TASHA AT LENGTH. PT LACKS INSIGHT TO MAKE DECISIONS REGARDING HOSPICE VS. TREATMENT. HOWEVER, THE PATIENT DOES STATE HE WANTS TO "BE COMFORTABLE, EAT AND DRINK WHAT I WANT." TASHA REQUESTS PT BE MADE DNR AND RETURN TO [facility] WITH HOSPICE ORDER. DR. MILLER ON BOARD, ORDERS PLACED.
--- NOTE | 2024-10-25 16:52 | NUR ---
TRANSFER OF CARE/D/C NOTE: REPORT CALLED AND GIVEN TO AROLDO LIGHT AT [facility]. PT BELONGINGS GATHERED AND PREPARED FOR D/C. [facility] TO PICK PT UP VIA [facility] FOR TRANSPORTATION. PICC LINE REMOVED PRIOR TO D/C.
== END 2024-10-25 17:05 | DRG 329 ==
LOC: ER 08:04 → PCU 08:05 → ICUE 17:30 → MEDS 17:30 → PCU 10-01 11:39 → MEDS 10-01 17:00 → ICUE 10-02 18:43 → PCU 10-13 19:11 → MEDS 10-14 15:00
PROVIDERS: Internal Medicine; Internal Medicine Critical Care Medicine; Nurse Practitioner Acute Care; Student in an Organized Health Care Education/Training Program; Surgery; ADMIT Family Medicine
PROC: 0T9B70Z Drainage of Bladder with Drainage Device, Via Natural or Artificial Opening (ICD-10-PCS; 2024-09-30)
PROC: 3E03329 Introduction of Other Anti-infective into Peripheral Vein, Percutaneous Approach (ICD-10-PCS; 2024-09-30)
PROC: 02HV33Z Insertion of Infusion Device into Superior Vena Cava, Percutaneous Approach (ICD-10-PCS; 2024-10-02)
PROC: 3E033XZ Introduction of Vasopressor into Peripheral Vein, Percutaneous Approach (ICD-10-PCS; 2024-10-02)
PROC: 0DTH0ZZ Resection of Cecum, Open Approach (ICD-10-PCS; 2024-10-08)
PROC: 0BH17EZ Insertion of Endotracheal Airway into Trachea, Via Natural or Artificial Opening (ICD-10-PCS; 2024-10-08)
PROC: 0D9670Z Drainage of Stomach with Drainage Device, Via Natural or Artificial Opening (ICD-10-PCS; 2024-10-08)
PROC: 30233J1 Transfusion of Nonautologous Serum Albumin into Peripheral Vein, Percutaneous Approach (ICD-10-PCS; 2024-10-08)
PROC: 0D1B0Z4 Bypass Ileum to Cutaneous, Open Approach (ICD-10-PCS; principal; 2024-10-08 16:00)
PROC: 5A09457 Assistance with Respiratory Ventilation, 24-96 Consecutive Hours, Continuous Positive Airway Pressure (ICD-10-PCS; 2024-10-10)
PROC: 30233N1 Transfusion of Nonautologous Red Blood Cells into Peripheral Vein, Percutaneous Approach (ICD-10-PCS; 2024-10-10)
PROC: 3E0336Z Introduction of Nutritional Substance into Peripheral Vein, Percutaneous Approach (ICD-10-PCS; 2024-10-12)
DX: K50.018 Crohn's disease of small intestine with other complication (principal); G92.8 Other toxic encephalopathy; J96.01 Acute respiratory failure with hypoxia; K63.1 Perforation of intestine (nontraumatic); E87.1 Hypo-osmolality and hyponatremia; K56.0 Paralytic ileus; E87.20 Acidosis, unspecified; D62 Acute posthemorrhagic anemia; I47.10 Supraventricular tachycardia, unspecified; R78.81 Bacteremia; R57.9 Shock, unspecified; Z66 Do not resuscitate; Z68.34 Body mass index [BMI] 34.0-34.9, adult; E86.1 Hypovolemia; E83.42 Hypomagnesemia; I11.0 Hypertensive heart disease with heart failure; I50.9 Heart failure, unspecified; F41.8 Other specified anxiety disorders; M19.90 Unspecified osteoarthritis, unspecified site; E11.9 Type 2 diabetes mellitus without complications; E78.5 Hyperlipidemia, unspecified; E87.8 Other disorders of electrolyte and fluid balance, not elsewhere classified; E83.51 Hypocalcemia; E88.09 Other disorders of plasma-protein metabolism, not elsewhere classified; E66.9 Obesity, unspecified; G47.33 Obstructive sleep apnea (adult) (pediatric); F31.9 Bipolar disorder, unspecified; K21.9 Gastro-esophageal reflux disease without esophagitis; R33.9 Retention of urine, unspecified; E87.6 Hypokalemia; I48.91 Unspecified atrial fibrillation; R54 Age-related physical debility; K66.9 Disorder of peritoneum, unspecified; Z98.890 Other specified postprocedural states; Z96.653 Presence of artificial knee joint, bilateral; Z96.642 Presence of left artificial hip joint; Z79.899 Other long term (current) drug therapy; Z88.0 Allergy status to penicillin; Z91.040 Latex allergy status; Z79.890 Hormone replacement therapy
CPT/HCPCS: 31720; 36415; 36430; 36556; 36569; 51702; 70450; 71045; 71260; 72125; 74177; 80048; 80053; 80069; 80400; 81001; 82330; 82533; 82803; 82947; 83605; 83690; 83735; 83880; 84100; 84132; 84478; 85014; 85018; 85025; 86850; 86900; 86901; 86923; 87040; 87086; 88305; 88307; 92526; 92610; 93005; 93010; 93306; 93308; 93321; 93970; 94002; 94003; 94640; 94660; 94664; 94760; 94762; 96361; 96365-59; 96375; 97110; 97162; 97164; 97165; 97530; 97535; 99285-25; A9270; C1751; J0360; J0612; J0692; J0696; J0834; J1100; J1171; J1650; J1938; J2250; J2270; J2405; J2470; J2704; J2765; J2795; J2919; J3010; J3373; J3411; J3475; J3480; J7030; J7040; J7050; J7060; J7120; J7131; P9016; P9047; Q9967